=== PATIENT | female | born 1935 | race Caucasian/White ===

== ENCOUNTER → 2017-03-02 | Outpatient (CLI) | payer MEDICARE, OTHER ==
--- NOTE | 2017-03-06 10:00 | MM ---
Reason for exam: screening (asymptomatic). Last mammogram was performed 1 year and 11 months ago. History: Patient is postmenopausal, is of Ashkenazi Mandae[place] descent, and history of other cancer. Family history of breast cancer in sister at age 50, breast cancer in daughter at age 50, and breast cancer in maternal aunt at age 50. Excisional biopsy of both breasts, 1982. Physical Findings: A clinical breast exam by your physician is recommended on an annual basis and results should be correlated with mammographic findings. MG 3D Screening Mammo W/Cad Bilateral CC and MLO view(s) were taken. Prior study comparison: March 23, 2015, bilateral MG screening mammo w CAD. March 28, 2013, bilateral digital screening mammo w/CAD. There are scattered fibroglandular densities. No significant changes when compared with prior studies. ASSESSMENT: Negative, BI-RAD 1 RECOMMENDATION: Routine screening mammogram of both breasts in 1 year.
== END ==
LOC: RADMAMWWP 08:53
PROVIDERS: ATTEND Family Medicine
DX: Z12.31 Encounter for screening mammogram for malignant neoplasm of breast (principal)
CPT/HCPCS: 77063; G0202

== ENCOUNTER 2017-03-21 11:04 | Inpatient (IN) | payer MEDICARE, OTHER ==
[2017-03-21] MEDS ORDERED: IPRATROPIUM-ALBUTEROL 3 ML NEB INHALATION PRN (17:09)
[2017-03-21] MEDS: HYDROmorphone 1 MG/ML 1 ML SYRINGE IVP PRN (17:38)
--- NOTE | 2017-03-21 20:02 | P.PN ---
Progress Note - Text Patient seen and evaluated with new dressing change orders placed including three times a daily with showering twice daily. Patient has a yeast infection. Will differ to infectious disease for diflucan to avoid multiple interactions.
[2017-03-21] MEDS: HYDROcodone/APAP 7.5-325MG 1 EACH TAB PO PRN (20:07)
--- NOTE | 2017-03-21 20:31 | P.GSHP ---
History of Present Illness H&P Date: 03/21/17 Chief Complaint: Complicated left buttock including left labial cellulitis The patient is a 81-year-old female known to me who was initially admitted at an outside facility 1 week ago with leukocytosis including urinary tract infection, left buttock and perineal abscess. She was placed on prophylactic antibiotics including vancomycin and Unasyn. She then underwent excision and drainage of a left buttock cellulitis with cultures coming back as methicillin- resistant staph aureus infection with sensitivity to vancomycin. Despite conservative measures including IV vancomycin, her buttock wound and left vulva had worsening cellulitis. Given the limited wound care management at her transferring institution, she was transferred to [facility] for high- level care regarding her wound care and complicated wound. Today she went back to the operating room at the outside facility to have further drainage and debridement of her left buttock including left labia with placement of [place] drains connecting the left buttock to left labia along the perineum. Since admission, she reports feeling much better. Her soreness along her perineum has improved. Her dressing changes has been performed at bedside. I have been following her since her admission at the previous facility to her transfer to [facility]. - Review of Systems Comment: CONSTITUTIONAL: No recent fevers. Denies recent weight loss or weight gain. HEENT: Denies any trouble with vision, hearing or nosebleeds. No difficulty swallowing. LYMPHATIC: The patient denies any lumps and bumps around the neck. ENDOCRINE: Has thyroid disorder. Denies any blood sugar glucose intolerance. RESPIRATORY: Denies pneumonia. Has bilateral pleural effusions and a recent computed tomography scan. CARDIOVASCULAR: Denies any chest pain, palpitations, or recent heart attacks. GASTROINTESTINAL: Denies heart burn, constipation or bright red blood per rectum. GENITOURINARY: She presented with complicated urinary tract infection one week ago. Also history of yeast infections. MUSCULOSKELETAL: Has back pain, stiffness, joint arthritis. NEUROLOGIC: Denies any numbness or tingling along the distal extremities. No seizure disorders or headaches. PSYCHIATRIC: Denies depression or suidical ideation. HEMATOLOGIC: Denies any abnormal bleeding or bruising. Past Medical History Past Medical History: Hypertension, Osteoarthritis (OA), Thyroid Disorder History of Any Multi-Drug Resistant Organisms: MRSA Date of last positivie culture/infection: 03/21/2017 MDRO Source:: groin Additional Past Surgical History / Comment(s): I&D 03/15/17 and 03/21/17 of left buttock and left labia Past Psychological History: No Psychological Hx Reported Smoking Status: Never smoker Medications and Allergies Home Medications Medication Instructions Recorded Confirmed Type Hydrochlorothiazide 25 mg PO DAILY 03/21/17 03/21/17 History L.acidoph,Paracasei, B.lactis 1 cap PO DAILY 03/21/17 03/21/17 History [Probiotic] Levothyroxine Sodium [Synthroid] 50 mcg PO DAILY 03/21/17 03/21/17 History Meloxicam [Mobic] 7.5 mg PO DAILY 03/21/17 03/21/17 History Allergies Allergy/AdvReac Type Severity Reaction Status Date / Time iodine Allergy Unknown Unknown Verified 03/21/17 18:11 morphine Allergy Unknown Unknown Verified 03/21/17 18:11 codeine Allergy Unknown Verified 03/21/17 18:11 Sulfa (Sulfonamide Allergy Unknown Verified 03/21/17 18:11 Antibiotics) Surgical - Exam Vital Signs Temp Pulse Resp BP Pulse Ox 97.8 F 107 H 16 131/88 92 L 03/21/17 16:28 03/21/17 16:28 03/21/17 16:28 03/21/17 16:28 03/21/17 16:28 GENERAL: Well developed and in no acute distress. Pleasant. HEENT: No sclera icterus. Extraocular movements grossly intact. Moist buccal mucosa. Head is atraumatic, normocephalic. Hears conversational speech. No nasal drainage. NECK: Supple without lymphadenopathy. No JV distention. CHEST: Non-labored respirations and equal bilateral excursions. CARDIOVASCULAR: Regular rate and rhythm. Palpable 2+ radial pulses. ABDOMEN: Soft, nontender. Nondistended. MUSCULOSKELETAL: No clubbing, cyanosis or edema. NEUROLOGIC: No focal or lateralizing signs. PSYCH: Appropriate affect. Alert and oriented to person, place and time. SKIN: Decreased cellulitis and erythema of the left labia compared to this morning at outside facility. Cellulitis and induration of the left buttock improved since this morning. : Eason catheter present. Results - Imaging CT scan - abdomen: image reviewed CT scan - pelvis: image reviewed (CT of the abdomen and pelvis was obtained at outside institution on 03/20/2017 and personally reviewed. Findings consistent with bilateral pleural effusions. Increased induration of the left buttock and perineum was identified.) Assessment and Plan (1) Cellulitis of buttock, left Status: Acute (2) Left genital labial abscess Status: Acute (3) MRSA (methicillin resistant staph aureus) culture positive Status: Acute (4) Hypertension Status: Acute (5) Debility Status: Acute (6) Hypothyroidism Status: Acute (7) Bilateral pleural effusion Status: Acute (8) UTI (urinary tract infection) Status: Acute (9) Yeast infection involving the vagina and surrounding area Status: Acute Plan: 1. She has history of urinary tract infection from the transferring facility with an indwelling catheter. Recommend discontinuing her Eason catheter to minimize risk for recurrent ureteral tract infection. 2. CBC repeat for complicated buttock cellulitis with multidrug resistant organism. 3. Recommend home health care evaluation. 4. Recommend rehab evaluation given complicated perineum and buttock wound. 5. Dressing changes have been adjusted for Aquacell Ag rope with 4 inch packing along wound followed by 4 x 4's and ABDs pads three times daily. Jolene drain to continue with discharge and to be removed in the office. 6. Additional recommendations from infectious disease for treatment of yeast infection. 7. Recommend showering once to twice daily. 8. At this time, no additional surgical intervention needed.
[2017-03-21] MEDS: CLINDAMYCIN 600 MG in DEXTROSE 5% IN WATER 50 ML IVPB SCH ×2 (23:04)
[2017-03-21] MEDS: HEPARIN SODIUM,PORCINE 5,000 UNIT/ML 1 ML VIAL SQ SCH (23:04)
[2017-03-22] MEDS: LEVOTHYROXINE 50 MCG TAB PO SCH (05:16)
[2017-03-22] MEDS: HYDROcodone/APAP 7.5-325MG 1 EACH TAB PO PRN ×5 (05:16→22:30)
[2017-03-22] MEDS: HEPARIN SODIUM,PORCINE 5,000 UNIT/ML 1 ML VIAL SQ SCH ×2 (07:40→16:04)
[2017-03-22] MEDS: PANTOPRAZOLE 40 MG TABLET PO SCH (07:40)
[2017-03-22] MEDS: CLINDAMYCIN 600 MG in DEXTROSE 5% IN WATER 50 ML IVPB SCH ×2 (07:40)
[2017-03-22] MEDS: HYDROmorphone 1 MG/ML 1 ML SYRINGE IVP PRN ×3 (08:18→20:52)
[2017-03-22 09:00] LABS: Basophils % (A) 0 %; CH 31.3; CHCM 33.4; Eosinophils % (A) 0 %; HDW 2.48; HGB 12.9 gm/dL (11.4-16.0); Luc # (Auto) 0.14; Luc % (Auto) 2; Lymphocytes # (A) 1.4 k/uL (1.0-4.8); Lymphocytes % (A) 15 %; MCHC 34.1 g/dL (31.0-37.0); Mean Platelet Volume 7.9; Monocytes # (A) 0.3 k/uL (0-1.0); Monocytes % (A) 3 %; Neutrophils # (A) 7.3 k/uL (1.3-7.7); Neutrophils % (A) 80 %; RBC 4.04 m/uL (3.80-5.40); RDW 13.5 % (11.5-15.5); WBC 9.2 k/uL (3.8-10.6); WBC (Perox) 9.07
--- NOTE | 2017-03-22 09:27 | XR ---
EXAMINATION TYPE: XR chest 2V DATE OF EXAM: 03/22/2017 COMPARISON: 1014 HISTORY: Shortness of breath TECHNIQUE: Frontal and lateral views of the chest are obtained. FINDINGS: Scattered senescent parenchymal changes noted. Hyperinflation compatible with COPD. No evidence for infiltrate. No evidence for atelectasis. Heart size is stable. Small bilateral pleural effusions. Mediastinal structures are stable and grossly unremarkable. No evidence for hilar prominence. Degenerative changes dorsal spine. IMPRESSION: 1. No evidence for acute pulmonary disease. Small pleural effusions.
[2017-03-22 10:33] LABS: Anion Gap 6 mmol/L; Blood Urea Nitrogen 9 mg/dL (7-17); Calcium 8.3 mg/dL (8.4-10.2); Carbon Dioxide 29 mmol/L (22-30); Chloride 100 mmol/L (98-107); Glucose 101 mg/dL (74-99); Non-African American GFR(MDRD) >60 (>60 ml/min/1.73 sqM); Potassium 4.2 mmol/L (3.5-5.1); Sodium 135 mmol/L (137-145)
--- NOTE | 2017-03-22 10:53 | P.PN ---
<Verónica Zamudio - Last Filed: 03/22/17 10:44> Subjective 81-year-old female seen and examined this morning. Patient states there is less pain involving the left labia and left buttocks. Patient states if she attempts to sit up causes pain involving the left buttocks the left labia. Patient was a transfer to [facility] from another facility [facility] on March 21 for a higher level of care due to a complicated left labia cellulitis. Patient approximate week ago was admitted to an outside facility at that time had leukocytosis with a urinary tract infection with a left buttock and perineal abscess. Patient was placed on prophylactic antibiotics IV vancomycin and Unasyn. Patient underwent an excision and drainage of the left buttocks abscess cultures came back MRSA with sensitivity to vancomycin. Despite conservative measurements including IV daptomycin patient went back to the operating room at the other facility for further drainage and debridement of the left buttocks including the left labia with placement of 2 Jolene drains connecting the left buttock to the left labia along the peritoneum. Patient has been followed throughout the patient's course of hospitalizations by Dr. George. This morning the dressing has been removed the left buttocks and the left labia continues to be tender to the touch 2 [place] drains are in place the area is firm with redness. Currently has an indwelling Eason catheter in place. No odor noted from the dressings moderate amount of serous drainage Objective - Vital Signs Vital signs: Vital Signs Temp 96.2 F L 03/22/17 07:00 Pulse 73 03/22/17 07:00 Resp 18 03/22/17 07:00 BP 118/63 03/22/17 07:00 Pulse Ox 93 L 03/22/17 07:00 Intake & Output 03/21/17 03/22/17 03/22/17 18:59 06:59 18:59 Output Total 1100 Balance -1100 Weight 90 kg Output: Urine 1100 Other: Voiding Method Indwelling Catheter Indwelling Catheter - Exam GENERAL APPEARANCE: 81-year-old female patient is alert, oriented, in no acute distress. States there's less soreness from the peritoneal area VITAL SIGNS: Reviewed HEENT: Head is normocephalic and atraumatic. Pupils are equal and reactive. The nares are patent. Oropharynx is clear without lesions. NECK: Supple without lymphadenopathy. Traches midline. HEART: S1, S2. Regular rate and rhythm. Denying chest pain no murmur LUNGS: No crackles or wheezes are heard. Adequate air movement on room air ABDOMEN: Soft, nontender, nondistended with good bowel sounds. No peritoneal signs. No palpable organomegaly or masses. No stool patient reports 5 days indwelling Eason catheter currently in place EXTREMITIES: Normal skin color and turgor. No cyanosis, rash, ulceration, clubbing or edema. Radial pedal pulses are 2/4 bilaterally. NEUROLOGICAL: No focal deficits. Strength and sensation are grossly intact. there is decreased cellulitis and erythrema involving the left labia radiating to the left buttocks. Currently [address] Significant firm area noted to the left labia in the suprapubic area - Labs CBC & Chem 7: 03/22/17 07:45 03/22/17 09:45 Assessment and Plan Plan: Impression Assessment and Plan (1) Cellulitis of buttock, left Status: Acute (2) Left genital labial abscess Status: Acute (3) MRSA (methicillin resistant staph aureus) culture positive Status: Acute (4) Hypertension Status: Acute (5) Debility Status: Acute (6) Hypothyroidism Status: Acute (7) Bilateral pleural effusion Status: Acute (8) UTI (urinary tract infection) Status: Acute (9) Yeast infection involving the vagina and surrounding area Status: Acute Shower once to twice daily Await infectious diseases recommendations for treatment of the yeast infection Wound care as ordered Aquacel rope with 4 inch packing 3 times a day Jolene drain to continue with discharge and will be removed and Dr. George' s office History of a UTI from transferring facility with an indwelling Eason catheter Family is asking for Dr. Sanford infectious disease to participate in the plan of care we'll consult The above dictated assessment and findings were discussed with dr george Impression and the plan of care have been dictated as directed. Verónica Zamudio nurse practitioner acting as a scribe for dr george <Kylee George - Last Filed: 03/24/17 16:18> Objective - Vital Signs Vital signs: Vital Signs Temp 96.6 F L 03/24/17 15:00 Pulse 92 03/24/17 15:00 Resp 16 03/24/17 15:00 BP 108/53 03/24/17 15:00 Pulse Ox 92 L 03/24/17 15:00 Intake & Output 03/23/17 03/24/17 03/24/17 18:59 06:59 18:59 Intake Total 240 Balance 240 Intake: Oral 240 Other: Voiding Method Toilet # Voids 3 4 2 # Bowel Movements 0 - Labs CBC & Chem 7: 03/24/17 08:51 03/24/17 08:51 Labs: Abnormal Lab Results - Last 24 Hours (Table) 03/24/17 Range/Units 08:51 Glucose 105 H (74-99) mg/dL Assessment and Plan (1) Cellulitis of buttock, left Status: Acute (2) Left genital labial abscess Status: Acute (3) MRSA (methicillin resistant staph aureus) culture positive Status: Acute (4) Hypertension Status: Acute (5) Debility Status: Acute (6) Hypothyroidism Status: Acute (7) Bilateral pleural effusion Status: Acute (8) UTI (urinary tract infection) Status: Acute (9) Yeast infection involving the vagina and surrounding area Status: Acute Plan: Agree with above. Please see separate documentation.
[2017-03-22] MEDS: FLUCONAZOLE 150 MG TAB PO SCH (11:36)
[2017-03-22] MEDS: POLYETHYLENE GLYCOL 3350 17 GM POWD.PACK PO SCH (11:36)
[2017-03-22] MEDS: NYSTATIN 100,000 UNIT/ML SUSP 500,000 UNIT/5 ML CUP PO SCH ×3 (11:37→20:52)
[2017-03-22] MEDS: DOCUSATE 100 MG CAP PO SCH ×2 (11:37→20:51)
--- NOTE | 2017-03-22 13:43 | P.CONS ---
History of Present Illness - Reason for Consult Consult date: 03/22/17 Wound care and antibiotics - History of Present Illness This is an 81-year-old female who gives history that she has had problems since October in the perineal area and was initially seen by Dr. Friend and Cora BACH at Dr. Friend's office. She states she was placed on ointment and an antibiotic and then was sent to Dr. Edward and also Dr. Salazar. She states she has had 3 urinary tract infections since October and thinks that abscess to the perineal area has been ongoing since October. She also has had problems with vaginal yeast infections. Patient states she went to [facility] due to fevers and pain was going down her legs and she couldn't move with generalized malaise and lack of appetite. She was found to have leukocytosis at , thrombocytopenia with a platelet count of 123 and was admitted to the hospital. She was seen by Dr. Vargas from infectious disease. She was on Unasyn and vancomycin and also during her stay at [facility] she had some doses of clindamycin and Zyvox which may have been started on March 20. Patient went to the OR for I&D on 2 occasions, March 15 and [address] Starks. She had 2 CAT scans done and the repeat done on March 21 revealed inflammatory change in the perineum on the left side with subcutaneous air and density consistent with small abscess. New presacral fluid. Perineal inflammation to worry changes are significantly increased from last CAT scan. She had a urinalysis that showed nitrate negative. Leukocytes 3+, blood 1+. Apparently wound culture was positive for MRSA. She was transferred to [facility] for further treatment and is currently on clindamycin and daptomycin. She is on Diflucan for oral thrush which she states is much improved. She also states that her appetite has improved. Her white count is down to 9.2. Patient is planning for subacute rehab at the time of discharge. Patient is also noted to have a Eason catheter that was placed at [facility] and was discontinued this morning. Patient denies any urinary retention. Review of Systems All systems: negative Constitutional: Reports chills, Reports fatigue, Reports fever, Reports lethargy , Reports malaise, Reports poor appetite, Reports weakness Eyes: denies blurred vision, denies pain Ears, nose, mouth and throat: Reports mouth pain, Denies headache, Denies sore throat Cardiovascular: Denies chest pain, Denies shortness of breath Respiratory: Denies cough, Denies cough with sputum, Denies dyspnea, Denies excessive sputum, Denies hemoptysis Gastrointestinal: Denies abdominal pain, Denies diarrhea, Denies nausea, Denies vomiting Genitourinary: Reports dysuria, Reports vaginal discharge, Reports vaginal odor , Denies hematuria Musculoskeletal: Denies myalgias Integumentary: Reports wounds, Denies pruritus, Denies rash Neurological: Denies numbness, Denies weakness Psychiatric: Denies anxiety, Denies depression Endocrine: Denies fatigue, Denies weight change Past Medical History Past Medical History: COPD, Hypertension, Osteoarthritis (OA), Thyroid Disorder Additional Past Medical History / Comment(s): Cystic breast, 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 History of Any Multi-Drug Resistant Organisms: MRSA Year Discovered:: 03/21/2017 MDRO Source:: groin Past Surgical History: Appendectomy, Tonsillectomy Additional Past Surgical History / Comment(s): Varicose vein stripping, bilateral cataract removal and intraocular lens implants, skin biopsies and skin cancer removal, breast lumpectomy, I&D 03/15/17 and 03/21/17 of left buttock and left labia Past Psychological History: No Psychological Hx Reported Smoking Status: Never smoker Additional Past Alcohol Use History / Comment(s): Patient is a lifelong nonsmoker but she did have years of exposure to secondhand smoke. 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 She denies any medical marijuana, marijuana, street drug use. She drinks alcohol very rare basis. Medications and Allergies Home Medications Medication Instructions Recorded Confirmed Type Hydrochlorothiazide 25 mg PO DAILY 03/21/17 03/21/17 History L.acidoph,Paracasei, B.lactis 1 cap PO DAILY 03/21/17 03/21/17 History [Probiotic] Levothyroxine Sodium [Synthroid] 50 mcg PO DAILY 03/21/17 03/21/17 History Meloxicam [Mobic] 7.5 mg PO DAILY 03/21/17 03/21/17 History Allergies Allergy/AdvReac Type Severity Reaction Status Date / Time iodine Allergy Unknown Unknown Verified 03/21/17 18:11 morphine Allergy Unknown Unknown Verified 03/21/17 18:11 codeine Allergy Unknown Verified 03/21/17 18:11 Sulfa (Sulfonamide Allergy Unknown Verified 03/21/17 18:11 Antibiotics) Physical Exam Vitals: Vital Signs Temp Pulse Resp BP Pulse Ox 03/22/17 07:00 96.2 F L 73 18 118/63 93 L 03/21/17 23:00 96.9 F L 90 17 98/66 92 L 03/21/17 17:58 107 H 16 03/21/17 16:28 97.8 F 107 H 16 131/88 92 L Intake and Output 03/21/17 03/22/17 03/22/17 22:59 06:59 14:59 Output Total 350 750 Balance -350 -750 Output: Urine 350 750 Other: Voiding Method Indwelling Catheter Indwelling Catheter Weight 90 kg Gen: This is an 81-year-old female. She is sitting up in a chair and eating lunch and appears to be in no acute distress. HEENT: Head is atraumatic, normocephalic. Pupils equal, round. Sclerae is anicteric. Conjunctiva pink. Mucous members of the mouth are moist. No thrush noted. NECK: Supple. No JVD. No lymphadenopathy. No thyromegaly. LUNGS: Diminished in the bases but otherwise clear to auscultation. No wheezes or rhonchi. No intercostal retractions. HEART: Regular rate and rhythm. No murmur. ABDOMEN: Soft. Bowel sounds are present. No masses. No tenderness. Perineal exam deferred to Dr. Sanford. EXTREMITIES: No pedal edema. No calf tenderness. Dorsalis pedis weak bilaterally. NEUROLOGICAL: Patient is awake, alert and oriented x3. Cranial nerves 2 through 12 are grossly intact. Results Results: Laboratory Results WBC 9.2 k/uL (3.8-10.6) 03/22/17 07:45 RBC 4.04 m/uL (3.80-5.40) 03/22/17 07:45 Hgb 12.9 gm/dL (11.4-16.0) 03/22/17 07:45 Hct 38.0 % (34.0-46.0) 03/22/17 07:45 MCV 94.0 fL (80.0-100.0) 03/22/17 07:45 MCH 32.0 pg (25.0-35.0) 03/22/17 07:45 MCHC 34.1 g/dL (31.0-37.0) 03/22/17 07:45 RDW 13.5 % (11.5-15.5) 03/22/17 07:45 Plt Count 290 k/uL (150-450) 03/22/17 07:45 Neutrophils % 80 % 03/22/17 07:45 Lymphocytes % 15 % 03/22/17 07:45 Monocytes % 3 % 03/22/17 07:45 Eosinophils % 0 % 03/22/17 07:45 Basophils % 0 % 03/22/17 07:45 Neutrophils # 7.3 k/uL (1.3-7.7) 03/22/17 07:45 Lymphocytes # 1.4 k/uL (1.0-4.8) 03/22/17 07:45 Monocytes # 0.3 k/uL (0-1.0) 03/22/17 07:45 Eosinophils # 0.0 k/uL (0-0.7) 03/22/17 07:45 Basophils # 0.0 k/uL (0-0.2) 03/22/17 07:45 Sodium 135 mmol/L (137-145) L 03/22/17 09:45 Potassium 4.2 mmol/L (3.5-5.1) 03/22/17 09:45 Chloride 100 mmol/L (98-107) 03/22/17 09:45 Carbon Dioxide 29 mmol/L (22-30) 03/22/17 09:45 Anion Gap 6 mmol/L 03/22/17 09:45 BUN 9 mg/dL (7-17) 03/22/17 09:45 Creatinine 0.72 mg/dL (0.52-1.04) 03/22/17 09:45 Est GFR (MDRD) Af Amer >60 (>60 ml/min/1.73 sqM) 03/22/17 09:45 Est GFR (MDRD) Non-Af >60 (>60 ml/min/1.73 sqM) 03/22/17 09:45 Glucose 101 mg/dL (74-99) H 03/22/17 09:45 Calcium 8.3 mg/dL (8.4-10.2) L 03/22/17 09:45 CBC & Chem 7: 03/24/17 08:51 03/24/17 08:51 Labs: Abnormal Lab Results - Last 24 Hours (Table) 03/22/17 Range/Units 09:45 Sodium 135 L (137-145) mmol/L Glucose 101 H (74-99) mg/dL Calcium 8.3 L (8.4-10.2) mg/dL Assessment and Plan Plan: This is an 81-year-old female who presented to [facility] on March 13 with signs of sepsis and left labial abscess and buttocks cellulitis. Patient is currently on IV antibiotics the form of clindamycin and daptomycin. Antibiotics will be changed to daptomycin and ertapenem. Local wound care will be addressed. Continue supportive care. Further recommendations as patient progresses. The above dictated assessment and findings were discussed with Dr. Sanford. The impression and plan of care have been directed as dictated. Lenora Fernandez nurse practitioner acting as scribe for Dr. Sanford.
[2017-03-22] MEDS ORDERED: diphenhydrAMINE 50 MG/ML 1 ML VIAL IVP STA (14:22)
--- NOTE | 2017-03-22 18:17 | P.CON ---
Consult Note - . Consult date: 03/22/17 Assessment/Plan:: This is an 81-year-old female who gives history that she has had problems since October in the perineal area and was initially seen by Dr. Friend and Cora BACH at Dr. Friend's office. She states she was placed on ointment and an antibiotic and then was sent to Dr. Edward and also Dr. Salazar. She states she has had 3 urinary tract infections since October and thinks that abscess to the perineal area has been ongoing since October. She also has had problems with vaginal yeast infections. Patient states she went to [facility] due to fevers and pain was going down her legs and she couldn't move with generalized malaise and lack of appetite. She was found to have leukocytosis at 17, thrombocytopenia with a platelet count of 123 and was admitted to the hospital. She was seen by Dr. Vargas from infectious disease. She was on Unasyn and vancomycin and also during her stay at [facility] she had some doses of clindamycin and Zyvox which may have been started on March 20. Patient went to the OR for I&D on 2 occasions, March 15 and March [address] Starks. She had 2 CAT scans done and the repeat done on March 21 revealed inflammatory change in the perineum on the left side with subcutaneous air and density consistent with small abscess. New presacral fluid. Perineal inflammation to worry changes are significantly increased from last CAT scan. She had a urinalysis that showed nitrate negative. Leukocytes 3+, blood 1+. Apparently wound culture was positive for MRSA. She was transferred to [facility] for further treatment and is currently on clindamycin and daptomycin. She is on Diflucan for oral thrush which she states is much improved. She also states that her appetite has improved. Her white count is down to 9.2. Patient is planning for subacute rehab at the time of discharge. Patient is also noted to have a Eason catheter that was placed at [facility] and was discontinued this morning. Patient denies any urinary retention. Please see the consult note is dictated by nurse practitioner Mrs. Lenora Fernandez. Patient does have a history of the sudden onset of the significant infection. The Vanco RAIN is 2. Consequently vancomycin likely has failed will be utilized for daptomycin therapy for now. The data from the other hospital also reveals evidence of gram-negative bacilli seen at the original Gram stain and culture and consequently will add in ertapenem at this time for treatment of aerobic and anaerobic gram-negative organisms. Local wound care is being done with the Aquacel silver and absorptive pads which is adequate. Air mattress overlay as requested Patient is evidence of a painful set of blisters in the very proximal aspect of the buttocks. Appears this could be shingles. Valtrex will be started. When sure she is getting adequate protein intake, and multivitamin. Will need IV access the PICC line which has been requested. I agree with evaluation, assessment and plan as dictated by nurse practitioner Mrs. Lenora Fernandez.
[2017-03-22] MEDS: ERTAPENEM 1 GM in SODIUM CHLORIDE 0.9% 50 ML IVPB SCH (20:51)
[2017-03-22] MEDS: valACYclovir 500 MG TAB PO SCH (20:52)
[2017-03-22 21:15] LABS: Hemoglobin A1C 5.6 % (4.2-6.1)
--- NOTE | 2017-03-22 21:55 | P.PN ---
Progress Note - Text Patient seen and evaluated.Fmaily at bedside. Patient reports improvement of buttock and perineum discomfort. WBC now normal after 9 days. Patient reports new onset flushing following Diflucan. Daughter reports new heart irregular rhythm present just prior to admission. Will obtain EKG and cardiology assessment. Discharge pending evaluation by infectious disease including cardiology assessment. Agree with rehab for recovery.
[2017-03-23] MEDS: HEPARIN SODIUM,PORCINE 5,000 UNIT/ML 1 ML VIAL SQ SCH ×3 (00:32→17:05)
[2017-03-23] MEDS: HYDROmorphone 1 MG/ML 1 ML SYRINGE IVP PRN ×6 (00:58→22:46)
[2017-03-23] MEDS: HYDROcodone/APAP 7.5-325MG 1 EACH TAB PO PRN ×5 (02:42→20:16)
[2017-03-23] MEDS: LEVOTHYROXINE 50 MCG TAB PO SCH (05:33)
--- NOTE | 2017-03-23 06:50 | CONS ---
DATE OF CONSULTATION: 03/22/2017 REASON FOR CONSULTATION: Medical management requested by Dr. Starks. CONSULTATION: This is an 81-year-old patient who was admitted to [facility] from 03/13/17 and transferred yesterday on 03/21/17. Patient presented with extensive buttock abscess and this was started as a pimple back in October then it got worse and one week prior to presentation became rather severe. Patient initially taken to the operating room on 03/15/[address] Starks then taken back to the OR on 03/21/17 as the wound had seemed to progress. Patient's cultures did grow MRSA. Patient was followed by Dr. Saxena ) from internal medicine and Dr. Vargas from infectious disease at the other center. On the day of transfer, I resumed the medical service care. Patient also seen to have an allergic reaction to VANCOMYCIN. The patient was switched over daptomycin prior to transfer and actually patient had a petechial rash from the same, which actually was getting better. REVIEW OF SYSTEMS: CONSTITUTIONAL: Tired. HEENT: None. RESPIRATORY: Some shortness of breath. CARDIOVASCULAR: None. GASTROINTESTINAL: None. GENITOURINARY: Eason catheter. DERMATOLOGICAL: As above. LYMPHATICS: None. PSYCHIATRY: None. NEUROLOGICAL: None. MUSCULOSKELETAL: Pains in different joints, especially the hands and knees. PSYCHIATRY: None. PAST MEDICAL HISTORY: Osteoarthritis, COPD, hypertension, hypothyroid, GERD with hiatal hernia. PAST SURGICAL HISTORY: Appendectomy, tonsillectomy, varicose vein stripping, bilateral cataract removal, skin biopsies, breast lumpectomy. SOCIAL HISTORY: Lives by herself. 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 Alcohol rarely. No smoking. FAMILY HISTORY: Reviewed, noncontributory to the presentation. CURRENT MEDICATIONS: Daptomycin, artificial tears, DuoNeb, Diflucan, Jolley, Synthroid 50, Protonix, MiraLAX, Valtrex. On examination, temperature 96.5, pulse 85, respirations 19, blood pressure 112/59, pulse ox 95% on room air. GENERAL APPEARANCE: Well built, BMI of 35. Sitting up, tired appearing. EYES: Pupils equal. Conjunctivae normal. HEENT: Oral cavity some aphthous ulcers. NECK: JVD not raised. Mass not palpable. RESPIRATORY: Effort normal. Lungs are clear. CARDIOVASCULAR: First and second sounds normal. No edema. ABDOMEN: Soft, nontender. Liver and spleen not palpable. LYMPHATIC: No lymph nodes palpable in neck or axillae. PSYCHIATRY: Alert and oriented x3. Mood and affect normal. There is an early rash in the lower back. INVESTIGATIONS: White count 9.2, hemoglobin 12.9. Potassium 4.2. ASSESSMENT: 1. Left buttock abscess, status post being taken to the OR x2. Cultures growing methicillin-resistant Staphylococcus aureus. 2. Primary osteoarthritis in multiple joints, including hands and knees. 3. Chronic obstructive pulmonary disease in a nonsmoker. 4. Essential hypertension. 5. Hypothyroidism. 6. Gastroesophageal reflux disease in a patient with hiatal hernia. 7. Allergic reaction to VANCOMYCIN. 8. Possibly herpes zoster. 9. Aphthous ulceration of the mouth. 10. Atrial fibrillation, rate controlled, new diagnosis. PLAN: At this point, patient's home medications will be continued. Will order a 2-D echocardiogram. Check patient's thyroid status and will start the patient on Eliquis after I discuss this with the family and the patient. Antibiotics are coordinated by Dr. Sanford. Care was discussed. Patient's family wishes to change the family doctor. Will discuss that closer to discharge.
[2017-03-23] MEDS: valACYclovir 500 MG TAB PO SCH ×2 (08:27→20:17)
[2017-03-23] MEDS: FLUCONAZOLE 150 MG TAB PO SCH (08:27)
[2017-03-23] MEDS: DOCUSATE 100 MG CAP PO SCH ×2 (08:27→20:17)
[2017-03-23] MEDS: POLYETHYLENE GLYCOL 3350 17 GM POWD.PACK PO SCH (08:27)
[2017-03-23] MEDS: NYSTATIN 100,000 UNIT/ML SUSP 500,000 UNIT/5 ML CUP PO SCH ×4 (08:27→20:17)
[2017-03-23] MEDS: PANTOPRAZOLE 40 MG TABLET PO SCH (08:27)
--- NOTE | 2017-03-23 11:23 | P.PN ---
Subjective 81-year-old female being seen and examined this morning currently patient states continues to have pain in the perineal area. Patient is being followed by infectious disease and surgical service Patient was transferred from [facility] where patient was being treated at the facility for fever pain was found to have a perineal abscess. Patient had been followed at the facility by Dr. Starks had gone to the OR on [address] Starks March 15 and March 21 at which time patient had an incision and drainage of the perineal abscess. Subsequent the patient's family and the patient requested to be transferred to [facility] from the facility due to a higher level of care due to the complicated left labia cellulitis abscess. Did note infectious diseases recommendations they did start the patient on Valtrex for what appears to be shingles painful blisters in the proximal aspect of the buttocks.. The wound cultures that were obtained at the other facility were apparently positive for MRSA.. Eason catheter has been removed patient states urinating with no difficulty no stool Objective - Vital Signs Vital signs: Vital Signs Temp 96.5 F L 03/22/17 23:00 Pulse 84 03/23/17 07:00 Resp 19 03/23/17 07:00 BP 128/71 03/23/17 07:00 Pulse Ox 95 03/23/17 07:00 Intake & Output 03/22/17 03/23/17 03/23/17 18:59 06:59 18:59 Intake Total 500 Balance 500 Intake: Oral 500 Other: Voiding Method Indwelling Catheter Toilet Toilet Bedside Commode # Voids 1 3 1 # Bowel Movements 0 - Exam GENERAL APPEARANCE: 81-year-old female patient is alert, oriented to person place event, . States there's less soreness from the peritoneal area VITAL SIGNS: Reviewed HEENT: Head is normocephalic and atraumatic. Pupils are equal and reactive. The nares are patent. Oropharynx is clear without lesions. NECK: Supple without lymphadenopathy. Traches midline. HEART: S1, S2. Regular rate and rhythm. Denying chest pain no murmur LUNGS: No crackles or wheezes are heard. Adequate air movement on room air no cough noted ABDOMEN: Soft, nontender, nondistended with good bowel sounds. No peritoneal signs. No palpable organomegaly or masses. States urinating no difficulty no incontinence. No stool EXTREMITIES: Normal skin color and turgor. No cyanosis, rash, ulceration, clubbing or edema. Radial pedal pulses are 2/4 bilaterally. NEUROLOGICAL: No focal deficits. Strength and sensation are grossly intact. there is decreased cellulitis and erythrema involving the left labia radiating to the left buttocks. Currently [address] Significant firm area noted to the left labia in the suprapubic area surgical dressing removed a moderate amount of serous drainage noted no odor noted from the area - Labs CBC & Chem 7: 03/22/17 07:45 03/22/17 09:45 Labs: Abnormal Lab Results - Last 24 Hours (Table) 03/22/17 03/22/17 Range/Units 07:40 09:45 ESR 25 H (0-20) mm/hr Prealbumin 11 L (18-36) mg/dL Assessment and Plan Plan: Impression Assessment and Plan (1) Cellulitis of buttock, left Status: Acute (2) Left genital labial abscess Status: Acute (3) MRSA (methicillin resistant staph aureus) culture positive Status: Acute (4) Hypertension Status: Acute (5) Debility Status: Acute (6) Hypothyroidism Status: Acute (7) Bilateral pleural effusion Status: Acute (8) UTI (urinary tract infection) Status: Acute (9) Yeast infection involving the vagina and surrounding area Status: Acute Suspect shingles proximal aspect of the buttocks present on admission Valtrex started And MAX recommendations by infectious disease Shower once to twice daily Wound care as ordered Aquacel rope with 4 inch packing 3 times a day Jolene drain to continue with discharge and will be removed and Dr. Starks' s office History of a UTI from transferring facility with an indwelling Eason catheter Follow-up on pending echocardiogram done on March 23 manager loan pursuing the discharge plan patient and family interested in subacute rehab when medically stable The above dictated assessment and findings were discussed with dr starks Impression and the plan of care have been dictated as directed. Verónica Zamudio nurse practitioner acting as a scribe for dr starks
[2017-03-23] MEDS: MULTIVITAMINS, THERA 1 EACH TAB PO SCH (12:17)
--- NOTE | 2017-03-23 12:36 | ECHOF ---
Referral Reason:af MEASUREMENTS -------- HEIGHT: 160.0 cm WEIGHT: 89.8 kg BP: 118/58 RVIDd: 2.2 cm (< 3.3) IVSd: 1.0 cm (0.6 - 1.1) LVIDd: 4.1 cm (3.9 - 5.3) LVPWd: 1.1 cm (0.6 - 1.1) IVSs: 1.1 cm LVIDs: 3.1 cm LVPWs: 1.2 cm LA Diam: 3.4 cm (2.7 - 3.8) LAESV Index (A-L): 20.49 ml/m Ao Diam: 3.2 cm (2.0 - 3.7) AV Cusp: 1.7 cm (1.5 - 2.6) LA Diam: 3.0 cm (2.7 - 3.8) MV EXCURSION: 22.278 mm (> 18.000) MV EF SLOPE: 129 mm/s (70 - 150) EPSS: 0.5 cm MV E Gus: 0.83 m/s MV DecT: 106 ms MV A Gus: 0.39 m/s MV E/A Ratio: 2.11 RAP: 5.00 mmHg RVSP: 37.39 mmHg FINDINGS -------- Atrial fibrillation. This was a technically adequate study. There is mild concentric left ventricular hypertrophy. Overall left ventricular systolic function is low-normal with, an EF between 50 - 55 %. The right ventricle is normal in size. The right atrial size is normal. There is mild aortic valve sclerosis. There is no evidence of aortic regurgitation. Mild mitral annular calcification present. Moderate mitral regurgitation is present. Moderate tricuspid regurgitation present. There is mild pulmonary hypertension. The right ventricular systolic pressure, as measured by Doppler, is 37.39mmHg. There is no pulmonic regurgitation present. There is no pericardial effusion. CONCLUSIONS -------- 1. There is mild concentric left ventricular hypertrophy. 2. There is no pericardial effusion. 3. Overall left ventricular systolic function is low-normal with, an EF between 50 - 55 %. 4. There is mild aortic valve sclerosis. 5. Mild mitral annular calcification present. 6. Moderate mitral regurgitation is present. 7. Moderate tricuspid regurgitation present. 8. There is mild pulmonary hypertension. 9. The right ventricular systolic pressure, as measured by Doppler, is 37.39mmHg. 10. There is no pulmonic regurgitation present. HELICOPTER MECHANIC: Daniella Casillas RDCS
[2017-03-23] MEDS: ERTAPENEM 1 GM in SODIUM CHLORIDE 0.9% 50 ML IVPB SCH (20:07)
--- NOTE | 2017-03-23 21:19 | P.PN ---
Subjective Principal diagnosis: Labia abscess with MRSA This is an 81-year-old female who gives history that she has had problems since October in the perineal area and was initially seen by Dr. Friend and Cora BACH at Dr. Friend's office. She states she was placed on ointment and an antibiotic and then was sent to Dr. Edward and also Dr. Salazar. She states she has had 3 urinary tract infections since October and thinks that abscess to the perineal area has been ongoing since October. She also has had problems with vaginal yeast infections. Patient states she went to [facility] due to fevers and pain was going down her legs and she couldn't move with generalized malaise and lack of appetite. She was found to have leukocytosis at 17, thrombocytopenia with a platelet count of 123 and was admitted to the hospital. She was seen by Dr. Vargas from infectious disease. She was on Unasyn and vancomycin and also [facility] she had some doses of clindamycin and Zyvox which may have been started on March 20. Patient went to the OR for I&D on 2 occasions, March 15 and March [address] Starks. She had 2 CAT scans done and the repeat done on March 21 revealed inflammatory change in the perineum on the left side with subcutaneous air and density consistent with small abscess. New presacral fluid. Perineal inflammation to worry changes are significantly increased from last CAT scan. She had a urinalysis that showed nitrate negative. Leukocytes 3+, blood 1+. Apparently wound culture was positive for MRSA. She was transferred to [facility] for further treatment and is currently on clindamycin and daptomycin. She is on Diflucan for oral thrush which she states is much improved. She also states that her appetite has improved. Patient feels better today. Still discontinued because amount of pain and discomfort she is having but is being well treated. Air mattress overlay to the bed was very comforting. She is no other acute complaints. Looks forward to improving over time. Objective - Vital Signs Vital signs: Vital Signs Temp 97.2 F L 03/23/17 15:00 Pulse 99 03/23/17 15:00 Resp 18 03/23/17 15:00 BP 108/58 03/23/17 15:00 Pulse Ox 93 L 03/23/17 15:00 Intake & Output 03/23/17 03/23/17 03/24/17 06:59 18:59 06:59 Intake Total 500 Balance 500 Intake: Oral 500 Other: Voiding Method Toilet Toilet Bedside Commode # Voids 3 3 # Bowel Movements 0 - Exam Gen: This is an 81-year-old female. She is sitting up in a chair and eating lunch and appears to be in no acute distress. HEENT: Head is atraumatic, normocephalic. Pupils equal, round. Sclerae is anicteric. Conjunctiva pink. Mucous members of the mouth are moist. No thrush noted. NECK: Supple. No JVD. No lymphadenopathy. No thyromegaly. LUNGS: Diminished in the bases but otherwise clear to auscultation. No wheezes or rhonchi. No intercostal retractions. HEART: Regular rate and rhythm. No murmur. ABDOMEN: Soft. Bowel sounds are present. No masses. No tenderness. With the nurses presents the genital exam had occurred. Evidence of the large incision and drainage to the left labial abscess. Dense induration is noted. Some warmth and erythema still noted. Still quite tender to touch. It does track down to the left buttocks area. There is no expressible purulence through the thick indurated tissue. EXTREMITIES: No pedal edema. No calf tenderness. Dorsalis pedis weak bilaterally. NEUROLOGICAL: Patient is awake, alert and oriented x3 - Labs CBC & Chem 7: 03/22/17 07:45 03/22/17 09:45 Labs: Abnormal Lab Results - Last 24 Hours (Table) 03/22/17 Range/Units 07:40 ESR 25 H (0-20) mm/hr Laboratory Results WBC 9.2 k/uL (3.8-10.6) 03/22/17 07:45 RBC 4.04 m/uL (3.80-5.40) 03/22/17 07:45 Hgb 12.9 gm/dL (11.4-16.0) 03/22/17 07:45 Hct 38.0 % (34.0-46.0) 03/22/17 07:45 MCV 94.0 fL (80.0-100.0) 03/22/17 07:45 MCH 32.0 pg (25.0-35.0) 03/22/17 07:45 MCHC 34.1 g/dL (31.0-37.0) 03/22/17 07:45 RDW 13.5 % (11.5-15.5) 03/22/17 07:45 Plt Count 290 k/uL (150-450) 03/22/17 07:45 Neutrophils % 80 % 03/22/17 07:45 Lymphocytes % 15 % 03/22/17 07:45 Monocytes % 3 % 03/22/17 07:45 Eosinophils % 0 % 03/22/17 07:45 Basophils % 0 % 03/22/17 07:45 Neutrophils # 7.3 k/uL (1.3-7.7) 03/22/17 07:45 Lymphocytes # 1.4 k/uL (1.0-4.8) 03/22/17 07:45 Monocytes # 0.3 k/uL (0-1.0) 03/22/17 07:45 Eosinophils # 0.0 k/uL (0-0.7) 03/22/17 07:45 Basophils # 0.0 k/uL (0-0.2) 03/22/17 07:45 ESR 25 mm/hr (0-20) H 03/22/17 07:40 Sodium 135 mmol/L (137-145) L 03/22/17 09:45 Potassium 4.2 mmol/L (3.5-5.1) 03/22/17 09:45 Chloride 100 mmol/L (98-107) 03/22/17 09:45 Carbon Dioxide 29 mmol/L (22-30) 03/22/17 09:45 Anion Gap 6 mmol/L 03/22/17 09:45 BUN 9 mg/dL (7-17) 03/22/17 09:45 Creatinine 0.72 mg/dL (0.52-1.04) 03/22/17 09:45 Est GFR (MDRD) Af Amer >60 (>60 ml/min/1.73 sqM) 03/22/17 09:45 Est GFR (MDRD) Non-Af >60 (>60 ml/min/1.73 sqM) 03/22/17 09:45 Glucose 101 mg/dL (74-99) H 03/22/17 09:[address] Glu mg/dL 114 mg/dL 03/22/17 09:45 Hemoglobin A1c 5.6 % (4.2-6.1) 03/22/17 09:45 Calcium 8.3 mg/dL (8.4-10.2) L 03/22/17 09:45 Prealbumin 11 mg/dL (18-36) L 03/22/17 09:45 TSH 1.520 mIU/L (0.465-4.680) 03/22/17 09:45 Other facility reveals evidence of MRSA at this site. Vanco RAIN of 2. Assessment and Plan (1) Left genital labial abscess Narrative/Plan: Patient does have a history of the sudden onset of the significant infection. The Vanco RAIN is 2. Consequently vancomycin likely has failed will be utilized for daptomycin therapy for now. The data from the other hospital also reveals evidence of gram-negative bacilli seen at the original Gram stain and culture and consequently will add in ertapenem at this time for treatment of aerobic and anaerobic gram-negative organisms. Local wound care is being done with the Aquacel silver and absorptive pads which is adequate. Air mattress overlay as been placed and improved her comfort. Patient is evidence of a painful set of blisters in the very proximal aspect of the buttocks. Appears this could be shingles. Valtrex will be started. Awaiting improvement When sure she is getting adequate protein intake, and multivitamin. Will need IV access the PICC line has been requested. Status: Acute (2) MRSA (methicillin resistant staph aureus) culture positive Status: Acute
--- NOTE | 2017-03-23 21:33 | P.PN ---
Progress Note - Text DATE OF SERVICE: 03/23/2017 PRESENTING COMPLAINT: Medical management, buttock abscess INTERVAL HISTORY: This is a patient who was transferred from the [facility] with treatment for buttock abscess. Patient's cultures grew MRSA and is on antibiotics per ID. Today, patient is sitting up with family at the bedside, appears pale but awake alert and conversant. Tolerating her diet, sitting the chair periodically and ambulatory with some assistance. REVIEW OF SYSTEMS: Done for constitutional ,cardiovascular, GI, pulmonary with relevant findings as above. CURRENT MEDICATIONS [place], daptomycin, ertapenem, Diflucan, valacyclovir, Protonix, nystatin,. PHYSICAL EXAM: VITAL SIGNS: Temperature 96.5 pulse 85 respiratory rate 19 blood pressure 112/ 59 oxygen saturation 95% on room air. GENERAL APPEARANCE: Average build. Lying in bed, not in distress. EYES: Pupils equal. Conjunctiva normal. NECK: JVD not raised. Mass not palpable. RESPIRATORY: Respiratory effort normal. Lungs clear to auscultation. CARDIOVASCULAR: First and second sounds normal. No edema. ABDOMEN: Soft. Liver and spleen not palpable. No tenderness. No mass palpable. PSYCHIATRY: Alert and oriented x3. Mood and affect normal. NEUROLOGICAL: Cranial nerves grossly intact. No facial asymmetry. Power and sensation grossly intact GENITOURINARY: Perineum noted to have some drainage Jolene drain in place as well as packing. INVESTIGATIONS: Echocardiogram: Atrial fibrillation, EF between 50 and 55% No new labs to report. ASSESSMENT: 1. Left buttock abscess, status post being taken to the OR 2. Cultures growing methicillin-resistant Staphylococcus aureus. 2. Acute herpes zoster 3. Primary osteoarthritis of multiple joints, including hands and knees. 4. Essential hypertension. 5. Hypothyroidism. 6. Gastroesophageal reflux disease in a patient with a hiatal hernia. 7. ALLERGIC reaction to VANCOMYCIN PLAN: Patient to be started on anticoagulation secondary to atrial fibrillation. Antibiotics to continue, Valtrex for herpes zoster. We'll continue to monitor closely. SEASONER statement: Patient was seen and examined by nurse practitioner Carmne Morin in all elements of the case discussed with attending is Dr. Portillo
[2017-03-23] MEDS: APIXABAN 5 MG TAB PO SCH (22:48)
[2017-03-24] MEDS: HYDROcodone/APAP 7.5-325MG 1 EACH TAB PO PRN ×5 (00:21→18:59)
[2017-03-24] MEDS: HYDROmorphone 1 MG/ML 1 ML SYRINGE IVP PRN ×4 (03:51→21:13)
[2017-03-24] MEDS: LEVOTHYROXINE 50 MCG TAB PO SCH (06:24)
[2017-03-24] MEDS: PANTOPRAZOLE 40 MG TABLET PO SCH (08:00)
[2017-03-24] MEDS: APIXABAN 5 MG TAB PO SCH ×2 (09:00→21:51)
[2017-03-24 09:15] LABS: Basophils % (A) 1 %; CHCM 33.1; Eosinophils # (A) 0.1 k/uL (0-0.7); Eosinophils % (A) 1 %; HCT 37.4 % (34.0-46.0); HDW 2.41; HGB 12.4 gm/dL (11.4-16.0); Luc % (Auto) 3; Lymphocytes # (A) 1.6 k/uL (1.0-4.8); Lymphocytes % (A) 21 %; MCH 31.2 pg (25.0-35.0); MCHC 33.1 g/dL (31.0-37.0); MCV 94.3 fL (80.0-100.0); Mean Platelet Volume 6.9; Monocytes # (A) 0.4 k/uL (0-1.0); Monocytes % (A) 5 %; Neutrophils # (A) 5.5 k/uL (1.3-7.7); Neutrophils % (A) 69 %; RBC 3.97 m/uL (3.80-5.40); RDW 13.8 % (11.5-15.5); WBC 7.9 k/uL (3.8-10.6); WBC (Perox) 8.39
[2017-03-24 09:46] LABS: Anion Gap 10 mmol/L; Blood Urea Nitrogen 8 mg/dL (7-17); Calcium 8.4 mg/dL (8.4-10.2); Carbon Dioxide 26 mmol/L (22-30); Chloride 101 mmol/L (98-107); Glucose 105 mg/dL (74-99); Non-African American GFR(MDRD) >60 (>60 ml/min/1.73 sqM); Potassium 4.2 mmol/L (3.5-5.1); Sodium 137 mmol/L (137-145)
[2017-03-24] MEDS: FLUCONAZOLE 150 MG TAB PO SCH (10:25)
[2017-03-24] MEDS: POLYETHYLENE GLYCOL 3350 17 GM POWD.PACK PO SCH (10:26)
[2017-03-24] MEDS: NYSTATIN 100,000 UNIT/ML SUSP 500,000 UNIT/5 ML CUP PO SCH ×4 (10:26→21:51)
[2017-03-24] MEDS: valACYclovir HCL 1,000 MG TABLET PO SCH ×2 (10:29→21:51)
[2017-03-24] MEDS: DOCUSATE 100 MG CAP PO SCH ×2 (10:29→21:51)
--- NOTE | 2017-03-24 12:17 | PN ---
DATE OF SERVICE: 03/23/2017 ATTENDING NOTE: This patient was seen and examined by me today. I reviewed the note of my nurse practitioner, Ms. Morin. Discussed additional findings below. Patient has got a buttock abscess, status post surgery x2 also being treated for herpes zoster. Also found to have atrial fibrillation. A 2-D echo was ordered. The patient tolerating some diet. Has actually walked to the bathroom. Sat up on chair. Did tolerate some food. Two daughters at the bedside. ON EXAM: LUNGS: Fair air entry. CARDIOVASCULAR: Heart sounds irregular. ABDOMEN: Soft, nontender. INVESTIGATIONS: No blood work from today. EKG did show atrial fibrillation. The 2-D echocardiogram shows EF of 50% to 55%, moderate mitral regurgitation, moderate tricuspid regurgitation, preserved LV function. TSH is normal. ASSESSMENT: 1. Left buttock abscess, status post surgery x2. Cultures growing methicillin-resistant Staphylococcus aureus. 2. Acute herpes zoster. 3. Persistent atrial fibrillation, new diagnosis, present for the last few days, but this was probably found at surgery. PLAN: Care was discussed at length with the patient's family members. Patient will be started on Eliquis. Care was discussed with the patient and 2 daughters in details. Will start the patient on Eliquis.
--- NOTE | 2017-03-24 13:11 | P.CRDCN ---
History of Present Illness Consult date: 03/24/17 History of present illness: This is a pleasant 81-year-old female patient with no prior cardiac history who never seen a machine printer hose in the past who was admitted to the hospital with what it seems to be an extensive abscess involving the buttock area as well as the back. The patient underwent 2 surgeries and she is going to have a PICC line this coming Monday before she is going to be discharged home. We get involved in the care of the patient because she went into an A. fib yesterday which seems to be any radial diagnosis atrial fibrillation. The patient has been maintaining a good blood pressure and slightly elevated heart rate. She was started on anticoagulation using Eliquis. She denies having any chest pain at this point but she stated that she was at home experiencing rare episodes of chest discomfort. She underwent an echocardiogram which showed normal LV function without any significant valvular abnormalities. I am going to add a small dose of metoprolol to the current medical treatment. Continue anticoagulation. We will follow-up with the patient on a when necessary case. 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 History of Any Multi-Drug Resistant Organisms: MRSA Date of last positivie culture/infection: 03/21/2017 MDRO Source:: groin Past Surgical History: Appendectomy, Tonsillectomy Additional Past Surgical History / Comment(s): Varicose vein stripping, bilateral cataract removal and intraocular lens implants, skin biopsies and skin cancer removal, breast lumpectomy, I&D 03/15/17 and 03/21/17 of left buttock and left labia Past Psychological History: No Psychological Hx Reported Smoking Status: Never smoker Additional Past Alcohol Use History / Comment(s): Patient is a lifelong nonsmoker but she did have years of exposure to secondhand smoke. 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 She denies any medical marijuana, marijuana, street drug use. She drinks alcohol very rare basis. Medications and Allergies Home Medications Medication Instructions Recorded Confirmed Type Hydrochlorothiazide 25 mg PO DAILY 03/21/17 03/21/17 History L.acidoph,Paracasei, B.lactis 1 cap PO DAILY 03/21/17 03/21/17 History [Probiotic] Levothyroxine Sodium [Synthroid] 50 mcg PO DAILY 03/21/17 03/21/17 History Meloxicam [Mobic] 7.5 mg PO DAILY 03/21/17 03/21/17 History Allergies Allergy/AdvReac Type Severity Reaction Status Date / Time iodine Allergy Unknown Unknown Verified 03/21/17 18:11 morphine Allergy Unknown Unknown Verified 03/21/17 18:11 codeine Allergy Unknown Verified 03/21/17 18:11 Sulfa (Sulfonamide Allergy Unknown Verified 03/21/17 18:11 Antibiotics) Physical Exam Vitals: Vital Signs Temp Pulse Resp BP Pulse Ox 03/24/17 07:00 97.2 F L 108 H 18 121/76 96 03/23/17 23:00 96.7 F L 83 18 103/51 92 L 03/23/17 15:00 97.2 F L 99 18 108/58 93 L Intake and Output 03/23/17 03/24/17 03/24/17 22:59 06:59 14:59 Intake Total 240 Balance 240 Intake: Oral 240 Other: Voiding Method Toilet # Voids 3 4 - Constitutional General appearance: no acute distress - Respiratory Respiratory: bilateral: CTA - Cardiovascular Rhythm: irregularly irregular Heart sounds: normal: S1, S2 Results 03/24/17 08:51 03/24/17 08:51 CBC 03/24/17 Range/Units 08:51 WBC 7.9 (3.8-10.6) k/uL RBC 3.97 (3.80-5.40) m/uL Hgb 12.4 (11.4-16.0) gm/dL Hct 37.4 (34.0-46.0) % Plt Count 359 (150-450) k/uL Comprehensive Metabolic Panel 03/24/17 Range/Units 08:51 Sodium 137 (137-145) mmol/L Potassium 4.2 (3.5-5.1) mmol/L Chloride 101 (98-107) mmol/L Carbon Dioxide 26 (22-30) mmol/L BUN 8 (7-17) mg/dL Creatinine 0.74 (0.52-1.04) mg/dL Glucose 105 H (74-99) mg/dL Calcium 8.4 (8.4-10.2) mg/dL Current Medications Generic Name Dose Route Start Last Admin Trade Name Freq PRN Reason Stop Dose Admin Hydrocodone Bitart/Acetaminophen 1 each 03/21/17 17:07 03/24/17 10:24 [place] 7.5-325 PO 1 each Q4H PRN Administration Moderate Pain Albuterol/Ipratropium 3 ml 03/21/17 17:09 Duoneb 0.5 Mg-3 Mg/3 Ml Soln INHALATION RT-TID PRN Shortness Of Breath Or Wheezing Apixaban 5 mg 03/23/17 22:00 03/24/17 09:00 Eliquis PO 5 mg BID BLANCA Administration Artificial Tears 2 drops 03/22/17 17:57 Artificial Tear Drops BOTH EYES QID PRN Dry Eye(s) Docusate Sodium 100 mg 03/22/17 11:00 03/24/17 10:29 Colace PO 100 mg BID BLANCA Administration Fluconazole 150 mg 03/22/17 10:30 03/24/17 10:25 Diflucan PO 150 mg DAILY BLANCA Administration Hydromorphone HCl 0.5 mg 03/21/17 17:07 03/24/17 09:33 Dilaudid IVP 0.5 mg Q4HR PRN Administration Severe Pain Daptomycin 400 mg/ Sodium 50 mls @ 100 mls/hr 03/22/17 09:00 03/24/17 10:25 Chloride IV 100 mls/hr Q24HR BLANCA Administration Ertapenem 1 gm/ Sodium 50 mls @ 100 mls/hr 03/22/17 19:00 03/23/17 20:07 Chloride IVPB 100 mls/hr Q24H BLANCA Administration Levothyroxine Sodium 50 mcg 03/22/17 06:30 03/24/17 06:24 Synthroid PO 50 mcg DAILY@0630 BLANCA Administration Metoprolol Tartrate 12.5 mg 03/24/17 21:00 Lopressor PO BID BLANCA Multivitamins 1 each 03/23/17 12:00 03/23/17 12:17 Theragran PO 1 each DAILY@1200 BLANCA Administration Nystatin 500,000 unit 03/22/17 12:00 03/24/17 10:26 Mycostatin Oral Susp PO 500,000 unit QID BLANCA Administration Pantoprazole Sodium 40 mg 03/22/17 07:30 03/24/17 08:00 Protonix PO 40 mg [id number]-[id number] BLANCA Administration Polyethylene Glycol 17 gm 03/22/17 11:00 03/24/17 10:26 Miralax PO 17 gm DAILY BLANCA Administration Valacyclovir HCl 1,000 mg 03/24/17 09:00 03/24/17 10:29 Valtrex PO 1,000 mg BID BLANCA Administration Intake and Output 03/23/17 03/24/17 03/24/17 22:59 06:59 14:59 Intake Total 240 Balance 240 Intake: Oral 240 Other: Voiding Method Toilet # Voids 3 4 03/24/17 08:51 03/24/17 08:51 Assessment and Plan Plan: Assessment #1 atrial fibrillation which seems to be newly diagnosis #2 abscesses involving the buttock and low back Plan #1 add metoprolol to the current medical treatment #2 continue anticoagulation #3 the echocardiogram was reviewed We will continue following up with the patient on when necessary case and thank you for allowing us participate in her care
--- NOTE | 2017-03-24 13:20 | P.PN ---
Subjective Principal diagnosis: Labia abscess with MRSA This is an 81-year-old female who gives history that she has had problems since October in the perineal area and was initially seen by Dr. Friend and Cora BACH at Dr. Friend's office. She states she was placed on ointment and an antibiotic and then was sent to Dr. Edward and also Dr. Salazar. She states she has had 3 urinary tract infections since October and thinks that abscess to the perineal area has been ongoing since October. She also has had problems with vaginal yeast infections. Patient states she went to [facility] due to fevers and pain was going down her legs and she couldn't move with generalized malaise and lack of appetite. She was found to have leukocytosis at 17, thrombocytopenia with a platelet count of 123 and was admitted to the hospital. She was seen by Dr. Vargas from infectious disease. She was on Unasyn and vancomycin and also during her stay at [facility] she had some doses of clindamycin and Zyvox which may have been started on March 20. Patient went to the OR for I&D on 2 occasions, March 15 and March [address] Starks. She had 2 CAT scans done and the repeat done on March 21 revealed inflammatory change in the perineum on the left side with subcutaneous air and density consistent with small abscess. New presacral fluid. Perineal inflammation to worry changes are significantly increased from last CAT scan. She had a urinalysis that showed nitrate negative. Leukocytes 3+, blood 1+. Apparently wound culture was positive for MRSA. She was transferred to [facility] for further treatment and is currently on clindamycin and daptomycin. She is on Diflucan for oral thrush which she states is much improved. She also states that her appetite has improved. Patient feels better today. Still discontinued because amount of pain and discomfort she is having but is being well treated. Air mattress overlay to the bed was very comforting. She is no other acute complaints. Looks forward to improving over time. We'll add in his seat cushion also so when she is up in the chair she has less discomfort. Objective - Vital Signs Vital signs: Vital Signs Temp 97.2 F L 03/24/17 07:00 Pulse 108 H 03/24/17 07:00 Resp 18 03/24/17 07:00 BP 121/76 03/24/17 07:00 Pulse Ox 96 03/24/17 07:00 Intake & Output 03/23/17 03/24/17 03/24/17 18:59 06:59 18:59 Intake Total 240 Balance 240 Intake: Oral 240 Other: Voiding Method Toilet # Voids 3 4 # Bowel Movements 0 - Exam Gen: This is an 81-year-old female. She is sitting up in a chair and eating lunch and appears to be in no acute distress. HEENT: Head is atraumatic, normocephalic. Pupils equal, round. Sclerae is anicteric. Conjunctiva pink. Mucous members of the mouth are moist. No thrush noted. NECK: Supple. No JVD. No lymphadenopathy. No thyromegaly. LUNGS: Diminished in the bases but otherwise clear to auscultation. No wheezes or rhonchi. No intercostal retractions. HEART: Regular rate and rhythm. No murmur. ABDOMEN: Soft. Bowel sounds are present. No masses. No tenderness. With the nurses presents the genital exam had occurred. Evidence of the large incision and drainage to the left labial abscess. Dense induration is noted. Some warmth and erythema still noted. Still quite tender to touch. It does track down to the left buttocks area. There is no expressible purulence through the thick indurated tissue. EXTREMITIES: No pedal edema. No calf tenderness. Dorsalis pedis weak bilaterally. NEUROLOGICAL: Patient is awake, alert and oriented x3 Skin the area of blisters on the midpoint of the back just above the buttocks fold is noted slightly improved. Still slightly tender. Has not increased. - Labs CBC & Chem 7: 03/24/17 08:51 03/24/17 08:51 Labs: Abnormal Lab Results - Last 24 Hours (Table) 03/24/17 Range/Units 08:51 Glucose 105 H (74-99) mg/dL Laboratory Results WBC 7.9 k/uL (3.8-10.6) 03/24/17 08:51 RBC 3.97 m/uL (3.80-5.40) 03/24/17 08:51 Hgb 12.4 gm/dL (11.4-16.0) 03/24/17 08:51 Hct 37.4 % (34.0-46.0) 03/24/17 08:51 MCV 94.3 fL (80.0-100.0) 03/24/17 08:51 MCH 31.2 pg (25.0-35.0) 03/24/17 08:51 MCHC 33.1 g/dL (31.0-37.0) 03/24/17 08:51 RDW 13.8 % (11.5-15.5) 03/24/17 08:51 Plt Count 359 k/uL (150-450) 03/24/17 08:51 Neutrophils % 69 % 03/24/17 08:51 Lymphocytes % 21 % 03/24/17 08:51 Monocytes % 5 % 03/24/17 08:51 Eosinophils % 1 % 03/24/17 08:51 Basophils % 1 % 03/24/17 08:51 Neutrophils # 5.5 k/uL (1.3-7.7) 03/24/17 08:51 Lymphocytes # 1.6 k/uL (1.0-4.8) 03/24/17 08:51 Monocytes # 0.4 k/uL (0-1.0) 03/24/17 08:51 Eosinophils # 0.1 k/uL (0-0.7) 03/24/17 08:51 Basophils # 0.0 k/uL (0-0.2) 03/24/17 08:51 ESR 25 mm/hr (0-20) H 03/22/17 07:40 Sodium 137 mmol/L (137-145) 03/24/17 08:51 Potassium 4.2 mmol/L (3.5-5.1) 03/24/17 08:51 Chloride 101 mmol/L (98-107) 03/24/17 08:51 Carbon Dioxide 26 mmol/L (22-30) 03/24/17 08:51 Anion Gap 10 mmol/L 03/24/17 08:51 BUN 8 mg/dL (7-17) 03/24/17 08:51 Creatinine 0.74 mg/dL (0.52-1.04) 03/24/17 08:51 Est GFR (MDRD) Af Amer >60 (>60 ml/min/1.73 sqM) 03/24/17 08:51 Est GFR (MDRD) Non-Af >60 (>60 ml/min/1.73 sqM) 03/24/17 08:51 Glucose 105 mg/dL (74-99) H 03/24/17 08:[address] Glu mg/dL 114 mg/dL 03/22/17 09:45 Hemoglobin A1c 5.6 % (4.2-6.1) 03/22/17 09:45 Calcium 8.4 mg/dL (8.4-10.2) 03/24/17 08:51 Prealbumin 11 mg/dL (18-36) L 03/22/17 09:45 TSH 1.520 mIU/L (0.465-4.680) 03/22/17 09:45 Assessment and Plan (1) Left genital labial abscess Narrative/Plan: Patient does have a history of the sudden onset of the significant infection. The Vanco RAIN is 2. Consequently vancomycin likely has failed will be utilized for daptomycin therapy for now. The data from the other hospital also reveals evidence of gram-negative bacilli seen at the original Gram stain and culture and consequently will add in ertapenem at this time for treatment of aerobic and anaerobic gram-negative organisms. Local wound care is being done with the Aquacel silver and absorptive pads which is adequate. Air mattress overlay as been placed and improved her comfort. Patient is evidence of a painful set of blisters in the very proximal aspect of the buttocks. Appears this could be shingles. Valtrex was started. Showing minimal improvement continue covering with the DuoDERM. When sure she is getting adequate protein intake, and multivitamin. Will need IV access the PICC line has been requested. Continue to try to maximize her comfort an air cushion for her chair is requested. Status: Acute (2) MRSA (methicillin resistant staph aureus) culture positive Status: Acute
[2017-03-24] MEDS: MULTIVITAMINS, THERA 1 EACH TAB PO SCH (13:27)
--- NOTE | 2017-03-24 14:34 | P.PN ---
Subjective 81-year-old female being seen currently sitting up in a chair. Patient does state there continues to be persistent pain involving the peritoneal area. There is less swelling in the perineal area with less drainage noted. Has [address]. Patient is scheduled to have a PICC line placed for outpatient antibiotic therapy this is to be scheduled on Monday currently on hold did note that the patient had an episode of atrial fibrillation on the . Cardiology is participating in the plan of care patient was started on elquist Patient did have an echocardiogram done March 23. It showed left systolic function low normal with an EF between 50 and 55%. Patient continues to deny any chest pain or shortness of breath when questioning Objective - Vital Signs Vital signs: Vital Signs Temp 97.2 F L 03/24/17 07:00 Pulse 108 H 03/24/17 07:00 Resp 18 03/24/17 07:00 BP 121/76 03/24/17 07:00 Pulse Ox 96 03/24/17 07:00 Intake & Output 03/23/17 03/24/17 03/24/17 18:59 06:59 18:59 Intake Total 240 Balance 240 Intake: Oral 240 Other: Voiding Method Toilet # Voids 3 4 # Bowel Movements 0 - Exam GENERAL APPEARANCE: 81-year-old female patient is alert, oriented to person place event, . States slight improvement from the pain in the peritoneal area VITAL SIGNS: Reviewed HEENT: Head is normocephalic and atraumatic. Pupils are equal and reactive. The nares are patent. Oropharynx is clear without lesions. NECK: Supple without lymphadenopathy. Traches midline. HEART: S1, S2. Regular rate and rhythm. Denying chest pain no murmur LUNGS: No crackles or wheezes are heard. Adequate air movement on room air no cough noted ABDOMEN: Soft, nontender, nondistended with good bowel sounds. No peritoneal signs. No palpable organomegaly or masses. States urinating no difficulty no incontinence. No stool EXTREMITIES: Normal skin color and turgor. No cyanosis, rash, ulceration, clubbing or edema. Radial pedal pulses are 2/4 bilaterally. NEUROLOGICAL: No focal deficits. Strength and sensation are grossly intact. there is decreased cellulitis and erythrema involving the left labia radiating to the left buttocks. Currently [address] Significant firm area noted to the left labia in the suprapubic area surgical dressing removed a moderate amount of serous drainage noted no odor noted from the area - Labs CBC & Chem 7: 03/24/17 08:51 03/24/17 08:51 Labs: Abnormal Lab Results - Last 24 Hours (Table) 03/24/17 Range/Units 08:51 Glucose 105 H (74-99) mg/dL Assessment and Plan Plan: Impression Assessment and Plan (1) Cellulitis of buttock, left Status: Acute (2) Left genital labial abscess Status: Acute (3) MRSA (methicillin resistant staph aureus) culture positive Status: Acute (4) Hypertension Status: Acute (5) Debility Status: Acute (6) Hypothyroidism Status: Acute (7) Bilateral pleural effusion Status: Acute (8) UTI (urinary tract infection) Status: Acute (9) Yeast infection involving the vagina and surrounding area Status: Acute Suspect shingles proximal aspect of the buttocks present on admission Valtrex started And MAX recommendations by infectious disease Shower once to twice daily Wound care as ordered Aquacel rope with 4 inch packing 3 times a day [place] drain to continue with discharge and will be removed and Dr. George' s office History of a UTI from transferring facility with an indwelling Eason catheter New-onset atrial fibrillation rate controlled elquis to be stopped after Monday's dose Echocardiogram obtained on March 23 shows left ventricular systolic function low normal EF between 50 and 55%. 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 marcum covering for dr george Impression and the plan of care have been dictated as directed. Verónica Zamudio nurse practitioner acting as a scribe for dr marcum covering for dr george Time with Patient: Greater than 30
--- NOTE | 2017-03-24 18:39 | P.PN ---
Progress Note - Text DATE OF SERVICE: 03/23/2017 PRESENTING COMPLAINT: Medical management, buttock abscess INTERVAL HISTORY: This is a patient who was transferred from the [facility] with treatment for buttock abscess. Patient's cultures grew MRSA and is on antibiotics per ID. Today, patient is sitting up with family at the bedside, appears pale but awake alert and conversant. Tolerating her diet, sitting the chair periodically and ambulatory with some assistance. REVIEW OF SYSTEMS: Done for constitutional ,cardiovascular, GI, pulmonary with relevant findings as above. CURRENT MEDICATIONS [place], daptomycin, ertapenem, Diflucan, valacyclovir, Protonix, nystatin,. PHYSICAL EXAM: VITAL SIGNS: Temperature 96.5 pulse 85 respiratory rate 19 blood pressure 112/ 59 oxygen saturation 95% on room air. GENERAL APPEARANCE: Average build. Lying in bed, not in distress. EYES: Pupils equal. Conjunctiva normal. NECK: JVD not raised. Mass not palpable. RESPIRATORY: Respiratory effort normal. Lungs clear to auscultation. CARDIOVASCULAR: First and second sounds normal. No edema. ABDOMEN: Soft. Liver and spleen not palpable. No tenderness. No mass palpable. PSYCHIATRY: Alert and oriented x3. Mood and affect normal. NEUROLOGICAL: Cranial nerves grossly intact. No facial asymmetry. Power and sensation grossly intact GENITOURINARY: Perineum noted to have some drainage [address] as well as packing. INVESTIGATIONS: Echocardiogram: Atrial fibrillation, EF between 50 and 55% No new labs to report. ASSESSMENT: 1. Left buttock abscess, status post being taken to the OR 2. Cultures growing methicillin-resistant Staphylococcus aureus. 2. Acute herpes zoster slowly improving. 3. Persistent atrial fibrillation, new diagnosis, present for the last few days , likely recognized during surgery. 4. Primary osteoarthritis of multiple joints, including hands and knees. 5. Essential hypertension. 6. Hypothyroidism. 7. Gastroesophageal reflux disease in a patient with a hiatal hernia. 8. ALLERGIC reaction to VANCOMYCIN PLAN: Patient to be started on anticoagulation secondary to atrial fibrillation. Patient will receive a dose of Apixaban on Monday it will be stopped for anticipated PICC line placement on Monday. Antibiotics to continue, Valtrex for herpes zoster. We'll continue to monitor closely. FERTILIZER APPLICATOR statement: Patient was seen and examined by nurse practitioner Carmen Morin in all elements of the case discussed with attending is Dr. Portillo
[2017-03-24] MEDS: IBUPROFEN 800 MG TAB PO PRN (18:57)
[2017-03-24] MEDS: ERTAPENEM 1 GM in SODIUM CHLORIDE 0.9% 50 ML IVPB SCH (18:57)
[2017-03-24] MEDS: METOPROLOL TARTRATE 12.5 MG TAB PO SCH (21:51)
--- NOTE | 2017-03-24 22:43 | PN ---
DATE OF SERVICE: 03/23/2017 PRESENTING COMPLAINT: Buttock abscess. INTERVAL HISTORY: This is a patient status post x2 surgery on buttock abscess, growing MRSA, getting antibiotics. Also being treated for herpes zoster. Patient was started on Eliquis, but patient will definitely have a PICC line placed. The patient has been up to the bathroom. Did tolerate a diet. Family at the bedside. Review of systems done for constitutional, cardiovascular, GI, pulmonary relevant findings as above. Current medications are reviewed that include Eliquis and IV daptomycin, Diflucan. On examination, temperature 97.2, pulse 108, respirations 18, blood pressure 120/76, pulse ox 96% on room air. GENERAL APPEARANCE: Lying in bed, not in distress. EYES: Pupils equal. Conjunctivae normal. NECK: JVD not raised. Mass not palpable. RESPIRATORY: Effort normal. Lungs are clear. CARDIOVASCULAR: Heart sounds irregular. No edema. ABDOMEN: Soft, nontender. Liver and spleen not palpable. PSYCHIATRY: Alert and oriented x3. Mood and affect normal. INVESTIGATIONS: 2D echo results noted. ASSESSMENT: 1. Left buttock abscess status post OR times 2 growing Methicillin-resistant Staph aureus. 2. Acute herpes zoster. 3. Primary osteoarthritis of multiple joints, including hands and knees. 4. Essential hypertension. 5. Hypothyroidism. 6. Gastroesophageal reflux disease in a patient with known hiatal hernia. 7. ALLERGIC REACTION TO VANCOMYCIN. 8. Persistent atrial fibrillation with rate controlled. 9. Moderate mitral and tricuspid regurgitation, nonrheumatic. PLAN: Care was discussed at length with the patient and family members. Discussed why she needs to be on Eliquis again. Awaiting a PICC line that will happen on Monday. We will establish cardiology with cardiology consultation. They wish to follow with Dr. Joseph Marino. Total time spent today was about 35 to 40 minutes with over 25 minutes of discussion. Questions were answered.
[2017-03-25] MEDS: LEVOTHYROXINE 50 MCG TAB PO SCH (06:13)
[2017-03-25] MEDS: HYDROcodone/APAP 7.5-325MG 1 EACH TAB PO PRN ×5 (06:15→23:20)
[2017-03-25 08:10] LABS: Basophils % (A) 0 %; CH 31.3; CHCM 32.5; Eosinophils # (A) 0.1 k/uL (0-0.7); Eosinophils % (A) 2 %; HDW 2.27; HGB 11.5 gm/dL (11.4-16.0); Luc # (Auto) 0.11; Luc % (Auto) 2; Lymphocytes # (A) 1.3 k/uL (1.0-4.8); Lymphocytes % (A) 23 %; Mean Platelet Volume 7.3; Monocytes # (A) 0.4 k/uL (0-1.0); Monocytes % (A) 7 %; Neutrophils # (A) 3.7 k/uL (1.3-7.7); Neutrophils % (A) 66 %; RBC 3.72 m/uL (3.80-5.40); WBC 5.6 k/uL (3.8-10.6); WBC (Perox) 5.78
[2017-03-25 08:21] LABS: Anion Gap 9 mmol/L; Blood Urea Nitrogen 6 mg/dL (7-17); Calcium 8.5 mg/dL (8.4-10.2); Carbon Dioxide 26 mmol/L (22-30); Chloride 103 mmol/L (98-107); Glucose 92 mg/dL (74-99); Non-African American GFR(MDRD) >60 (>60 ml/min/1.73 sqM); Potassium 4.4 mmol/L (3.5-5.1); Sodium 138 mmol/L (137-145)
[2017-03-25] MEDS: METOPROLOL TARTRATE 12.5 MG TAB PO SCH ×2 (09:28→21:36)
[2017-03-25] MEDS: valACYclovir HCL 1,000 MG TABLET PO SCH ×2 (09:28→21:36)
[2017-03-25] MEDS: NYSTATIN 100,000 UNIT/ML SUSP 500,000 UNIT/5 ML CUP PO SCH ×5 (09:29→21:40)
[2017-03-25] MEDS: ARTIFICIAL TEARS-HYPROMELLOSE DROPS 15 ML BTL BOTH EYES PRN (09:29)
[2017-03-25] MEDS: FLUCONAZOLE 150 MG TAB PO SCH (09:29)
[2017-03-25] MEDS: POLYETHYLENE GLYCOL 3350 17 GM POWD.PACK PO SCH (09:29)
[2017-03-25] MEDS: DOCUSATE 100 MG CAP PO SCH ×3 (09:30→21:40)
[2017-03-25] MEDS: APIXABAN 5 MG TAB PO SCH (09:30)
[2017-03-25] MEDS: PANTOPRAZOLE 40 MG TABLET PO SCH (09:30)
[2017-03-25] MEDS: MULTIVITAMINS, THERA 1 EACH TAB PO SCH (09:30)
--- NOTE | 2017-03-25 11:00 | P.PN ---
Progress Note - Text 81-year-old female status post incision and drainage of an abscess. Pain is better controlled today. There is no nausea or vomiting. His been no fevers. Onexamination she is afebrile vital signs are stable. There's no jaundice or icterus. She is breathing without using accessory muscles of respiration. Heart rate is regular. She's not pale. Her skin is warm to touch. She has 2+ edema in bilateral lower extremities. There is no cyanosis. There's no jaundice. His no icterus. Abdomen is soft. The incision itself was inspected and a Jolene drains are in place there is no purulent drainage no obvious necrotic material there is significant amount of induration along the length of the inncision Sessile and plan I believe her peripheral edema is primarily from not moving. She is on liquids do not suspect DVT. I will have her get an ultrasound lower extremities because of the pain that she is describing. I did have a look at the wound edges look clean dry and healthy at this time. I recommend continuing silver dressing. We'll continue with antibiotics. She is to get a PICC line in the morning and will be discharged after that.
[2017-03-25] MEDS: IBUPROFEN 800 MG TAB PO PRN ×2 (12:30→23:20)
--- NOTE | 2017-03-25 12:37 | US ---
EXAMINATION TYPE: US venous doppler duplex LE BI DATE OF EXAM: 03/25/2017 12:12 PM COMPARISON: NONE CLINICAL HISTORY: rule out DVT. Bilateral edema SIDE PERFORMED: Bilateral TECHNIQUE: The lower extremity deep venous system is examined utilizing real time linear array sonog beryl with graded compression, doppler sonography and color-flow sonography. VESSELS IMAGED: External Iliac Vein (EIV) Common Femoral Vein Deep Femoral Vein Greater Saphenous Vein * Femoral Vein Popliteal Vein Proximal Calf Veins (* superficial vessels) Right Leg: Negative for DVT Left Leg: Negative for DVT Grayscale, color doppler, spectral doppler imaging performed of the deep veins of the lower extremiti es. There is normal flow, compressibility, vascular waveforms bilaterally. IMPRESSION: No ultrasound evidence for acute DVT in either lower extremity.
[2017-03-25] MEDS: ERTAPENEM 1 GM in SODIUM CHLORIDE 0.9% 50 ML IVPB SCH (18:03)
--- NOTE | 2017-03-25 19:41 | P.PN ---
Progress Note - Text DATE OF SERVICE: 03/25/2017 PRESENTING COMPLAINT: Medical management, buttock abscess INTERVAL HISTORY: This is a patient who was transferred from the care of [facility] with treatment for buttock abscess. Growing MRSA and is on daptomycin. Today, patient is sitting up with family at the bedside, appears better pink in her cheeks.. Tolerating her diet, sitting the chair periodically and ambulatory with some assistance. REVIEW OF SYSTEMS: Done for constitutional ,cardiovascular, GI, ,pulmonary with relevant findings as above. CURRENT MEDICATIONS [place], daptomycin, ertapenem, Diflucan, valacyclovir, Protonix, nystatin, Apixaban PHYSICAL EXAM: VITAL SIGNS: Temperature 97.6, pulse 86, respiratory rate 20, blood pressure 122 /80, oxygen saturation 94% on room air. GENERAL APPEARANCE: Sitting in bed, comfortable. EYES: Pupils equal. Conjunctiva normal. NECK: JVD not raised. Mass not palpable. RESPIRATORY: Respiratory effort normal. Lungs clear to auscultation. CARDIOVASCULAR: First and second sounds normal. No edema. ABDOMEN: Soft. Liver and spleen not palpable. No tenderness. No mass palpable. PSYCHIATRY: Alert and oriented x3. Mood and affect normal. GENITOURINARY: Perineum with 2 [place] drains packing to the incisional area. INVESTIGATIONS: Hemoglobin 11.5, BUN 6 creatinine 0.68 Venous Doppler: Negative for DVT in the lower extremities area ASSESSMENT: 1. Left buttock abscess, status post being taken to the OR 2. Cultures growing methicillin-resistant Staphylococcus aureus. 2. Acute herpes zoster slowly improving. 3. Persistent atrial fibrillation, new diagnosis, present for the last few days , on eliquis currently held for PICC line Monday. 4. Primary osteoarthritis of multiple joints, including hands and knees. 5. Essential hypertension. 6. Hypothyroidism. 7. Gastroesophageal reflux disease in a patient with a hiatal hernia. 8. ALLERGIC reaction to VANCOMYCIN 9. Moderate mitral and tricuspid regurgitation, nonrheumatic. PLAN: Eliquis currently held for PICC placement on Monday. Antibiotics to continue, Valtrex for herpes zoster. Daughters at the bedside plan of care discussed with patient and family. We'll continue to monitor closely. NIGHT CLERK statement: Patient was seen and examined by nurse practitioner Carmen Morin in all elements of the case discussed with attending is Dr. Portillo
[2017-03-25] MEDS: diphenhydrAMINE 2% CREAM 28.4 GM TUBE TOPICAL SCH (21:36)
[2017-03-26] MEDS: LEVOTHYROXINE 50 MCG TAB PO SCH (05:57)
[2017-03-26] MEDS: HYDROcodone/APAP 7.5-325MG 1 EACH TAB PO PRN ×4 (06:00→20:19)
[2017-03-26 08:07] LABS: Basophils % (A) 1 %; CH 31.4; CHCM 32.3; Eosinophils # (A) 0.1 k/uL (0-0.7); Eosinophils % (A) 2 %; HCT 33.8 % (34.0-46.0); HDW 2.23; HGB 10.7 gm/dL (11.4-16.0); Luc # (Auto) 0.13; Luc % (Auto) 3; Lymphocytes # (A) 1.2 k/uL (1.0-4.8); Lymphocytes % (A) 27 %; MCHC 31.7 g/dL (31.0-37.0); MCV 97.7 fL (80.0-100.0); Mean Platelet Volume 7.1; Monocytes # (A) 0.3 k/uL (0-1.0); Monocytes % (A) 7 %; Neutrophils # (A) 2.6 k/uL (1.3-7.7); Neutrophils % (A) 61 %; RBC 3.46 m/uL (3.80-5.40); RDW 14.1 % (11.5-15.5); WBC 4.4 k/uL (3.8-10.6); WBC (Perox) 4.66
[2017-03-26 08:19] LABS: Anion Gap 5 mmol/L; Blood Urea Nitrogen 7 mg/dL (7-17); Calcium 8.5 mg/dL (8.4-10.2); Carbon Dioxide 28 mmol/L (22-30); Chloride 106 mmol/L (98-107); Glucose 90 mg/dL (74-99); Non-African American GFR(MDRD) >60 (>60 ml/min/1.73 sqM); Potassium 4.4 mmol/L (3.5-5.1); Sodium 139 mmol/L (137-145)
[2017-03-26] MEDS: ARTIFICIAL TEARS-HYPROMELLOSE DROPS 15 ML BTL BOTH EYES PRN (08:30)
[2017-03-26] MEDS: FLUCONAZOLE 150 MG TAB PO SCH (08:30)
[2017-03-26] MEDS: POLYETHYLENE GLYCOL 3350 17 GM POWD.PACK PO SCH (08:30)
[2017-03-26] MEDS: DOCUSATE 100 MG CAP PO SCH ×3 (08:30→20:20)
[2017-03-26] MEDS: valACYclovir HCL 1,000 MG TABLET PO SCH ×2 (08:30→20:17)
[2017-03-26] MEDS: NYSTATIN 100,000 UNIT/ML SUSP 500,000 UNIT/5 ML CUP PO SCH ×4 (08:30→21:32)
[2017-03-26] MEDS: diphenhydrAMINE 2% CREAM 28.4 GM TUBE TOPICAL SCH ×2 (08:30→20:17)
[2017-03-26] MEDS: METOPROLOL TARTRATE 12.5 MG TAB PO SCH ×2 (08:31→20:17)
[2017-03-26] MEDS: PANTOPRAZOLE 40 MG TABLET PO SCH (08:32)
[2017-03-26] MEDS: MULTIVITAMINS, THERA 1 EACH TAB PO SCH (08:32)
--- NOTE | 2017-03-26 11:07 | PN ---
DATE OF SERVICE: 03/25/2017 ATTENDING NOTE: This patient seen and examined by me earlier today. I reviewed the note of my nurse practitioner, Ms. Morin. Discussed additional findings below. Patient buttock abscess, status post I&D growing MRSA, on daptomycin also getting Valtrex for herpes zoster. Continues to look better and better. Two daughters at the bedside. Has been out of bed. On examination, afebrile. LUNGS: [place] air entry. CARDIOVASCULAR: First and second sounds normal. ASSESSMENT: 1. Left buttocks abscess growing Methicillin-resistant Staph aureus, status post surgery. 2. Persistent atrial fibrillation. PLAN: I spoke to Dr. Joseph Marino with whom the patient wishes to follow. He will follow as an outpatient. Currently Lizzie is being held for a PICC line, due for Monday. Hopefully, then she can go to the ECF. Care was discussed with patient and daughter at the bedside. Questions were answered.
--- NOTE | 2017-03-26 13:22 | P.PN ---
Progress Note - Text 81-year-old female status post incision and drainage of an abscess. . There is no nausea or vomiting. His been no fevers. Onexamination she is afebrile vital signs are stable. There's no jaundice or icterus. She is breathing without using accessory muscles of respiration. Heart rate is regular. She's not pale. Her skin is warm to touch. She has 2+ edema in bilateral lower extremities. There is no cyanosis. There's no jaundice. His no icterus. Abdomen is soft. The incision itself was inspected and a Jolene drains are in place there is no purulent drainage no obvious necrotic material there is significant amount of induration along the length of the incision. No drainage or fluctuation. Assessment and plan : Venous duplex ultrasound was done and revealed that there was no DVT. The wound itself is healing well. [place] which is to be held for getting a PICC line for tomorrow morning. She may be discharged within the next [address] Starks will be reassuming care tomorrow morning
--- NOTE | 2017-03-26 17:41 | P.PN ---
Progress Note - Text DATE OF SERVICE: 03/26/2017 PRESENTING COMPLAINT: , buttock abscess INTERVAL HISTORY: This is a patient who was transferred from [facility] with treatment for buttock abscess. Growing MRSA and is on daptomycin. Today, patient is sitting up in a chair, looks comfortable, appears better. Tolerating her diet, ambulatory with some assistance and a walker. Had BM today. REVIEW OF SYSTEMS: Done for constitutional ,cardiovascular, GI, ,pulmonary with relevant findings as above. CURRENT MEDICATIONS [place], daptomycin, ertapenem, Diflucan, valacyclovir, Protonix, nystatin. PHYSICAL EXAM: VITAL SIGNS: Temperature 96.4, pulse 81, respiratory rate 16, blood pressure 108 /51, oxygen saturation 94% on room air. GENERAL APPEARANCE: Sitting in a chair, comfortable. EYES: Pupils equal. Conjunctiva normal. NECK: JVD not raised. Mass not palpable. RESPIRATORY: Respiratory effort normal. Lungs clear to auscultation. CARDIOVASCULAR: First and second sounds normal. No edema. ABDOMEN: Soft. Liver and spleen not palpable. No tenderness. No mass palpable. PSYCHIATRY: Alert and oriented x3. Mood and affect normal. GENITOURINARY: Perineum with 2 [place] drains packing to the incisional area. INVESTIGATIONS: Hemoglobin 10.7 ASSESSMENT: 1. Left buttock abscess, status post being taken to the OR 2. Cultures growing methicillin-resistant Staphylococcus aureus. 2. Acute herpes zoster slowly improving. 3. Persistent atrial fibrillation, new diagnosis, on eliquis currently held for PICC line Monday. 4. Primary osteoarthritis of multiple joints, including hands and knees. 5. Essential hypertension. 6. Hypothyroidism. 7. Gastroesophageal reflux disease in a patient with a hiatal hernia. 8. ALLERGIC reaction to VANCOMYCIN 9. Moderate mitral and tricuspid regurgitation, nonrheumatic. PLAN: Eliquis currently held for PICC placement on Monday. Antibiotics to continue, Valtrex for herpes zoster. Daughters at the bedside plan of care discussed with patient and family. We'll continue to monitor closely. SMALL ANIMAL CARETAKER statement: Patient was seen and examined by nurse practitioner Carmen Morin in all elements of the case discussed with attending is Dr. Portillo
[2017-03-26] MEDS: ERTAPENEM 1 GM in SODIUM CHLORIDE 0.9% 50 ML IVPB SCH (18:19)
[2017-03-27 00:29] VITALS: RESP 16; TEMP 97.6
[2017-03-27] MEDS: HYDROcodone/APAP 7.5-325MG 1 EACH TAB PO PRN ×4 (01:04→16:01)
[2017-03-27] MEDS: LEVOTHYROXINE 50 MCG TAB PO SCH (06:30)
[2017-03-27 08:02] VITALS: BP 96/60; PULSE 98
[2017-03-27] MEDS ORDERED: LIDOCAINE 2% INJ 20 MG/ML (20 ML MDV) ONE (09:11)
[2017-03-27] MEDS ORDERED: LIDOCAINE 2% INJ 20 MG/ML SQ ONE (09:25)
[2017-03-27] MEDS: PANTOPRAZOLE 40 MG TABLET PO SCH (10:05)
[2017-03-27] MEDS: FLUCONAZOLE 150 MG TAB PO SCH (10:06)
[2017-03-27] MEDS: DOCUSATE 100 MG CAP PO SCH (10:06)
[2017-03-27] MEDS: METOPROLOL TARTRATE 12.5 MG TAB PO SCH (10:06)
[2017-03-27] MEDS: diphenhydrAMINE 2% CREAM 28.4 GM TUBE TOPICAL SCH (10:06)
[2017-03-27] MEDS: NYSTATIN 100,000 UNIT/ML SUSP 500,000 UNIT/5 ML CUP PO SCH ×2 (10:08→13:30)
[2017-03-27] MEDS: POLYETHYLENE GLYCOL 3350 17 GM POWD.PACK PO SCH (10:09)
[2017-03-27] MEDS: valACYclovir HCL 1,000 MG TABLET PO SCH (10:09)
[2017-03-27] MEDS ORDERED: APIXABAN 5 MG TAB PO SCH (10:30)
--- NOTE | 2017-03-27 10:53 | PN ---
DATE OF SERVICE: 03/26/2017 ATTENDING NOTE: This patient was seen and examined by me today. I reviewed the note of my nurse practitioner Ms. Morin. Patient was admitted with ( ) growing MRSA. Awaiting a PICC line tomorrow. Comfortable. Tolerating a diet. On exam, LUNGS: Clear entry. CARDIOVASCULAR: First and second sounds normal. PSYCH: Awake, sitting up. INVESTIGATIONS: White count 4.4. ASSESSMENT: 1. Left buttock abscess, status post incision and drainage growing Methicillin-resistant Staph aureus. 2. Persistent atrial fibrillation. PLAN: Continue current medication and treatment. The patient will have a PICC line tomorrow and then start her on Eliquis.
--- NOTE | 2017-03-27 11:44 | IR ---
EXAMINATION TYPE: IR cvc insert >=5 years DATE OF EXAM: 03/27/2017 COMPARISON: NONE CLINICAL HISTORY: Infection Needs long-term intravenous access for antibiotics. PROCEDURE: After informed consent, the skin overlying the upper extremity vein was localized with ultrasound and noted to be compressible and patent. An ultrasound image was obtained and submitted on the patient' s chart. The overlying skin was prepped and draped and Lidocaine was used for local anesthesia. A s kin armin was made with a scalpel. Access was gained to the vein under ultrasound guidance with a 21 gauge needle and a 0.018 inch wire was advanced. Access site was dilated with Peel-Away sheath and c atheter tailored to the appropriate length and advanced such that the distal tip is at the cavoatrial junction. Spot image was obtained verifying placement. Catheter was fixed to the skin with suture and a sterile dressing was placed following hemostasis. Catheter was aspirated and flushed with sali ne. Patient was discharged in stable condition without complication. Maximal barrier technique is ut ilized. Ultrasound image is documented on the chart. Ultrasound used with sterile technique. Fluoro time and fluoroscopic images submitted to document procedure: 59 intraoperative C-arm images, 0.1 minutes fluoroscopy time IMPRESSION: STATUS POST ULTRASOUND AND FLUOROSCOPIC GUIDED PICC LINE PLACEMENT, READY FOR USE. THIS PROCEDURE WAS PERFORMED BY THE UNDERSIGNED.
[2017-03-27] MEDS ORDERED: LINEZOLID 600 MG in DEXTROSE/WATER 1 300ML.BAG IVPB SCH (12:15)
[2017-03-27] MEDS: MULTIVITAMINS, THERA 1 EACH TAB PO SCH (13:30)
--- NOTE | 2017-03-27 14:28 | P.PN ---
Progress Note - Text Jolene drain discontinued at bedside. Wound reevaluated with decreased erythema along the left labia. Left buttock still with edema. Minimal fibrinous exudate along wound. Patient tolerated removal of Jolene drain well. Recommend follow-up with Dr. Sanford for antibiotic management and wound care recommendations.
--- NOTE | 2017-03-27 14:36 | P.DS ---
Providers Date of admission: 03/21/17 16:21 Expected date of discharge: 03/27/17 Attending physician: Kylee George Consults: 03/21/17 17:05 Consult Physician Routine Consulting Provider: Kylee George Consult Reason/Comments: your pt from [facility] Do you want consulting provider notified?: Yes 03/22/17 10:47 Consult Physician Urgent Consulting Provider: Kevin Sanford Consult Reason/Comments: Wound care IV antibiotics Do you want consulting provider notified?: Yes 03/23/17 14:36 Consult Physician Urgent Consulting Provider: Selvin Portillo Consult Reason/Comments: medical mgm Do you want consulting provider notified?: Yes 03/24/17 11:05 Consult Physician Routine Consulting Provider: Kenan Eagle Consult Reason/Comments: AF Do you want consulting provider notified?: Yes Primary care physician: Stated None Hospital Course: An 81-year-old female who was transferred from [facility] to [facility] on March 21 for further treatment requiring a higher level of wound care in a patient who has a complex perineal abscess status post incision and drainage of the abscess patient reportedly went to [facility] initially when she was experiencing fever and chills was going down her legs with generalized weakness with lack of appetite. During her hospitalization at the other facility patient was started on IV antibiotic Unasyn and vancomycin. Patient went to the OR at [facility] for incision and drainage on 2 occasions March 15 and [address] George. With [place] drains 2 placed in the left labia Additionally patient did have 2 CAT scans done and the report on March 21 showed inflammatory changes in the peritoneum on the left with subcutaneous air and density consistent with a small abscess. Patient was followed this admission with medicine service and infectious disease patient was evaluated for subacute rehab given the complicated peritoneal and pelvic wound. Patient elected to be transferred when medically stable. The dressing changes at the time of discharge were Aquacell ag rope with 4 inch packing followed by 4 x 4 and ABD 3 times a day. The Jolene drain was removed prior to discharge Patient did have a PICC line placed on the day of discharge. Patient was to have IV antibiotics for 14 days per infectious diseases recommendations patient was discharged on Invanz 1 g IV piggyback every 24 hours for 2 weeks then Zyvox 600 mg IV piggyback every 12 hours for 1 week Impression discharge diagnosis Present on admission Cellulitis of buttock, left Status: Acute present on admission left genital labial abscess Status: Acute MRSA (methicillin resistant staph aureus) culture positive Status: Acute Hypertension Status: Acute Debility Status: Acute Hypothyroidism Status: Acute Bilateral pleural effusion Status: Acute UTI (urinary tract infection) Status: Acute Yeast infection involving the vagina and surrounding area Status: Acute present on admission left buttock abscess status post incision and drainage with Jolene drains placed in the left labia Paroxysmal atrial fibrillation suspect new diagnosis current rate controlled isolated episode of rapid ventricular response started on elquis essential hypertension Present on admission suspect acute herpes zoster buttocks area The above dictated assessment and findings were discussed with dr george . Impression and the plan of care have been dictated as directed. Verónica Zamudio nurse practitioner acting as a scribe for Dr. George Plan - Discharge Summary New Discharge Prescriptions: New Artificial Tears-Hypromellose [Artificial Tear Drops] 2 drops BOTH EYES QID PRN bottle PRN Reason: Dry Eye(S) diphenhydrAMINE & Zinc Cream [Benadryl Cream] 1 applic TOPICAL BID dose Multivitamins, Thera [Multivitamin (formulary)] 1 each PO DAILY@1200 tab Polyethylene Glycol 3350 [Miralax] 17 gm PO DAILY pack Apixaban [Eliquis] 5 mg PO BID #1 tab Ipratropium-Albuterol Nebulize [Duoneb 0.5 mg-3 mg/3 ml Soln] 3 ml INHALATION RT-TID PRN neb PRN Reason: Shortness Of Breath Or Wheezing Metoprolol Tartrate [Lopressor] 12.5 mg PO BID tab Ertapenem [INVanz] 1 gm IVPB Q24H #14 vial Linezolid [Zyvox] 600 mg IVPB Q12HR #28 bag Fluconazole [Diflucan] 150 mg PO DAILY #7 tab Nystatin 100,000 Unit/ml Susp [Mycostatin Oral Susp] 500,000 unit PO QID # 600 dose valACYclovir HCL [Valtrex] 1,000 mg PO BID #14 tab HYDROcodone/APAP 7.5-325MG [Kenvil 7.5-325] 1 each PO Q4H PRN #30 tab PRN Reason: Moderate Pain Linezolid [Zyvox IV] 600 mg IVPB Q12HR bag Apixaban [Eliquis] 5 mg PO BID #60 tab Continue Meloxicam [Mobic] 7.5 mg PO DAILY Levothyroxine Sodium [Synthroid] 50 mcg PO DAILY L.acidoph,Paracasei, B.lactis [Probiotic] 1 cap PO DAILY Discontinued Hydrochlorothiazide 25 mg PO DAILY Discharge Medication List L.acidoph,Paracasei, B.lactis [Probiotic] 1 cap PO DAILY 03/21/17 [History] Levothyroxine Sodium [Synthroid] 50 mcg PO DAILY 03/21/17 [History] Meloxicam [Mobic] 7.5 mg PO DAILY 03/21/17 [History] Apixaban [Eliquis] 5 mg PO BID #1 tab 03/27/17 [Rx] Apixaban [Eliquis] 5 mg PO BID #60 tab 03/27/17 [Rx] Artificial Tears-Hypromellose [Artificial Tear Drops] 2 drops BOTH EYES QID PRN bottle 03/27/17 [Rx] Ertapenem [INVanz] 1 gm IVPB Q24H #14 vial 03/27/17 [Rx] Fluconazole [Diflucan] 150 mg PO DAILY #7 tab 03/27/17 [Rx] HYDROcodone/APAP 7.5-325MG [[place] 7.5-325] 1 each PO Q4H PRN #30 tab 03/27/17 [ Rx] Ipratropium-Albuterol Nebulize [Duoneb 0.5 mg-3 mg/3 ml Soln] 3 ml INHALATION RT -TID PRN neb 03/27/17 [Rx] Linezolid [Zyvox IV] 600 mg IVPB Q12HR bag 03/27/17 [Rx] Linezolid [Zyvox] 600 mg IVPB Q12HR #28 bag 03/27/17 [Rx] Metoprolol Tartrate [Lopressor] 12.5 mg PO BID tab 03/27/17 [Rx] Multivitamins, Thera [Multivitamin (formulary)] 1 each PO DAILY@1200 tab [Rx] Nystatin 100,000 Unit/ml Susp [Mycostatin Oral Susp] 500,000 unit PO QID #600 dose 03/27/17 [Rx] Polyethylene Glycol 3350 [Miralax] 17 gm PO DAILY pack 03/27/17 [Rx] diphenhydrAMINE & Zinc Cream [Benadryl Cream] 1 applic TOPICAL BID dose [Rx] valACYclovir HCL [Valtrex] 1,000 mg PO BID #14 tab 03/27/17 [Rx] Follow up Appointment(s)/Referral(s): Nate Marino MD [STAFF PHYSICIAN] - 2 Weeks Kevin Sanford MD [STAFF PHYSICIAN] - 1 Week (in Wound Center) Kylee George MD [STAFF PHYSICIAN] - 1 Week Ambulatory/Diagnostic Orders: Complete Blood Count w/diff [LAB.AMB] Location: Determined By Patient Comprehensive Metabolic Panel [LAB.AMB] Location: Determined By Patient Patient Instructions/Handouts: MRSA (Methicillin Resistant Staphylococcus Aureus) (DC), Acute Wound Care (DC) Discharge Disposition: TRANSFER TO SNF/ECF
--- NOTE | 2017-03-27 17:21 | PN ---
DATE OF SERVICE: 03/27/2017 PRESENTING COMPLAINT: Buttock abscess. INTERVAL HISTORY: This is a patient who was transferred from [facility]; had a buttock abscess, drained x2, growing MRSA. Doing better. Both daughters at the bedside. Tolerating a diet. Had a bowel movement. Looking to go to rehab today. PICC line being placed. Review of systems done for constitutional, cardiovascular, GI, pulmonary, musculoskeletal; relevant findings as above. Current medications are reviewed that include Eliquis and IV Ertapenem. On examination, temperature 97.6, pulse 98, respiration 16, blood pressure 96/60, pulse ox 98% on room air. GENERAL APPEARANCE: Sitting up on bed. Comfortable. EYES: Pupils equal. Conjunctivae normal. NECK: JVD not raised. Mass not palpable. RESPIRATORY: Effort normal. Lungs are clear. CARDIOVASCULAR: First and second sounds normal. No edema. ABDOMEN: Soft, nontender. Liver and spleen not palpable. PSYCHIATRY: Alert and oriented x3. Mood and affect normal. INVESTIGATIONS: No blood work from today. ASSESSMENT: 1. Left buttock abscess, status post incision and drainage x2; cultures growing methicillin-resistant Staphylococcus aureus. 2. Acute herpes zoster infection. 3. Persistent atrial fibrillation; new diagnosis. On Eliquis, now to resumed since patient received a PICC line. 4. PICC line placed today. 5. Primary osteoarthritis of multiple joints, including hands and knees. 6. Essential hypertension. 7. Hypothyroidism. 8. Gastroesophageal reflux disease in a patient with hiatal hernia. 9. ALLERGIC REACTION TO VANCOMYCIN. 10. Moderate mitral and tricuspid regurgitation, non-rheumatic. PLAN: Care was discussed with family at the bedside. Patient will resume Eliquis. Patient is going to the ECF today. Patient will follow up with Dr. Joseph Marino as an outpatient. Care was discussed. Questions were answered. Thank you, Dr. Starks.
--- NOTE | 2017-03-27 20:02 | P.PN ---
Subjective Principal diagnosis: Labia abscess with MRSA This is an 81-year-old female who gives history that she has had problems since October in the perineal area and was initially seen by Dr. Friend and Cora BACH at Dr. Friend's office. She states she was placed on ointment and an antibiotic and then was sent to Dr. Edward and also Dr. Salazar. She states she has had 3 urinary tract infections since October and thinks that abscess to the perineal area has been ongoing since October. She also has had problems with vaginal yeast infections. Patient states she went to [facility] due to fevers and pain was going down her legs and she couldn't move with generalized malaise and lack of appetite. She was found to have leukocytosis at 17, thrombocytopenia with a platelet count of 123 and was admitted to the hospital. She was seen by Dr. Vargas from infectious disease. She was on Unasyn and vancomycin and also during her stay at [facility] she had some doses of clindamycin and Zyvox which may have been started on March 20. Patient went to the OR for I&D on 2 occasions, March 15 and March [address] Starks. She had 2 CAT scans done and the repeat done on March 21 revealed inflammatory change in the perineum on the left side with subcutaneous air and density consistent with small abscess. New presacral fluid. Perineal inflammation to worry changes are significantly increased from last CAT scan. She had a urinalysis that showed nitrate negative. Leukocytes 3+, blood 1+. Apparently wound culture was positive for MRSA. She was transferred to [facility] for further treatment and is currently on clindamycin and daptomycin. She is on Diflucan for oral thrush which she states is much improved. She also states that her appetite has improved. Patient feels better today. Still discontinued because amount of pain and discomfort she is having but is being well treated. Air mattress overlay to the bed was very comforting. She is no other acute complaints. Looks forward to improving over time. seat cushion also so when she is up in the chair she has less discomfort. Now showing improvement. Gould drains are removed. Tolerating antibiotic therapy well. We'll go to rehab today. Objective - Vital Signs Vital signs: Vital Signs Temp 97.6 F 03/27/17 07:00 Pulse 98 03/27/17 07:00 Resp 16 03/27/17 07:00 BP 96/60 03/27/17 07:00 Pulse Ox 98 03/27/17 07:00 Intake & Output 03/27/17 03/27/17 03/28/17 06:59 18:59 06:59 Intake Total 400 300 Balance 400 300 Intake: Intake, IV Titration 100 Amount DAPTOmycin 400 mg In 100 Sodium Chloride 0.9% 50 ml @ 100 mls/hr IV Q24HR BLANCA Rx#:[id number] Oral 400 200 Other: # Voids 1 - Exam Gen: This is an 81-year-old female. She is sitting up in a chair and eating lunch and appears to be in no acute distress. HEENT: Head is atraumatic, normocephalic. Pupils equal, round. Sclerae is anicteric. Conjunctiva pink. Mucous members of the mouth are moist. No thrush noted. NECK: Supple. No JVD. No lymphadenopathy. No thyromegaly. LUNGS: Diminished in the bases but otherwise clear to auscultation. No wheezes or rhonchi. No intercostal retractions. HEART: Regular rate and rhythm. No murmur. ABDOMEN: Soft. Bowel sounds are present. No masses. No tenderness. Patient has been evaluated by the surgeon and the Jolene drains are removed with improvement of the abscess and the surgical ulcer EXTREMITIES: No pedal edema. No calf tenderness. Dorsalis pedis weak bilaterally. NEUROLOGICAL: Patient is awake, alert and oriented x3 Skin the area of blisters on the midpoint of the back just above the buttocks fold reportedly improved. - Labs CBC & Chem 7: 03/26/17 07:48 03/26/17 07:48 Labs: Laboratory Results WBC 4.4 k/uL (3.8-10.6) 03/26/17 07:48 RBC 3.46 m/uL (3.80-5.40) L 03/26/17 07:48 Hgb 10.7 gm/dL (11.4-16.0) L 03/26/17 07:48 Hct 33.8 % (34.0-46.0) L 03/26/17 07:48 MCV 97.7 fL (80.0-100.0) 03/26/17 07:48 MCH 31.0 pg (25.0-35.0) 03/26/17 07:48 MCHC 31.7 g/dL (31.0-37.0) 03/26/17 07:48 RDW 14.1 % (11.5-15.5) 03/26/17 07:48 Plt Count 310 k/uL (150-450) 03/26/17 07:48 Neutrophils % 61 % 03/26/17 07:48 Lymphocytes % 27 % 03/26/17 07:48 Monocytes % 7 % 03/26/17 07:48 Eosinophils % 2 % 03/26/17 07:48 Basophils % 1 % 03/26/17 07:48 Neutrophils # 2.6 k/uL (1.3-7.7) 03/26/17 07:48 Lymphocytes # 1.2 k/uL (1.0-4.8) 03/26/17 07:48 Monocytes # 0.3 k/uL (0-1.0) 03/26/17 07:48 Eosinophils # 0.1 k/uL (0-0.7) 03/26/17 07:48 Basophils # 0.0 k/uL (0-0.2) 03/26/17 07:48 ESR 25 mm/hr (0-20) H 03/22/17 07:40 Sodium 139 mmol/L (137-145) 03/26/17 07:48 Potassium 4.4 mmol/L (3.5-5.1) 03/26/17 07:48 Chloride 106 mmol/L (98-107) 03/26/17 07:48 Carbon Dioxide 28 mmol/L (22-30) 03/26/17 07:48 Anion Gap 5 mmol/L 03/26/17 07:48 BUN 7 mg/dL (7-17) 03/26/17 07:48 Creatinine 0.72 mg/dL (0.52-1.04) 03/26/17 07:48 Est GFR (MDRD) Af Amer >60 (>60 ml/min/1.73 sqM) 03/26/17 07:48 Est GFR (MDRD) Non-Af >60 (>60 ml/min/1.73 sqM) 03/26/17 07:48 Glucose 90 mg/dL (74-99) 03/26/17 07:[address] Glu mg/dL 114 mg/dL 03/22/17 09:45 Hemoglobin A1c 5.6 % (4.2-6.1) 03/22/17 09:45 Calcium 8.5 mg/dL (8.4-10.2) 03/26/17 07:48 Prealbumin 11 mg/dL (18-36) L 03/22/17 09:45 TSH 1.520 mIU/L (0.465-4.680) 03/22/17 09:45 Assessment and Plan (1) Left genital labial abscess Narrative/Plan: Patient does have a history of the sudden onset of the significant infection. The Vanco RAIN is 2. Consequently vancomycin likely has failed will be utilized for daptomycin therapy for now. The data from the other hospital also reveals evidence of gram-negative bacilli seen at the original Gram stain and culture and consequently will add in ertapenem at this time for treatment of aerobic and anaerobic gram-negative organisms. Local wound care is being done with the Aquacel silver and absorptive pads which is adequate. Air mattress overlay as been placed and improved her comfort. Patient is evidence of a painful set of blisters in the very proximal aspect of the buttocks. Likely shingles. Valtrex was started. Showing minimal improvement continue covering with the DuoDERM. When sure she is getting adequate protein intake, and multivitamin. IV access the PICC line has been performed to complete the next 2 weeks of her intravenous antibiotic therapy. Will follow with us in the wound healing center weekly. Continue to try to maximize her comfort We'll have more comfort of the drains are removed. Local wound care with the silver alginate dressing repacked into the area. Status: Acute (2) MRSA (methicillin resistant staph aureus) culture positive Status: Acute
== END 2017-03-27 16:12 | DRG 603 ==
LOC: 4MS4W 16:21
PROVIDERS: ADMIT Surgery Plastic and Reconstructive Surgery; ATTEND Surgery Plastic and Reconstructive Surgery
PROC: 02HV33Z Insertion of Infusion Device into Superior Vena Cava, Percutaneous Approach (ICD-10-PCS; principal; 2017-03-27 09:00)
DX: L03.317 Cellulitis of buttock (principal); J90 Pleural effusion, not elsewhere classified; B37.0 Candidal stomatitis; I48.1 Persistent atrial fibrillation; I48.0 Paroxysmal atrial fibrillation; B02.9 Zoster without complications; I36.1 Nonrheumatic tricuspid (valve) insufficiency; N39.0 Urinary tract infection, site not specified; B37.3 Candidiasis of vulva and vagina; N76.4 Abscess of vulva; L02.215 Cutaneous abscess of perineum; E03.9 Hypothyroidism, unspecified; L02.31 Cutaneous abscess of buttock; J44.9 Chronic obstructive pulmonary disease, unspecified; T36.8X5A Adverse effect of other systemic antibiotics, initial encounter; I10 Essential (primary) hypertension; B95.62 Methicillin resistant Staphylococcus aureus infection as the cause of diseases classified elsewhere; K21.9 Gastro-esophageal reflux disease without esophagitis; I34.0 Nonrheumatic mitral (valve) insufficiency; M19.042 Primary osteoarthritis, left hand; M19.041 Primary osteoarthritis, right hand; K12.0 Recurrent oral aphthae; L27.0 Generalized skin eruption due to drugs and medicaments taken internally; N60.19 Diffuse cystic mastopathy of unspecified breast; M17.0 Bilateral primary osteoarthritis of knee; K44.9 Diaphragmatic hernia without obstruction or gangrene; R53.1 Weakness; R60.0 Localized edema; Z79.1 Long term (current) use of non-steroidal anti-inflammatories (NSAID); Z86.79 Personal history of other diseases of the circulatory system; Z88.5 Allergy status to narcotic agent; Z88.2 Allergy status to sulfonamides; Z86.14 Personal history of Methicillin resistant Staphylococcus aureus infection; Z86.19 Personal history of other infectious and parasitic diseases; Z91.041 Radiographic dye allergy status; Z16.24 Resistance to multiple antibiotics; Z87.440 Personal history of urinary (tract) infections; Z79.899 Other long term (current) drug therapy; Z77.22 Contact with and (suspected) exposure to environmental tobacco smoke (acute) (chronic); Z85.828 Personal history of other malignant neoplasm of skin; Z96.1 Presence of intraocular lens; Z98.890 Other specified postprocedural states; Z90.49 Acquired absence of other specified parts of digestive tract; Z98.42 Cataract extraction status, left eye; Z98.41 Cataract extraction status, right eye; Z96.0 Presence of urogenital implants; Z79.2 Long term (current) use of antibiotics
CPT/HCPCS: 36569; 71020; 76937; 77001; 80048; 83036; 84134; 84443; 85025; 85652; 93306; 93970

== ENCOUNTER → 2017-04-20 | Outpatient (CLI) | payer MEDICARE, OTHER ==
[2017-04-20 11:34] LABS: Anion Gap 12 mmol/L; Blood Urea Nitrogen 13 mg/dL (7-17); Calcium 9.5 mg/dL (8.4-10.2); Carbon Dioxide 23 mmol/L (22-30); Chloride 103 mmol/L (98-107); Glucose 98 mg/dL (74-99); Non-African American GFR(MDRD) >60 (>60 ml/min/1.73 sqM); Sodium 138 mmol/L (137-145)
[2017-04-20 11:39] LABS: Potassium 4.7 mmol/L (3.5-5.1)
== END | disposition home or self-care (01) ==
LOC: LABWHC1 10:59
PROVIDERS: ATTEND Internal Medicine Interventional Cardiology
DX: I48.91 Unspecified atrial fibrillation (principal); I49.3 Ventricular premature depolarization
CPT/HCPCS: 36415; 80048; 83735

== ENCOUNTER → 2017-05-11 | Outpatient (CLI) | payer MEDICARE, OTHER ==
--- NOTE | 2017-05-11 18:14 | US ---
EXAMINATION TYPE: US thyroid st tissue head/neck DATE OF EXAM: 05/11/2017 COMPARISON: NONE CLINICAL HISTORY: Difficulty swallowing R13.10. GLAND SIZE: Right Lobe: 2.6 x 1.3 x 1.1 cm Overall Parenchyma: homogenous Left Lobe: 2.2 x 1.4 x 0.7 cm Overall Parenchyma: homogeneous Isthmus Thickness: 0.4 cm NODULES RIGHT: # of nodules measured on right: 0 LEFT: # of nodules measured on left: 0 ISTHMUS: # of nodules measured in the isthmus: 0 Bilateral neck scanned, no evidence of lymphadenopathy. Thyroid measures small, situated low in neck. IMPRESSION: SMALL BUT OTHERWISE NORMAL THYROID ULTRASOUND.
== END ==
LOC: RADUSWWP 16:09
PROVIDERS: ATTEND Surgery Plastic and Reconstructive Surgery
DX: R13.10 Dysphagia, unspecified (principal)
CPT/HCPCS: 36415; 76536; 84439; 84443

== ENCOUNTER 2017-05-17 10:45 | Day surgery (SDC) | payer MEDICARE, OTHER ==
[2017-05-16 13:08] VITALS: BMI 25.2
[~2017-05-17 10:45] MED LIST: LACTATED RINGERS 1,000 ML IV SCH; LIDOCAINE 1% 20 ML VIAL (10MG/ML) FOR IV START INTRADERMA PRN
--- NOTE | 2017-05-17 11:01 | P.GSHP ---
History of Present Illness H&P Date: 05/17/17 CHIEF COMPLAINT: GERD HISTORY OF PRESENT ILLNESS: The patient is a 81-year-old female who presents reports gastroesophageal reflux disease. Upper endoscopy was offered for further evaluation and management. PAST MEDICAL HISTORY: Please see list. PAST SURGICAL HISTORY: Please see list. MEDICATIONS: Please see list. ALLERGIES: Please see list. SOCIAL HISTORY: No illicit drug use FAMILY HISTORY: No reports of Crohn disease or ulcerative colitis. REVIEW OF ORGAN SYSTEMS: CONSTITUTIONAL: No reports of fevers or chills. GI: Denies any blood in stools or constipation. PHYSICAL EXAM: VITAL SIGNS: Stable GENERAL: Well-developed and pleasant in no acute distress. HEENT: No scleral icterus. Extraocular movements grossly intact. Moist buccal mucosa. NECK: Supple without lymphadenopathy. CHEST: Unlabored respirations. Equal bilateral excursions. CARDIOVASCULAR: Irregular rate and rhythm. Distal 2+ pulses. ABDOMEN: Soft, nondistended. MUSCULOSKELETAL: No clubbing, cyanosis, or edema. ASSESSMENT: 1. Gastroesophageal reflux disease PLAN: 1. 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,UTIs History of Any Multi-Drug Resistant Organisms: MRSA Date of last positivie culture/infection: 03/21/2017 MDRO Source:: left buttock/left labia Past Surgical History: Appendectomy, Tonsillectomy Additional Past Surgical History / Comment(s): Varicose vein stripping, bilateral cataract removal and intraocular lens implants, skin biopsies and skin cancer removal, breast lumpectomy, I&D 03/15/17 and 03/21/17 of left buttock and left labia Past Anesthesia/Blood Transfusion Reactions: Family History of Problems w/ Anesthesia, Postoperative Nausea & Vomiting (PONV) Additional Past Anesthesia/Blood Transfusion Reaction / Comment(s): family hx of n/v with anesthesia.No hx blood transfusion Smoking Status: Never smoker - Past Family History Mother Family Medical History: AICD/Pacemaker, CVA/TIA, Thyroid Disorder Father Family Medical History: Cancer, COPD, GI Bleed Sister(s) Family Medical History: Cancer Additional Family Medical History / Comment(s): breast Daughter(s) Family Medical History: Cancer Additional Family Medical History / Comment(s): thyroid. granddtr-thyroid ca Medications and Allergies Home Medications Medication Instructions Recorded Confirmed Type Levothyroxine Sodium [Synthroid] 50 mcg PO QAM 03/21/17 05/16/17 History Amiodarone [Cordarone] 200 mg PO QAM 04/25/17 05/16/17 History Multivitamins, Thera [Multivitamin 1 tab PO DAILY 05/16/17 05/16/17 History (formulary)] Allergies Allergy/AdvReac Type Severity Reaction Status Date / Time iodine Allergy Unknown Unknown Verified 05/16/17 14:55 morphine Allergy Unknown Unknown Verified 05/16/17 14:55 codeine Allergy Unknown Verified 05/16/17 14:55 latex Allergy Unknown Verified 05/16/17 14:55 Sulfa (Sulfonamide Allergy Unknown Verified 05/16/17 14:55 Antibiotics) aloe AdvReac Unknown Verified 05/16/17 14:55
[2017-05-17 11:25] VITALS: RESP 16; TEMP 98
[2017-05-17] MEDS ORDERED: LIDOCAINE 1% INJ 10MG/ML (20 ML MDV) ONE (11:57)
[2017-05-17] MEDS ORDERED: PROPOFOL 10 MG/ML 20 ML VIAL IV ONE (11:57)
--- NOTE | 2017-05-17 12:16 | P.PCN ---
Date of Procedure: 05/17/17 Preoperative Diagnosis: Postoperative Diagnosis: Procedure(s) Performed: Implants: Indications for Procedure: Operative Findings: Description of Procedure: PREOPERATIVE DIAGNOSIS: Gastroesophageal reflux disease. POSTOPERATIVE DIAGNOSIS: Gastroesophageal reflux disease. Diaphragmatic hiatal hernia without obstruction. OPERATION: Esophagogastroduodenoscopy. SURGEON: Kylee Starks MD ANESTHESIA: MAC. INDICATIONS: The patient is a 81-year-old female who presents with a history of reflux disease. Benefits and risks of the procedure were described. Informed consent was obtained. DESCRIPTION: The patient was brought into the endoscopy suite and laid in the left lateral decubitus position. An Olympus gastroscope was passed along the posterior oropharynx down to the distal esophagus where the squamocolumnar junction was encountered at 35 cm from the incisors. The stomach was entered and no bile reflux was found. Additional findings are listed below. Biopsies with cold forceps were obtained of the antrum. The first through third portion of the duodenum was examined and unremarkable. Retroflexion of the scope confirmed Hill grade 4 lower esophageal valve. The squamocolumnar junction early LA grade A erosive esophagitis. The stomach was desufflated. The patient tolerated the procedure well. FINDINGS: Squamocolumnar junction 36 cm from the incisors. Diaphragmatic hiatus at 40 cm. Hiatal hernia 4 cm. Hill grade 4 lower esophageal valve. Early LA grade A erosive esophagitis. No active duodenitis. No gastritis. RECOMMENDATIONS: Continue medical therapy. Further recommendations pending results of pathology report. Upper endoscopy as needed. Will benefit from antireflux surgical procedure Plan - Discharge Summary New Discharge Prescriptions: No Action Levothyroxine Sodium [Synthroid] 50 mcg PO QAM Apixaban [Eliquis] 5 mg PO BID #1 tab Metoprolol Tartrate [Lopressor] 12.5 mg PO BID tab Amiodarone [Cordarone] 200 mg PO QAM Multivitamins, Thera [Multivitamin (formulary)] 1 tab PO DAILY Discharge Medication List Levothyroxine Sodium [Synthroid] 50 mcg PO QAM 03/21/17 [History] Apixaban [Eliquis] 5 mg PO BID #1 tab 03/27/17 [Rx] Metoprolol Tartrate [Lopressor] 12.5 mg PO BID tab 03/27/17 [Rx] Amiodarone [Cordarone] 200 mg PO QAM 04/25/17 [History] Multivitamins, Thera [Multivitamin (formulary)] 1 tab PO DAILY 05/16/17 [History ]
[2017-05-17 12:57] VITALS: BP 118/67; PULSE 564
== END 2017-05-17 13:00 | disposition home or self-care (01) ==
LOC: ORWHC2ENDO 10:45
PROVIDERS: ATTEND Surgery Plastic and Reconstructive Surgery
DX: K21.0 Gastro-esophageal reflux disease with esophagitis (principal); K44.9 Diaphragmatic hernia without obstruction or gangrene; I48.91 Unspecified atrial fibrillation; J44.9 Chronic obstructive pulmonary disease, unspecified; I10 Essential (primary) hypertension; M19.90 Unspecified osteoarthritis, unspecified site; E07.9 Disorder of thyroid, unspecified; Z86.14 Personal history of Methicillin resistant Staphylococcus aureus infection; Z85.828 Personal history of other malignant neoplasm of skin; Z79.899 Other long term (current) drug therapy; Z91.040 Latex allergy status; Z88.5 Allergy status to narcotic agent; Z88.2 Allergy status to sulfonamides; Z91.09 Other allergy status, other than to drugs and biological substances
CPT/HCPCS: 43235; J2001; J2704

== ENCOUNTER 2017-05-26 12:33 | Emergency (ER) | payer MEDICARE, OTHER ==
[2017-05-26 12:46] VITALS: BP 174/82; RESP 63; TEMP 97
[2017-05-26] MEDS ORDERED: DIPH,PERTUS(ACELL)TETVAC-LF 0.5 ML VIAL IM ONE (12:53)
--- NOTE | 2017-05-26 12:59 | ED ---
General Adult HPI - General Chief complaint: Wound/Laceration Stated complaint: Fell/Head injury Time Seen by Provider: 05/26/17 12:36 Source: patient, family, EMS Mode of arrival: EMS Limitations: no limitations - History of Present Illness Initial comments: Patient is an 82-year-old female on L Kathy who presents to the ED for evaluation of laceration to her right eyebrow after a trip and fall. Patient states that she was walking when she believes she tripped over a cord falling forward and strike her face on the ground. Patient immediately felt pain above her right eyebrow and noted immediate bleeding. She applied direct pressure and was transferred to the hospital for further evaluation. She states the fall occurred approximately 20-25 minutes prior to arrival in the ED, she states she did not lose consciousness, she denies any neck pain, headache, nausea or vomiting. Family at bedside states the patient is in her normal state , they deny any confusion or repetitive questioning. Patient also states that she is experiencing pain in her right shoulder and left knee and is unsure if she hit it in the fall. Patient does state that immediately after the fall she is able to stand and ambulate but was advised to sit down and relax until she be transferred to hospital. Patient is unsure when her tetanus was last updated, she doesn't believe it was in the past 5 years. Patient states that prior to the fall she was doing very well in her usual state of health. She denies any preceding fevers, chills, nausea, vomiting, lightheadedness, palpitations. She believes the pulse completely mechanical in nature and not related to any weakness or syncope. -: minutes(s) Location: head - Related Data Home Medications Medication Instructions Recorded Confirmed Levothyroxine Sodium [Synthroid] 50 mcg PO QAM 03/21/17 05/26/17 Amiodarone [Cordarone] 200 mg PO QAM 04/25/17 05/26/17 Multivitamins, Thera [Multivitamin 1 tab PO DAILY 05/16/17 05/26/17 (formulary)] Previous Rx's Medication Instructions Recorded Apixaban [Eliquis] 5 mg PO BID #1 tab 03/27/17 Metoprolol Tartrate [Lopressor] 12.5 mg PO BID tab 03/27/17 Allergies Allergy/AdvReac Type Severity Reaction Status Date / Time iodine Allergy Unknown Unknown Verified 05/26/17 13:23 morphine Allergy Unknown Unknown Verified 05/26/17 13:23 codeine Allergy Unknown Verified 05/26/17 13:23 latex Allergy Unknown Verified 05/26/17 13:23 Sulfa (Sulfonamide Allergy Unknown Verified 05/26/17 13:23 Antibiotics) aloe AdvReac Unknown Verified 05/26/17 13:23 Review of Systems ROS Statement: Those systems with pertinent positive or pertinent negative responses have been documented in the HPI. ROS Other: All systems not noted in ROS Statement are negative. Constitutional: Denies: fever, chills Eyes: Denies: vision change ENT: Denies: hearing loss Respiratory: Denies: cough, dyspnea Cardiovascular: Denies: chest pain, palpitations Endocrine: Denies: fatigue Gastrointestinal: Denies: abdominal pain, nausea, vomiting Musculoskeletal: Denies: back pain Skin: Reports: change in color, other (laceration over right eyebrow) Neurological: Denies: headache, weakness, numbness, paresthesias, confusion, abnormal gait, vertigo Psychiatric: Denies: anxiety, depression Hematological/Lymphatic: Reports: easy bleeding, easy bruising 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,UTIs History of Any Multi-Drug Resistant Organisms: MRSA Date of last positivie culture/infection: 03/21/2017 MDRO Source:: left buttock/left labia Past Surgical History: Appendectomy, Tonsillectomy Additional Past Surgical History / Comment(s): Varicose vein stripping, bilateral cataract removal and intraocular lens implants, skin biopsies and skin cancer removal, breast lumpectomy, I&D 03/15/17 and 03/21/17 of left buttock and left labia Past Anesthesia/Blood Transfusion Reactions: Family History of Problems w/ Anesthesia, Postoperative Nausea & Vomiting (PONV) Additional Past Anesthesia/Blood Transfusion Reaction / Comment(s): family hx of n/v with anesthesia.No hx blood transfusion Past Psychological History: No Psychological Hx Reported Smoking Status: Never smoker Past Alcohol Use History: Rare Past Drug Use History: None Reported - Past Family History Mother Family Medical History: AICD/Pacemaker, CVA/TIA, Thyroid Disorder Father Family Medical History: Cancer, COPD, GI Bleed Sister(s) Family Medical History: Cancer Additional Family Medical History / Comment(s): breast Daughter(s) Family Medical History: Cancer Additional Family Medical History / Comment(s): thyroid. granddtr-thyroid ca General Exam Limitations: no limitations General appearance: alert, in no apparent distress Head exam: Present: other (laceration over right eyebrow) Eye exam: Present: normal appearance, PERRL, EOMI. Absent: scleral icterus, conjunctival injection, periorbital swelling ENT exam: Present: normal exam, mucous membranes moist, TM's normal bilaterally , normal external ear exam Neck exam: Present: normal inspection, full ROM. Absent: tenderness, meningismus, lymphadenopathy Respiratory exam: Present: normal lung sounds bilaterally Cardiovascular Exam: Present: regular rate GI/Abdominal exam: Present: soft, normal bowel sounds. Absent: distended, tenderness Course Vital Signs 05/26/17 12:37 Temperature 97.0 F L Respiratory 63 H Rate Blood Pressure 174/82 O2 Sat by Pulse 96 Oximetry Procedures - Laceration Laceration #1 Consent Obtained: verbal consent Time Out Performed: Yes Indication: laceration Site: face Size (cm): 4 Description: linear Depth: simple, single layer Anesthetic Used: lidocaine 2% Anesthesia Technique: local infiltration Pre-repair: wound explored, irrigated extensively, deep structures intact Type of Sutures: other Size of Sutures: 5-0 Number of Sutures: 8 Technique: simple, interrupted Patient Tolerated Procedure: well, no complications Medical Decision Making - Medical Decision Making Patient was seen and evaluated, history was obtained from the patient Physical exam reveals a laceration over the right forehead with significant ecchymosis, bleeding is controlled Labs and imaging were ordered Chest, pelvis, right shoulder and left knee x-rays reveal no acute injuries CT head with no acute intracranial pathology did note to have a hematoma in the right forehead consistent with where the laceration is CT cervical spine with no acute injury, patient with no midline cervical spine tenderness, full range of motion without pain, no signs of intoxication, no focal neurologic deficits, patient several spine is cleared Laceration was irrigated, cleansed with Betadine and repaired with 8 simple interrupted sutures Wound care was discussed with the patient and daughter bedside Patient and daughter state that she has a daughter living in the home with her right now who will be with her for the next 24-48 hours for constant supervision. Signs and symptoms that would indicate the patient is to return to the hospital including, headache, change in vision, change in mental status, confusion or any other signs of head injury were discussed with the patient and her daughter. They're advised, 911 should she develop any concerning signs or symptoms. Patient daughter bedside expressed understanding and agreement with plan for discharge home. I did discuss with them the patient's on anticoagulant medications like Eliquis do have a mildly increased risk of delayed bleeding and to watch for any signs or symptoms of this. - Lab Data Result diagrams: 05/26/17 13:16 05/26/17 13:16 Lab Results 05/26/17 05/26/17 05/26/17 Range/Units 13:16 13:16 13:16 WBC 5.2 (3.8-10.6) k/uL RBC 4.14 (3.80-5.40) m/uL Hgb 13.2 (11.4-16.0) gm/dL Hct 40.4 (34.0-46.0) % MCV 97.5 (80.0-100.0) fL MCH 31.9 (25.0-35.0) pg MCHC 32.7 (31.0-37.0) g/dL RDW 15.2 (11.5-15.5) % Plt Count 207 (150-450) k/uL Neutrophils % 62 % Lymphocytes % 28 % Monocytes % 6 % Eosinophils % 2 % Basophils % 0 % Neutrophils # 3.2 (1.3-7.7) k/uL Lymphocytes # 1.5 (1.0-4.8) k/uL Monocytes # 0.3 (0-1.0) k/uL Eosinophils # 0.1 (0-0.7) k/uL Basophils # 0.0 (0-0.2) k/uL PT (9.0-12.0) sec INR (<1.2) APTT (22.0-30.0) sec Sodium 139 (137-145) mmol/L Potassium 4.1 (3.5-5.1) mmol/L Chloride 104 (98-107) mmol/L Carbon Dioxide 26 (22-30) mmol/L Anion Gap 9 mmol/L BUN 13 (7-17) mg/dL Creatinine 0.81 (0.52-1.04) mg/dL Est GFR (MDRD) Af Amer >60 (>60 ml/min/1.73 sqM) Est GFR (MDRD) Non-Af >60 (>60 ml/min/1.73 sqM) Glucose 83 (74-99) mg/dL Calcium 9.4 (8.4-10.2) mg/dL Urine Color Urine Appearance (Clear) Urine pH (5.0-8.0) Ur Specific Blackey (1.001-1.035) Urine Protein (Negative) Urine Glucose (UA) (Negative) Urine Ketones (Negative) Urine Blood (Negative) Urine Nitrite (Negative) Urine Bilirubin (Negative) Urine Urobilinogen (<2.0) mg/dL Ur Leukocyte Esterase (Negative) Blood Type A Negative Blood Type Recheck CABO Indicated Antibody Screen NEGATIVE Spec Expiration Date 05/26/2017 - 1400 05/26/17 05/26/17 Range/Units 13:16 14:09 WBC (3.8-10.6) k/uL RBC (3.80-5.40) m/uL Hgb (11.4-16.0) gm/dL Hct (34.0-46.0) % MCV (80.0-100.0) fL MCH (25.0-35.0) pg MCHC (31.0-37.0) g/dL RDW (11.5-15.5) % Plt Count (150-450) k/uL Neutrophils % % Lymphocytes % % Monocytes % % Eosinophils % % Basophils % % Neutrophils # (1.3-7.7) k/uL Lymphocytes # (1.0-4.8) k/uL Monocytes # (0-1.0) k/uL Eosinophils # (0-0.7) k/uL Basophils # (0-0.2) k/uL PT 10.7 (9.0-12.0) sec INR 1.1 (<1.2) APTT 26.1 (22.0-30.0) sec Sodium (137-145) mmol/L Potassium (3.5-5.1) mmol/L Chloride (98-107) mmol/L Carbon Dioxide (22-30) mmol/L Anion Gap mmol/L BUN (7-17) mg/dL Creatinine (0.52-1.04) mg/dL Est GFR (MDRD) Af Amer (>60 ml/min/1.73 sqM) Est GFR (MDRD) Non-Af (>60 ml/min/1.73 sqM) Glucose (74-99) mg/dL Calcium (8.4-10.2) mg/dL Urine Color Colorless Urine Appearance Clear (Clear) Urine pH 7.0 (5.0-8.0) Ur Specific Blackey 1.004 (1.001-1.035) Urine Protein Negative (Negative) Urine Glucose (UA) Negative (Negative) Urine Ketones Negative (Negative) Urine Blood Negative (Negative) Urine Nitrite Negative (Negative) Urine Bilirubin Negative (Negative) Urine Urobilinogen <2.0 (<2.0) mg/dL Ur Leukocyte Esterase Negative (Negative) Blood Type Blood Type Recheck Antibody Screen Spec Expiration Date Disposition Clinical Impression: Laceration Disposition: HOME SELF-CARE Condition: Good Instructions: Care For Your Stitches (ED) Additional Instructions: Someone should remain with the patient for the next 24 hours. Should the patient develop any worsening headache, nausea, vomiting confusion or change in mental status 911 should be called when patient should be taken to the nearest emergency department for reevaluation Referrals: Amadou Friend MD [Primary Care Provider] - 1-2 days Time of Disposition: 15:35
[2017-05-26 13:29] LABS: Basophils % (A) 0 %; CH 32.4; CHCM 33.4; Eosinophils # (A) 0.1 k/uL (0-0.7); Eosinophils % (A) 2 %; HCT 40.4 % (34.0-46.0); HDW 2.49; HGB 13.2 gm/dL (11.4-16.0); Luc # (Auto) 0.13; Luc % (Auto) 3; Lymphocytes # (A) 1.5 k/uL (1.0-4.8); Lymphocytes % (A) 28 %; MCH 31.9 pg (25.0-35.0); MCHC 32.7 g/dL (31.0-37.0); MCV 97.5 fL (80.0-100.0); Mean Platelet Volume 8.4; Monocytes # (A) 0.3 k/uL (0-1.0); Monocytes % (A) 6 %; Neutrophils # (A) 3.2 k/uL (1.3-7.7); Neutrophils % (A) 62 %; RBC 4.14 m/uL (3.80-5.40); RDW 15.2 % (11.5-15.5); WBC 5.2 k/uL (3.8-10.6); WBC (Perox) 5.48
[2017-05-26 13:35] LABS: INR 1.1 (<1.2); Partial Thromboplastin Time 26.1 sec (22.0-30.0); Prothrombin Time 10.7 sec (9.0-12.0)
[2017-05-26 13:42] LABS: Anion Gap 9 mmol/L; Blood Urea Nitrogen 13 mg/dL (7-17); Calcium 9.4 mg/dL (8.4-10.2); Carbon Dioxide 26 mmol/L (22-30); Chloride 104 mmol/L (98-107); Glucose 83 mg/dL (74-99); Non-African American GFR(MDRD) >60 (>60 ml/min/1.73 sqM); Potassium 4.1 mmol/L (3.5-5.1); Sodium 139 mmol/L (137-145)
--- NOTE | 2017-05-26 13:47 | XR ---
EXAMINATION TYPE: XR pelvis AP view DATE OF EXAM: 05/26/2017 CLINICAL HISTORY: Pain from fall TECHNIQUE: A single AP view of the pelvis is obtained. COMPARISON: None. FINDINGS: Osseous structures are demineralized. There is no acute fracture/dislocation evident in the pelvis. The sacroiliac joints appear symmetric and unremarkable. There is mild to moderate axial ryan int space loss in both hips. There are 2 rounded densities projecting over the left hip region presu med external buttons. Consider repeat x-ray to confirm. Left-sided pelvic phlebolith are noted. IMPRESSION: There is no acute fracture or dislocation in the pelvis. There are 2 rounded densities projecting over the left hip region presumed external buttons. Consider repeat x-ray to confirm.
--- NOTE | 2017-05-26 13:48 | XR ---
EXAMINATION TYPE: XR chest 1V DATE OF EXAM: 05/26/2017 COMPARISON: Chest x-ray March 22, 2017 HISTORY: Pain from fall. TECHNIQUE: Single frontal view of the chest is obtained. FINDINGS: Overlying bra is noted. There is no focal air space opacity, pleural effusion, or pneumoth orax seen. The cardiac silhouette size remains enlarged. The osseous structures are demineralized. IMPRESSION: Cardiomegaly without acute pulmonary process.
--- NOTE | 2017-05-26 13:49 | XR ---
EXAMINATION TYPE: XR shoulder limited RT DATE OF EXAM: 05/26/2017 CLINICAL HISTORY: Pain from fall TECHNIQUE: Two views of the right shoulder are obtained. COMPARISON: None. FINDINGS: Osseous structures are demineralized. There is no acute fracture/dislocation evident in th e right shoulder. There is joint space loss at acromioclavicular joint. Glenohumeral joint is more d ifficult to evaluate without the dedicated externally rotated view. The visualized ribs are intact an d unremarkable. IMPRESSION: There is no acute fracture or dislocation in the right shoulder.
[2017-05-26 14:18] LABS: Appearance,Urine Clear (Clear); Bilirubin,Urine Negative (Negative); Glucose,Urine (UA) Negative (Negative); Ketones,Urine Negative (Negative); Leukocyte Esterase,Urine Negative (Negative); Nitrite,Urine Negative (Negative); Protein,Urine Negative (Negative); Specific Gravity,Urine 1.004 (1.001-1.035); UA Billing (MACRO vs. MICRO) CHEM; Urobilinogen,Urine <2.0 mg/dL (<2.0)
--- NOTE | 2017-05-26 14:32 | XR ---
EXAMINATION TYPE: XR knee limited LT DATE OF EXAM: 05/26/2017 CLINICAL HISTORY: Left knee pain after fall injury today TECHNIQUE: 2 views of the left knee are obtained. COMPARISON: None. FINDINGS: There is no acute fracture/dislocation evident in left knee. There is moderate to severe j oint space loss with moderate spurring medial tibiofemoral compartment. Mild joint space loss and spu rring in the patellofemoral compartment is seen. Meniscal calcifications suggesting underlying chondr ocalcinosis is noted. A fabella is present posteriorly. The overlying soft tissue appears unremarkabl e. IMPRESSION: There is no acute fracture or dislocation in the left knee.
--- NOTE | 2017-05-26 14:35 | CT ---
EXAMINATION TYPE: CT brain el schneider DATE OF EXAM: 05/26/2017 COMPARISON: NONE HISTORY: 82-year-old female fall, large contusion over right eye CT DLP: 1319.0 mGycm Automated exposure control for dose reduction was used. Technique: Examination of the head was done in axial plane without intravenous contrast. Coronal and sagittal reconstructions performed. CT of the cervical spine was obtained in axial plane without intravenous injection of contrast mater ial. Coronal and sagittal reformatted images were obtained from the axial views for evaluation of f ractures, spinal alignment and canal. FINDINGS: Head: There is no evidence of acute intracranial hemorrhage, acute ischemic changes, mass, mass-effect, or extra-axial fluid collection. There is no effacement of cerebral sulci or basal subarachnoid cister ns. There is no hydrocephalus. There is no midline shift. Kahn-white matter distinction is preserv ed. Mild to moderate generalized cerebral cortical volume loss. Partially empty sella. There is a right supraorbital soft tissue laceration. Underlying orbits and globes appear intact. Par anasal sinuses and mastoid air cells appear well pneumatized. No calvarial fracture. Cervical spine: No craniocervical junction abnormality, predental space widening, or prevertebral soft tissue swellin g. Multilevel moderate disc/endplate degenerative change. Facet and uncovertebral joint arthropathy is a lso present. Accentuated cervical lordosis in the upper cervical spine with disc osteophyte complex a t C3-C4. There is preserved alignment. Disc osteophyte complex at C6-C7 causes mild to moderate spinal canal stenosis. There are variable mild to moderate neuroforaminal stenoses throughout. Sagittal and coronal reformatted images confirm above findings. COMBINED IMPRESSION: 1. Soft tissue laceration along the right supraorbital region. No acute intracranial abnormality seen . 2. Moderate multilevel spondylotic change. No acute fracture or malalignment of the cervical spine.
[2017-05-26] MEDS ORDERED: ACETAMINOPHEN TAB 325 MG TAB PO STA (15:54)
== END 2017-05-26 16:01 | disposition home or self-care (01) ==
LOC: EC 12:33
DX: S01.111A Laceration without foreign body of right eyelid and periocular area, initial encounter (principal); M19.90 Unspecified osteoarthritis, unspecified site; E07.9 Disorder of thyroid, unspecified; I48.91 Unspecified atrial fibrillation; Z86.14 Personal history of Methicillin resistant Staphylococcus aureus infection; Z23 Encounter for immunization; Z79.899 Other long term (current) drug therapy; Z88.5 Allergy status to narcotic agent; Z88.2 Allergy status to sulfonamides; Z91.040 Latex allergy status; Z91.048 Other nonmedicinal substance allergy status; W01.198A Fall on same level from slipping, tripping and stumbling with subsequent striking against other object, initial encounter; Y93.01 Activity, walking, marching and hiking
CPT/HCPCS: 12013; 36415; 70450; 71010; 72125; 72170; 80048; 81003; 85025; 85610; 85730; 86850; 86900; 86901; 90471; 90715; 99284

== ENCOUNTER → 2017-07-12 | Outpatient (CLI) | payer MEDICARE, OTHER ==
--- NOTE | 2017-07-12 09:10 | BD ---
EXAMINATION TYPE: MG DEXA axial skeleton. DATE OF EXAM: 07/12/2017 COMPARISON: DEXA bone scan March 23, 2015 CLINICAL HISTORY: post menopausal Height: 5'2 1/2 Weight: 156 FRAX RISK QUESTIONS: Alcohol (3 or more units per day): no Family History (Parent hip fracture): no Glucocorticoids (More than 3mos): no (Ex: prednisone, prednisolone, methylprednisolone, dexamethasone, and hydrocortisone). History of Fracture in Adulthood: yes Secondary Osteoporosis: 1. Type 1 Diabetes: no 2. Hyperthyroidism: no 3. Menopause before 45: no 4. Malnutrition: no 5. Chronic liver disease: no Rheumatoid Arthritis: no Current Tobacco Use: no RISK FACTORS HISTORY OF: History of Wrist Fracture: rt When: early adult Postmenopausal woman: MEDICATIONS: Thyroid Medications: Which medication: Synthroid How Long: >5 years Additional Medications: heart meds, Additional History: basal cell , skin cancer EXAM MEASUREMENTS: Bone mineral densitometry was performed using the [employer] System. Bone mineral density as measured about the Lumbar spine is: ----- L1-L4(G/cm2): 0.996 T Score Values are as follows: ----- L2: -2.0 ----- L3: -1.3 ----- L4: -1.2 ----- L1-L4: -1.5 Bone mineral density has: Increased 4.2% since study of: 03/23/2015 Bone mineral density about the R hip (g/cm2): 0.757 Bone mineral density about the L hip (g/cm2): 0.747 T Score values are as follows: -----R Neck: -2.0 -----L Neck: -2.1 -----R Total: -1.2 -----L Total: -1.2 Bone mineral density has: Increased 2.1% since study of: 03/23/2015 IMPRESSION: Osteopenia (T Score between -2.5 and -1 as noted by T score values: Persists in the low back and both hips though bone density is slightly increased or improved from prior. There is slightly increased r isk of fracture and the patient may be considered for treatment. Re-Screen 2-5 years. NOTE: T-SCORE=SD OF THE YOUNG ADULT MEAN.
== END | disposition home or self-care (01) ==
LOC: RADBDWWP 08:36
PROVIDERS: ATTEND Family Medicine
DX: M85.89 Other specified disorders of bone density and structure, multiple sites (principal); Z78.0 Asymptomatic menopausal state
CPT/HCPCS: 77080

== ENCOUNTER → 2018-04-19 | Outpatient (CLI) | payer MEDICARE, OTHER ==
--- NOTE | 2018-04-23 10:00 | MM ---
Reason for exam: screening (asymptomatic). Last mammogram was performed 1 year and 2 months ago. History: Patient is postmenopausal, is of Ashkenazi Anglican descent, and history of other cancer. Family history of breast cancer in sister at age 50, breast cancer in daughter at age 50, and breast cancer in maternal aunt at age 50. Excisional biopsy of both breasts, 1982. Physical Findings: A clinical breast exam by your physician is recommended on an annual basis and results should be correlated with mammographic findings. MG 3D Screening Mammo W/Cad Bilateral CC and MLO view(s) were taken. XCCL view(s) were taken of the left breast. Prior study comparison: March 02, 2017, bilateral MG 3d screening mammo w/cad. March 23, 2015, bilateral MG screening mammo w CAD. There are scattered fibroglandular densities. No significant changes when compared with prior studies. ASSESSMENT: Negative, BI-RAD 1 RECOMMENDATION: Routine screening mammogram of both breasts in 1 year.
== END | disposition home or self-care (01) ==
LOC: RADMAMWWP 14:38
PROVIDERS: ATTEND Obstetrics & Gynecology
DX: Z12.31 Encounter for screening mammogram for malignant neoplasm of breast (principal)
CPT/HCPCS: 77063; 77067

== ENCOUNTER → 2019-01-01 | Outpatient (CLI) | payer MEDICARE ==
--- NOTE | 2019-01-01 11:55 | XR ---
EXAMINATION TYPE: XR chest 2V DATE OF EXAM: 01/01/2019 COMPARISON: 05/26/2017 HISTORY: Cough. TECHNIQUE: Frontal and lateral views of the chest are obtained. FINDINGS: Mild interstitial prominence is seen throughout without focal consolidation. Cardiomediast inal silhouette is again mildly enlarged. Osseous demineralization is present. No pleural effusion or pneumothorax. IMPRESSION: Diffuse interstitial prominence may relate to atypical pneumonitis or can be seen in bro nchitis.
== END | disposition home or self-care (01) ==
LOC: RADXRMAIN 10:37
PROVIDERS: ATTEND Internal Medicine
DX: R91.8 Other nonspecific abnormal finding of lung field (principal)
CPT/HCPCS: 71046

== ENCOUNTER → 2019-01-25 | Day surgery (SDC) | payer MEDICARE ==
[2019-01-22 15:41] VITALS: BMI 26.6
[~2019-01-25] MED LIST changes: +LIDOCAINE 1% 20 ML VIAL (10MG/ML) FOR IV START INTRADERMA ONE; -LIDOCAINE 1% 20 ML VIAL (10MG/ML) FOR IV START INTRADERMA PRN; +ONDANSETRON 4 MG/2 ML VIAL IVP ONE; +PROPOFOL 10 MG/ML 20 ML VIAL IV ONE
--- NOTE | 2019-01-25 06:01 | P.GSHP ---
History of Present Illness H&P Date: 01/25/19 CHIEF COMPLAINT: GERD HISTORY OF PRESENT ILLNESS: The patient is a 83-year-old female who presents reports gastroesophageal reflux disease. Upper endoscopy was offered for further evaluation and management. PAST MEDICAL HISTORY: Please see list. PAST SURGICAL HISTORY: Please see list. MEDICATIONS: Please see list. ALLERGIES: Please see list. SOCIAL HISTORY: No illicit drug use FAMILY HISTORY: No reports of Crohn disease or ulcerative colitis. REVIEW OF ORGAN SYSTEMS: CONSTITUTIONAL: No reports of fevers or chills. GI: Denies any blood in stools or constipation. PHYSICAL EXAM: VITAL SIGNS: Stable GENERAL: Well-developed and pleasant in no acute distress. HEENT: No scleral icterus. Extraocular movements grossly intact. Moist buccal mucosa. NECK: Supple without lymphadenopathy. CHEST: Unlabored respirations. Equal bilateral excursions. CARDIOVASCULAR: Regular rate and rhythm. Distal 2+ pulses. ABDOMEN: Soft, nondistended. MUSCULOSKELETAL: No clubbing, cyanosis, or edema. ASSESSMENT: 1. Gastroesophageal reflux disease PLAN: 1. 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, History of Any Multi-Drug Resistant Organisms: MRSA Date of last positivie culture/infection: 03/21/2017 MDRO Source:: left buttock/left labia Past Surgical History: Appendectomy, Tonsillectomy Additional Past Surgical History / Comment(s): Varicose vein stripping, bilateral cataract removal and intraocular lens implants, skin biopsies and skin cancer removal, breast lumpectomy, I&D 03/15/17 and 03/21/17 of left buttock and left labia Past Anesthesia/Blood Transfusion Reactions: Family History of Problems w/ Anesthesia, Postoperative Nausea & Vomiting (PONV) Additional Past Anesthesia/Blood Transfusion Reaction / Comment(s): family hx of n/v with anesthesia.No hx blood transfusion Smoking Status: Never smoker - Past Family History Mother Family Medical History: AICD/Pacemaker, CVA/TIA, Thyroid Disorder Father Family Medical History: Cancer, COPD, GI Bleed Sister(s) Family Medical History: Cancer Additional Family Medical History / Comment(s): breast Daughter(s) Family Medical History: Cancer Additional Family Medical History / Comment(s): thyroid. granddtr-thyroid ca Medications and Allergies Home Medications Medication Instructions Recorded Confirmed Type Levothyroxine Sodium [Synthroid] 50 mcg PO QAM 03/21/17 01/22/19 History Apixaban [Eliquis] 5 mg PO BID #1 tab 03/27/17 01/22/19 Rx Metoprolol Tartrate [Lopressor] 12.5 mg PO BID tab 03/27/17 01/22/19 Rx Amiodarone [Cordarone] 200 mg PO QAM 04/25/17 01/22/19 History Multivitamins, Thera [Multivitamin 1 tab PO DAILY 05/16/17 01/22/19 History (formulary)] Cholesterol Med 1 tab PO DAILY 01/22/19 History Reflux Med 1 tab PO DAILY 01/22/19 History Allergies Allergy/AdvReac Type Severity Reaction Status Date / Time iodine Allergy Unknown Unknown Verified 01/22/19 15:35 morphine Allergy Unknown Unknown Verified 01/22/19 15:35 codeine Allergy Unknown Verified 01/22/19 15:35 latex Allergy Unknown Verified 01/22/19 15:35 Sulfa (Sulfonamide Allergy Unknown Verified 01/22/19 15:35 Antibiotics) aloe AdvReac Unknown Verified 01/22/19 15:35
[2019-01-25 08:49] VITALS: TEMP 98.3
--- NOTE | 2019-01-25 09:19 | P.PCN ---
Date of Procedure: 01/25/19 Description of Procedure: PREOPERATIVE DIAGNOSIS: Gastroesophageal reflux disease. History of dysphagia POSTOPERATIVE DIAGNOSIS: Gastroesophageal reflux disease. History of dysphagia Diaphragmatic hiatal hernia, paraesophageal type II OPERATION: Esophagogastroduodenoscopy with biopsies along antrum. SURGEON: Kylee Starks MD ANESTHESIA: MAC. INDICATIONS: The patient is a 83-year-old female who presents with a history of reflux disease. Benefits and risks of the procedure were described. Informed consent was obtained. DESCRIPTION: The patient was brought into the endoscopy suite and laid in the left lateral decubitus position. An Olympus gastroscope was passed along the posterior oropharynx down to the distal esophagus where the squamocolumnar junction was encountered at 35 cm from the incisors. The stomach was entered and no bile reflux was found. Additional findings are listed below. Biopsies with cold forceps were obtained of the antrum. The first through third portion of the duodenum was examined and unremarkable. Retroflexion of the scope confirmed Hill grade 4 lower esophageal valve. The squamocolumnar junction demonstrated LA grade A erosive esophagitis. The stomach was desufflated. The patient tolerated the procedure well. FINDINGS: Squamocolumnar junction 35 cm from the incisors. Diaphragmatic hiatus at 40 cm. Hiatal hernia, 5 cm, paraesophageal type II Hill grade 4 lower esophageal valve. LA grade B erosive esophagitis. No active duodenitis. Chronic gastritis RECOMMENDATIONS: Upper endoscopy as needed. Plan - Discharge Summary Discharge Rx Participant: No New Discharge Prescriptions: No Action Levothyroxine Sodium [Synthroid] 50 mcg PO QAM Apixaban [Eliquis] 5 mg PO BID #1 tab Metoprolol Tartrate [Lopressor] 12.5 mg PO BID tab Amiodarone [Cordarone] 200 mg PO QAM Multivitamins, Thera [Multivitamin (formulary)] 1 tab PO DAILY Reflux Med 1 tab PO DAILY Cholesterol Med 1 tab PO DAILY Discharge Medication List Levothyroxine Sodium [Synthroid] 50 mcg PO QAM 03/21/17 [History] Apixaban [Eliquis] 5 mg PO BID #1 tab 03/27/17 [Rx] Metoprolol Tartrate [Lopressor] 12.5 mg PO BID tab 03/27/17 [Rx] Amiodarone [Cordarone] 200 mg PO QAM 04/25/17 [History] Multivitamins, Thera [Multivitamin (formulary)] 1 tab PO DAILY 05/16/17 [History] Cholesterol Med 1 tab PO DAILY 01/22/19 [History] Reflux Med 1 tab PO DAILY 01/22/19 [History] Follow up Appointment(s)/Referral(s): Kylee Starks MD [STAFF PHYSICIAN] - 02/19/19 Patient Instructions/Handouts: Hiatal Hernia (DC) Activity/Diet/Wound Care/Special Instructions: START ELIQUIS ON JANUARY 27 Discharge Disposition: HOME SELF-CARE
[2019-01-25 09:28] VITALS: RESP 17
[2019-01-25 09:42] VITALS: BP 103/59; PULSE 58
== END | disposition home or self-care (01) ==
LOC: ORWHC2ENDO 08:27
PROVIDERS: ATTEND Surgery Plastic and Reconstructive Surgery
DX: K21.0 Gastro-esophageal reflux disease with esophagitis (principal); K29.50 Unspecified chronic gastritis without bleeding; K44.9 Diaphragmatic hernia without obstruction or gangrene; I48.91 Unspecified atrial fibrillation; J44.9 Chronic obstructive pulmonary disease, unspecified; E78.5 Hyperlipidemia, unspecified; I10 Essential (primary) hypertension; M19.90 Unspecified osteoarthritis, unspecified site; E07.9 Disorder of thyroid, unspecified; H54.8 Legal blindness, as defined in USA; Z87.19 Personal history of other diseases of the digestive system; Z85.828 Personal history of other malignant neoplasm of skin; Z86.14 Personal history of Methicillin resistant Staphylococcus aureus infection; Z80.3 Family history of malignant neoplasm of breast; Z80.8 Family history of malignant neoplasm of other organs or systems; Z79.01 Long term (current) use of anticoagulants; Z79.890 Hormone replacement therapy; Z79.899 Other long term (current) drug therapy; Z91.040 Latex allergy status; Z88.5 Allergy status to narcotic agent; Z88.2 Allergy status to sulfonamides; Z91.048 Other nonmedicinal substance allergy status
CPT/HCPCS: 88305; 43239; J2405; J2704

== ENCOUNTER 2019-05-28 10:35 | Emergency (ER) | payer MEDICARE ==
[2019-05-28] MEDS ORDERED: SODIUM CHLORIDE 0.9% 500 ML 500 ML IV STA (11:29)
--- NOTE | 2019-05-28 11:32 | ED ---
General Adult HPI - General Chief complaint: Arrhythmia/Palpitations Stated complaint: Heart Palpitations Time Seen by Provider: 05/28/19 10:45 Source: patient, RN notes reviewed Mode of arrival: ambulatory Limitations: no limitations - History of Present Illness Initial comments: This is an 84-year-old female presents emergency Department has a history of atrial fibrillation. Patient states she's just been treated for urinary tract infection. Patient states she doesn't feel right she states when she gets up and moves around she feels her heart racing. Recent states she also occasionally breaks out into a sweat and has had some left-sided neck pain. Patient denies any chest pain or pressure. Patient denies any shortness of breath or difficulty breathing. Patient denies any recent fever chills or cough per patient denies any abdominal pain patient denies nausea vomiting diarrhea. Patient denies any dysuria hematuria urinary frequency. Patient denies lightheadedness dizziness or near syncopal episode. - Related Data Home Medications Medication Instructions Recorded Confirmed Levothyroxine Sodium [Synthroid] 50 mcg PO QAM 03/21/17 05/28/19 Multivitamins, Thera [Multivitamin 1 tab PO DAILY 05/16/17 05/28/19 (formulary)] Atorvastatin [Lipitor] 20 mg PO HS 05/28/19 05/28/19 Metoprolol Tartrate [Lopressor] 25 mg PO BID 05/28/19 05/28/19 Omeprazole [PriLOSEC] 40 mg PO DAILY 05/28/19 05/28/19 Previous Rx's Medication Instructions Recorded Apixaban [Eliquis] 5 mg PO BID #1 tab 03/27/17 Allergies Allergy/AdvReac Type Severity Reaction Status Date / Time iodine Allergy Unknown Unknown Verified 05/28/19 11:16 morphine Allergy Unknown Unknown Verified 05/28/19 11:16 aloe Allergy Unknown Verified 05/28/19 11:16 codeine Allergy Unknown Verified 05/28/19 11:16 latex Allergy Unknown Verified 05/28/19 11:16 Sulfa (Sulfonamide Allergy Unknown Verified 05/28/19 11:16 Antibiotics) Review of Systems ROS Statement: Those systems with pertinent positive or pertinent negative responses have been documented in the HPI. ROS Other: All systems not noted in ROS Statement are negative. 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,UTIs History of Any Multi-Drug Resistant Organisms: MRSA Date of last positivie culture/infection: 03/21/2017 MDRO Source:: left buttock/left labia Past Surgical History: Appendectomy, Tonsillectomy Additional Past Surgical History / Comment(s): Varicose vein stripping, bilateral cataract removal and intraocular lens implants, skin biopsies and skin cancer removal, breast lumpectomy, I&D 03/15/17 and 03/21/17 of left buttock and left labia Past Anesthesia/Blood Transfusion Reactions: Family History of Problems w/ Anesthesia, Postoperative Nausea & Vomiting (PONV) Additional Past Anesthesia/Blood Transfusion Reaction / Comment(s): family hx of n/v with anesthesia.No hx blood transfusion Past Psychological History: No Psychological Hx Reported Smoking Status: Never smoker Past Alcohol Use History: Rare Past Drug Use History: None Reported - Past Family History Mother Family Medical History: AICD/Pacemaker, CVA/TIA, Thyroid Disorder Father Family Medical History: Cancer, COPD, GI Bleed Sister(s) Family Medical History: Cancer Additional Family Medical History / Comment(s): breast Daughter(s) Family Medical History: Cancer Additional Family Medical History / Comment(s): thyroid. granddtr-thyroid ca General Exam - General Exam Comments Initial Comments: GENERAL: Patient is well-developed and well-nourished. Patient is nontoxic and well- hydrated and is in mild distress. ENT: Neck is soft and supple. No significant lymphadenopathy is noted. Oropharynx is clear. Moist mucous membranes. Neck has full range of motion without eliciting any pain. EYES: The sclera were anicteric and conjunctiva were pink and moist. Extraocular movements were intact and pupils were equal round and reactive to light. Eyelids were unremarkable. PULMONARY: Unlabored respirations. Good breath sounds bilaterally. No audible rales rho nchi or wheezing was noted. CARDIOVASCULAR: Patient has an irregular rate and rhythm ABDOMEN: Soft and nontender with normal bowel sounds. No palpable organomegaly was noted. There is no palpable pulsatile mass. SKIN: Skin is clear with no lesions or rashes and otherwise unremarkable. NEUROLOGIC: Patient is alert and oriented x3. Cranial nerves II through XII are grossly intact. Motor and sensory are also intact. Normal speech, volume and content. Symmetrical smile. MUSCULOSKELETAL: Normal extremities with adequate strength and full range of motion. LYMPHATICS: No significant lymphadenopathy is noted PSYCHIATRIC: Normal psychiatric evaluation. Limitations: no limitations Course Vital Signs 05/28/19 05/28/19 05/28/19 10:43 11:00 11:45 Temperature 97.9 F Pulse Rate 103 H Pulse Rate [ 98 Instructor Painting ] Respiratory 18 Rate Blood Pressure 125/83 Blood Pressure 125/83 [Left Arm Sitting] Blood Pressure 115/92 [Left Arm Standing] Blood Pressure 135/88 [Left Arm Supine] O2 Sat by Pulse 95 Oximetry 05/28/19 14:33 Temperature 97.6 F Pulse Rate 96 Pulse Rate [ Instructor Painting ] Respiratory 13 Rate Blood Pressure 112/86 Blood Pressure [Left Arm Sitting] Blood Pressure [Left Arm Standing] Blood Pressure [Left Arm Supine] O2 Sat by Pulse 98 Oximetry Medical Decision Making - Medical Decision Making EKG shows atrial fibrillation at 91 bpm QRS is 70 QT interval 352 QTC is 432. Patient's EKG shows no ST segment elevation or depression or T wave abnormalities are noted. I spoke with Dr. Tate and informed him of the patient's palpitations and diaphoretic episodes he wanted the patient to be bumped up on her beta allison to twice a day and follow-up this week with primary medical care doctor. I went back and reevaluated the patient she was asymptomatic at this time and she will follow-up with her primary medical care doctor. - Lab Data Result diagrams: 05/28/19 11:48 05/28/19 11:48 Lab Results 05/28/19 05/28/19 05/28/19 Range/Units 11:48 11:48 11:48 WBC 6.0 (3.8-10.6) k/uL RBC 4.76 (3.80-5.40) m/uL Hgb 14.5 (11.4-16.0) gm/dL Hct 44.4 (34.0-46.0) % MCV 93.3 (80.0-100.0) fL MCH 30.5 (25.0-35.0) pg MCHC 32.7 (31.0-37.0) g/dL RDW 13.2 (11.5-15.5) % Plt Count 190 (150-450) k/uL Neutrophils % 66 % Lymphocytes % 18 % Monocytes % 6 % Eosinophils % 6 % Basophils % 1 % Neutrophils # 4.0 (1.3-7.7) k/uL Lymphocytes # 1.1 (1.0-4.8) k/uL Monocytes # 0.3 (0-1.0) k/uL Eosinophils # 0.4 (0-0.7) k/uL Basophils # 0.0 (0-0.2) k/uL PT 10.4 (9.0-12.0) sec INR 1.0 (<1.2) APTT 27.8 (22.0-30.0) sec Sodium 136 L (137-145) mmol/L Potassium 4.4 (3.5-5.1) mmol/L Chloride 103 (98-107) mmol/L Carbon Dioxide 22 (22-30) mmol/L Anion Gap 11 mmol/L BUN 20 H (7-17) mg/dL Creatinine 0.68 (0.52-1.04) mg/dL Est GFR (CKD-EPI)AfAm >90 (>60 ml/min/1.73 sqM) Est GFR (CKD-EPI)NonAf 81 (>60 ml/min/1.73 sqM) Glucose 98 (74-99) mg/dL Calcium 9.0 (8.4-10.2) mg/dL Magnesium 2.0 (1.6-2.3) mg/dL Total Bilirubin 0.8 (0.2-1.3) mg/dL AST 65 H (14-36) U/L ALT 52 (9-52) U/L Alkaline Phosphatase 117 (38-126) U/L Troponin I (0.000-0.034) ng/mL Total Protein 7.3 (6.3-8.2) g/dL Albumin 4.1 (3.5-5.0) g/dL TSH 0.689 (0.465-4.680) mIU/L Urine Color Urine Appearance (Clear) Urine pH (5.0-8.0) Ur Specific [place] (1.001-1.035) Urine Protein (Negative) Urine Glucose (UA) (Negative) Urine Ketones (Negative) Urine Blood (Negative) Urine Nitrite (Negative) Urine Bilirubin (Negative) Urine Urobilinogen (<2.0) mg/dL Ur Leukocyte Esterase (Negative) 05/28/19 05/28/19 Range/Units 11:48 11:48 WBC (3.8-10.6) k/uL RBC (3.80-5.40) m/uL Hgb (11.4-16.0) gm/dL Hct (34.0-46.0) % MCV (80.0-100.0) fL MCH (25.0-35.0) pg MCHC (31.0-37.0) g/dL RDW (11.5-15.5) % Plt Count (150-450) k/uL Neutrophils % % Lymphocytes % % Monocytes % % Eosinophils % % Basophils % % Neutrophils # (1.3-7.7) k/uL Lymphocytes # (1.0-4.8) k/uL Monocytes # (0-1.0) k/uL Eosinophils # (0-0.7) k/uL Basophils # (0-0.2) k/uL PT (9.0-12.0) sec INR (<1.2) APTT (22.0-30.0) sec Sodium (137-145) mmol/L Potassium (3.5-5.1) mmol/L Chloride (98-107) mmol/L Carbon Dioxide (22-30) mmol/L Anion Gap mmol/L BUN (7-17) mg/dL Creatinine (0.52-1.04) mg/dL Est GFR (CKD-EPI)AfAm (>60 ml/min/1.73 sqM) Est GFR (CKD-EPI)NonAf (>60 ml/min/1.73 sqM) Glucose (74-99) mg/dL Calcium (8.4-10.2) mg/dL Magnesium (1.6-2.3) mg/dL Total Bilirubin (0.2-1.3) mg/dL AST (14-36) U/L ALT (9-52) U/L Alkaline Phosphatase (38-126) U/L Troponin I 0.026 (0.000-0.034) ng/mL Total Protein (6.3-8.2) g/dL Albumin (3.5-5.0) g/dL TSH (0.465-4.680) mIU/L Urine Color Yellow Urine Appearance Clear (Clear) Urine pH 5.5 (5.0-8.0) Ur Specific [place] 1.005 (1.001-1.035) Urine Protein Negative (Negative) Urine Glucose (UA) Negative (Negative) Urine Ketones 1+ H (Negative) Urine Blood Negative (Negative) Urine Nitrite Negative (Negative) Urine Bilirubin Negative (Negative) Urine Urobilinogen <2.0 (<2.0) mg/dL Ur Leukocyte Esterase Negative (Negative) Disposition Clinical Impression: Palpitations Disposition: HOME SELF-CARE Condition: Good Instructions (If sedation given, give patient instructions): Heart Palpitations (ED) Additional Instructions: Patient is to increase the Lopressor from once a day to twice a day. Patient is to follow-up with primary medical care doctor. Is patient prescribed a controlled substance at d/c from ED?: No Referrals: Mark Faulkner MD [Primary Care Provider] - 1-2 days Time of Disposition: 14:07
[2019-05-28 12:06] LABS: Appearance,Urine Clear (Clear); Bilirubin,Urine Negative (Negative); Blood,Urine Negative (Negative); Color,Urine Yellow; Glucose,Urine (UA) Negative (Negative); Ketones,Urine 1+ (Negative); Leukocyte Esterase,Urine Negative (Negative); Nitrite,Urine Negative (Negative); PH, Urine 5.5 (5.0-8.0); Protein,Urine Negative (Negative); Specific Gravity,Urine 1.005 (1.001-1.035); Urobilinogen,Urine <2.0 mg/dL (<2.0)
[2019-05-28 12:08] LABS: Basophils % (A) 1 %; Eosinophils # (A) 0.4 k/uL (0-0.7); Eosinophils % (A) 6 %; HCT 44.4 % (34.0-46.0); HGB 14.5 gm/dL (11.4-16.0); Lymphocytes # (A) 1.1 k/uL (1.0-4.8); Lymphocytes % (A) 18 %; MCH 30.5 pg (25.0-35.0); MCHC 32.7 g/dL (31.0-37.0); MCV 93.3 fL (80.0-100.0); Mean Platelet Volume 8.1; Monocytes # (A) 0.3 k/uL (0-1.0); Monocytes % (A) 6 %; Neutrophils % (A) 66 %; Platelet Count 190 k/uL (150-450); RBC 4.76 m/uL (3.80-5.40); RDW 13.2 % (11.5-15.5)
--- NOTE | 2019-05-28 12:15 | XR ---
EXAMINATION TYPE: XR chest 2V DATE OF EXAM: 05/28/2019 COMPARISON: 01/01/2019 HISTORY: Dysrhythmia and weakness TECHNIQUE: Frontal and lateral views of the chest are obtained. FINDINGS: There is no focal air space opacity, pleural effusion, or pneumothorax seen. The cardiac silhouette size is enlarged. Strand-like bibasilar opacities are seen, left greater than right. Pulm onary hyperinflation and slight flattening of the diaphragms relates underlying COPD. The osseous str uctures are intact. There is generalized osseous demineralization and levoscoliosis of the thoracolum bar junction. IMPRESSION: 1. Strand-like bibasilar subsegmental atelectasis, left greater than right. 2. Underlying COPD. 3. Enlarged cardiac mediastinal silhouette as seen on the prior.
[2019-05-28 12:19] LABS: Partial Thromboplastin Time 27.8 sec (22.0-30.0); Prothrombin Time 10.4 sec (9.0-12.0)
[2019-05-28 12:27] LABS: ALT 52 U/L (9-52); AST 65 U/L (14-36); African American GFR (CKD) >90 (>60 ml/min/1.73 sqM); Albumin 4.1 g/dL (3.5-5.0); Alkaline Phosphatase 117 U/L (38-126); Anion Gap 11 mmol/L; Blood Urea Nitrogen 20 mg/dL (7-17); Carbon Dioxide 22 mmol/L (22-30); Chloride 103 mmol/L (98-107); Glucose 98 mg/dL (74-99); Potassium 4.4 mmol/L (3.5-5.1); Sodium 136 mmol/L (137-145); Total Bilirubin 0.8 mg/dL (0.2-1.3); Total Protein 7.3 g/dL (6.3-8.2)
[2019-05-28 14:34] VITALS: BP 112/86; PULSE 96; RESP 13; TEMP 97.6
== END 2019-05-28 14:20 | disposition home or self-care (01) ==
LOC: EC 10:35
DX: R00.2 Palpitations (principal); I48.91 Unspecified atrial fibrillation; R61 Generalized hyperhidrosis; M54.2 Cervicalgia; K21.9 Gastro-esophageal reflux disease without esophagitis; I10 Essential (primary) hypertension; E07.9 Disorder of thyroid, unspecified; Z82.49 Family history of ischemic heart disease and other diseases of the circulatory system; Z88.2 Allergy status to sulfonamides; Z88.5 Allergy status to narcotic agent; Z91.040 Latex allergy status; Z91.048 Other nonmedicinal substance allergy status; Z79.890 Hormone replacement therapy; Z79.899 Other long term (current) drug therapy; Z86.14 Personal history of Methicillin resistant Staphylococcus aureus infection; Z85.828 Personal history of other malignant neoplasm of skin; Z98.890 Other specified postprocedural states
CPT/HCPCS: 36415; 71046; 80053; 81003; 83735; 84443; 84484; 85025; 85610; 85730; 93005; 96360; 99285

== ENCOUNTER 2019-06-10 11:33 | Inpatient (IN) | payer MEDICARE ==
--- NOTE | 2019-06-10 12:47 | ED ---
General Adult HPI - General Chief complaint: Arrhythmia/Palpitations Stated complaint: sent by Dr Marino for heart issues Time Seen by Provider: 06/10/19 11:59 Source: patient, family, RN notes reviewed Mode of arrival: ambulatory Limitations: no limitations - History of Present Illness Initial comments: Patient is a pleasant 84-year-old female presenting to the emergency Department with complaints of palpitations. Patient does have history of atrial fibrillation. Patient has been having worsening symptoms over the past few days. Patient feels her heart is regular. Patient is feeling her heart beat in her ears. Patient has been more fatigued lately. Patient has had several medication changes. Patient did call Dr. Marino's office and he advised her to come to the emergency department. They have been discussing whether or not to place a pacemaker. - Related Data Home Medications Medication Instructions Recorded Confirmed Levothyroxine Sodium [Synthroid] 50 mcg PO QAM 03/21/17 06/10/19 Multivitamins, Thera [Multivitamin 1 tab PO DAILY 05/16/17 06/10/19 (formulary)] Atorvastatin [Lipitor] 20 mg PO HS 05/28/19 06/10/19 Metoprolol Tartrate [Lopressor] 12.5 mg PO BID 05/28/19 06/10/19 Omeprazole [PriLOSEC] 40 mg PO DAILY 05/28/19 06/10/19 Previous Rx's Medication Instructions Recorded Apixaban [Eliquis] 5 mg PO BID #1 tab 03/27/17 Allergies Allergy/AdvReac Type Severity Reaction Status Date / Time iodine Allergy Unknown Unknown Verified 06/10/19 13:36 morphine Allergy Unknown Unknown Verified 06/10/19 13:36 aloe Allergy Unknown Verified 06/10/19 13:36 codeine Allergy Unknown Verified 06/10/19 13:36 latex Allergy Unknown Verified 06/10/19 13:36 Sulfa (Sulfonamide Allergy Unknown Verified 06/10/19 13:36 Antibiotics) Review of Systems ROS Statement: Those systems with pertinent positive or pertinent negative responses have been documented in the HPI. ROS Other: All systems not noted in ROS Statement are negative. Constitutional: Denies: fever Eyes: Denies: eye pain ENT: Denies: ear pain Respiratory: Denies: cough Cardiovascular: Reports: palpitations Endocrine: Reports: fatigue Gastrointestinal: Denies: abdominal pain Genitourinary: Denies: dysuria Musculoskeletal: Denies: back pain Skin: Denies: rash Neurological: Denies: weakness 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,UTIs History of Any Multi-Drug Resistant Organisms: MRSA Date of last positivie culture/infection: 03/21/2017 MDRO Source:: left buttock/left labia Past Surgical History: Appendectomy, Tonsillectomy Additional Past Surgical History / Comment(s): Varicose vein stripping, bilateral cataract removal and intraocular lens implants, skin biopsies and skin cancer removal, breast lumpectomy, I&D 03/15/17 and 03/21/17 of left buttock and left labia Past Anesthesia/Blood Transfusion Reactions: Family History of Problems w/ Anesthesia, Postoperative Nausea & Vomiting (PONV) Additional Past Anesthesia/Blood Transfusion Reaction / Comment(s): family hx of n/v with anesthesia.No hx blood transfusion Past Psychological History: No Psychological Hx Reported Smoking Status: Never smoker Past Alcohol Use History: Rare Past Drug Use History: None Reported - Past Family History Mother Family Medical History: AICD/Pacemaker, CVA/TIA, Thyroid Disorder Father Family Medical History: Cancer, COPD, GI Bleed Sister(s) Family Medical History: Cancer Additional Family Medical History / Comment(s): breast Daughter(s) Family Medical History: Cancer Additional Family Medical History / Comment(s): thyroid. granddtr-thyroid ca General Exam Limitations: no limitations General appearance: alert, in no apparent distress Head exam: Present: atraumatic Eye exam: Present: normal appearance, PERRL Neck exam: Present: normal inspection Respiratory exam: Present: normal lung sounds bilaterally Cardiovascular Exam: Present: bradycardia Expanded Peripheral pulses: 2+: Radial (R), Radial (L), Dorsalis Pedis (R), Dorsalis Pedis (L) GI/Abdominal exam: Present: soft. Absent: distended, tenderness, guarding, rebound, rigid Extremities exam: Present: normal inspection. Absent: tenderness, pedal edema, calf tenderness Neurological exam: Present: alert. Absent: motor sensory deficit Psychiatric exam: Present: normal affect, normal mood Skin exam: Present: normal color Course Vital Signs 06/10/19 06/10/19 06/10/19 11:45 12:04 12:10 Temperature 98.2 F Pulse Rate 60 56 L 56 L Respiratory 18 18 13 Rate Blood Pressure 139/76 144/75 O2 Sat by Pulse 95 Oximetry 06/10/19 06/10/19 06/10/19 12:20 12:30 12:40 Temperature Pulse Rate 56 L 57 L 57 L Respiratory 15 15 12 Rate Blood Pressure 144/75 144/75 141/86 O2 Sat by Pulse Oximetry 06/10/19 06/10/19 06/10/19 12:50 13:00 13:05 Temperature Pulse Rate 55 L 55 L 55 L Respiratory 7 L 9 L 9 L Rate Blood Pressure 144/72 144/72 144/72 O2 Sat by Pulse Oximetry 06/10/19 06/10/19 06/10/19 13:30 14:00 14:14 Temperature Pulse Rate 53 L 54 L 54 L Respiratory 13 13 13 Rate Blood Pressure 146/64 146/70 146/70 O2 Sat by Pulse Oximetry EKG Findings - EKG Comments: EKG Findings:: Sinus bradycardia 56. For screening AV block MD of 216. QRS 80. QT 464. QTC 447. Normal axis. Normal QRS. No acute ST change. Medical Decision Making - Medical Decision Making Patient reevaluated. Patient and family updated on results and plan. Case was discussed with Dr. August, who will admit covering for Dr. Faulkner. - Lab Data Result diagrams: 06/10/19 12:00 06/10/19 12:00 Lab Results 06/10/19 06/10/19 06/10/19 Range/Units 12:00 12:00 12:00 WBC 7.2 (3.8-10.6) k/uL RBC 4.15 (3.80-5.40) m/uL Hgb 12.6 (11.4-16.0) gm/dL Hct 38.7 (34.0-46.0) % MCV 93.2 (80.0-100.0) fL MCH 30.4 (25.0-35.0) pg MCHC 32.7 (31.0-37.0) g/dL RDW 13.8 (11.5-15.5) % Plt Count 197 (150-450) k/uL Neutrophils % 70 % Lymphocytes % 20 % Monocytes % 6 % Eosinophils % 1 % Basophils % 0 % Neutrophils # 5.1 (1.3-7.7) k/uL Lymphocytes # 1.4 (1.0-4.8) k/uL Monocytes # 0.4 (0-1.0) k/uL Eosinophils # 0.1 (0-0.7) k/uL Basophils # 0.0 (0-0.2) k/uL PT 10.9 (9.0-12.0) sec INR 1.0 (<1.2) APTT 26.7 (22.0-30.0) sec Sodium 139 (137-145) mmol/L Potassium 4.6 (3.5-5.1) mmol/L Chloride 103 (98-107) mmol/L Carbon Dioxide 25 (22-30) mmol/L Anion Gap 11 mmol/L BUN 20 H (7-17) mg/dL Creatinine 0.75 (0.52-1.04) mg/dL Est GFR (CKD-EPI)AfAm 85 (>60 ml/min/1.73 sqM) Est GFR (CKD-EPI)NonAf 74 (>60 ml/min/1.73 sqM) Glucose 88 (74-99) mg/dL Calcium 9.3 (8.4-10.2) mg/dL Magnesium 2.0 (1.6-2.3) mg/dL Total Bilirubin 0.8 (0.2-1.3) mg/dL AST 53 H (14-36) U/L ALT 68 H (9-52) U/L Alkaline Phosphatase 112 (38-126) U/L Creatine Kinase 65 (30-135) U/L Troponin I (0.000-0.034) ng/mL Total Protein 7.3 (6.3-8.2) g/dL Albumin 4.2 (3.5-5.0) g/dL TSH 2.230 (0.465-4.680) mIU/L Free T4 2.00 (0.78-2.19) ng/dL Free T3 pg/mL 2.4 L (2.8-5.3) pg/ml 06/10/19 Range/Units 12:00 WBC (3.8-10.6) k/uL RBC (3.80-5.40) m/uL Hgb (11.4-16.0) gm/dL Hct (34.0-46.0) % MCV (80.0-100.0) fL MCH (25.0-35.0) pg MCHC (31.0-37.0) g/dL RDW (11.5-15.5) % Plt Count (150-450) k/uL Neutrophils % % Lymphocytes % % Monocytes % % Eosinophils % % Basophils % % Neutrophils # (1.3-7.7) k/uL Lymphocytes # (1.0-4.8) k/uL Monocytes # (0-1.0) k/uL Eosinophils # (0-0.7) k/uL Basophils # (0-0.2) k/uL PT (9.0-12.0) sec INR (<1.2) APTT (22.0-30.0) sec Sodium (137-145) mmol/L Potassium (3.5-5.1) mmol/L Chloride (98-107) mmol/L Carbon Dioxide (22-30) mmol/L Anion Gap mmol/L BUN (7-17) mg/dL Creatinine (0.52-1.04) mg/dL Est GFR (CKD-EPI)AfAm (>60 ml/min/1.73 sqM) Est GFR (CKD-EPI)NonAf (>60 ml/min/1.73 sqM) Glucose (74-99) mg/dL Calcium (8.4-10.2) mg/dL Magnesium (1.6-2.3) mg/dL Total Bilirubin (0.2-1.3) mg/dL AST (14-36) U/L ALT (9-52) U/L Alkaline Phosphatase (38-126) U/L Creatine Kinase (30-135) U/L Troponin I <0.012 (0.000-0.034) ng/mL Total Protein (6.3-8.2) g/dL Albumin (3.5-5.0) g/dL TSH (0.465-4.680) mIU/L Free T4 (0.78-2.19) ng/dL Free T3 pg/mL (2.8-5.3) pg/ml - Radiology Data Radiology results: image reviewed (X-ray shows multifocal pneumonia) Disposition Clinical Impression: Multifocal pneumonia Disposition: ADMITTED IP TO THIS HOSP Is patient prescribed a controlled substance at d/c from ED?: No Referrals: Mark Faulkner MD [Primary Care Provider] - 1-2 days Decision Time: 15:58
[2019-06-10 12:54] LABS: Basophils % (A) 0 %; Eosinophils # (A) 0.1 k/uL (0-0.7); Eosinophils % (A) 1 %; HCT 38.7 % (34.0-46.0); HGB 12.6 gm/dL (11.4-16.0); Lymphocytes # (A) 1.4 k/uL (1.0-4.8); Lymphocytes % (A) 20 %; MCH 30.4 pg (25.0-35.0); MCHC 32.7 g/dL (31.0-37.0); MCV 93.2 fL (80.0-100.0); Monocytes # (A) 0.4 k/uL (0-1.0); Monocytes % (A) 6 %; Neutrophils # (A) 5.1 k/uL (1.3-7.7); Neutrophils % (A) 70 %; Platelet Count 197 k/uL (150-450); RBC 4.15 m/uL (3.80-5.40); RDW 13.8 % (11.5-15.5); WBC 7.2 k/uL (3.8-10.6)
[2019-06-10 13:02] LABS: Albumin 4.2 g/dL (3.5-5.0); Calcium 9.3 mg/dL (8.4-10.2); Potassium 4.6 mmol/L (3.5-5.1); Total Bilirubin 0.8 mg/dL (0.2-1.3); Total Protein 7.3 g/dL (6.3-8.2)
[2019-06-10 13:05] LABS: Partial Thromboplastin Time 26.7 sec (22.0-30.0); Prothrombin Time 10.9 sec (9.0-12.0)
--- NOTE | 2019-06-10 13:11 | XR ---
EXAMINATION TYPE: XR chest 2V DATE OF EXAM: 06/10/2019 COMPARISON: 05/28/2019 HISTORY: Dysrhythmia and weakness TECHNIQUE: Frontal and lateral views of the chest are obtained. FINDINGS: Patchy left infrahilar and right basilar opacities have developed in the interim. Lung api portia are well aerated. Cardia mediastinal silhouette is mildly enlarged. Osseous demineralization is s een with mild degenerative changes of the spine and shoulders. No pulmonary vascular congestion or pn eumothorax. IMPRESSION: New left infrahilar and right lower lung opacities concerning for multifocal pneumonia.
[2019-06-10] MEDS ORDERED: LEVOFLOXACIN 750MG-D5W PMX 750 MG in DEXTROSE/WATER 1 150ML.BAG IVPB STA (15:59)
[2019-06-10] MEDS ORDERED: PNEUMONIA PROTOCOL UTILIZED 1 EACH MISC PO PRN (15:59)
[2019-06-10] MEDS ORDERED: PIPERACILLIN-TAZOBACTAM 3.375 GM in SODIUM CHLORIDE 0.9% 100 ML IVPB STA (15:59)
--- NOTE | 2019-06-10 16:29 | P.HPIM ---
History of Present Illness H&P Date: 06/10/19 Chief Complaint: Palpitations This is a pleasant 84-year-old lady patient of Dr. Faulkner. She has underlying history of atrial fibrillation hypertension COPD also arthritis, basal cell, hypothyroidism, admitted to the hospital secondary to palpitations, and was sent in after phone consult with Dr. JD Marino's office for evaluation. Patient has had symptoms of palpitations, for the past several days, , no chest pressure, she had several medication changes lately, and was subsequently sent to the emergency room for further evaluation. Patient denies any fever no chills, patient denies any hematuria dysuria or melena, no aspirative evnets, no recent foreign travels. 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 neck pain, Denies bleeding gums, Denies dental pain, Denies dysphagia, Denies epistaxis, Denies headache, Denies hoarseness, Denies mouth pain, Denies nasal congestion, Denies nasal discharge, Denies neck fullness/pressure, Denies neck lump, Denies nose pain, Denies odynophagia, Denies post-nasal drip, Denies sinus pain, Denies sinus pressure, Denies swelling in mouth, Denies swelling in throat, Denies sore throat, Denies vertigo, Denies voice changes Cardiovascular: Reports as per HPI, Denies chest pain, Denies claudication, Denies decreased exercise tolerance, Denies dyspnea on exertion, Denies edema, Denies high blood pressure, Denies irregular heart beat, Denies leg edema, Denies lightheadedness, Denies orthopnea, Denies palpitations, Denies paroxysmal nocturnal dyspnea, Denies phlebitis, Denies rapid heart beat, Denies shortness of breath, Denies syncope Respiratory: Denies as per HPI, Denies congestion, Denies cough, Denies cough with sputum, Denies dyspnea, Denies excessive sputum, Denies hemoptysis, Denies home oxygen, Denies pain, Denies pain on inspiration, Denies pleurisy, Denies respiratory infections, Denies sleep apnea, Denies snoring, Denies wheezing Gastrointestinal: Reports as per HPI, Reports nausea, Denies abdominal pain, Denies belching, Denies bloating, Denies BRBPR, Denies change in bowel habits, Denies coffee ground emesis, Denies constipation, Denies diarrhea, Denies dyspepsia, Denies early satiety, Denies excessive gas, Denies heartburn, Denies hematemesis, Denies hematochezia, Denies indigestion, Denies jaundice, Denies lactose intolerance, Denies loss of appetite, Denies melena, Denies vomiting Genitourinary: Reports as per HPI, Denies abnormal vaginal bleeding, Denies decreased libido, Denies difficulty conceiving, Denies difficulty voiding, Denies dysmenorrhea, Denies dyspareunia, Denies dysuria, Denies flank pain, Denies genital sores, Denies hematuria, Denies hot flashes, Denies incomplete emptying, Denies kidney stones, Denies menorrhagia, Denies mixed incontinence, Denies nocturia, Denies pelvic pain, Denies post void dribbling, Denies , Denies prolapse symptoms, Denies stress incontinence, Denies urge incontinence, Denies urgency, Denies urinary frequency, Denies vaginal discharge, Denies vaginal dryness, Denies vaginal itching, Denies vaginal odor Menstruation: Reports as per HPI Musculoskeletal: Reports as per HPI Integumentary: Reports as per HPI Neurological: Reports as per HPI, Denies aphasia, Denies ataxia, Denies balance difficulties, Denies burning pain, Denies change in mentation, Denies change in smell/taste, Denies change in speech, Denies confusion, Denies convulsions, Denies double vision, Denies gait dysfunction, Denies head injury, Denies headaches, Denies hearing difficulties, Denies lack of coordination, Denies loss of vision, Denies memory loss, Denies migraines, Denies motor disturbance, Denies numbness, Denies paralysis, Denies paresthesias, Denies seizures, Denies sensory deficit, Denies spasticity, Denies syncope, Denies tic, Denies tingling, Denies transient paralysis, Denies tremors, Denies vertigo, Denies weakness, Denies visual changes Psychiatric: Reports as per HPI Endocrine: Reports as per HPI, Denies cold intolerance, Denies deepening of the voice, Denies excessive sweating, Denies excessive thirst, Denies fatigue, Denies flushing, Denies heat intolerance, Denies high blood sugars, Denies increase in ring/shoe/hat size, Denies low blood sugars, Denies nocturia, Denies palpitations, Denies polydipsia, Denies polyphagia, Denies polyuria, Denies proptosis, Denies recent glucocorticoid use, Denies thyroid mass, Denies weight change Hematologic/Lymphatic: Reports as per HPI Allergic/Immunologic: Reports as per HPI, Denies allergic rhinitis, Denies anaphylaxis, Denies angioedema, Denies gluten intolerance, Denies persistent infections, Denies seasonal allergies, Denies urticaria, Denies wheezing 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,UTIs History of Any Multi-Drug Resistant Organisms: MRSA Date of last positivie culture/infection: 03/21/2017 MDRO Source:: left buttock/left labia Past Surgical History: Appendectomy, Tonsillectomy Additional Past Surgical History / Comment(s): Varicose vein stripping, bilateral cataract removal and intraocular lens implants, skin biopsies and skin cancer removal, breast lumpectomy, I&D 03/15/17 and 03/21/17 of left buttock and left labia Past Anesthesia/Blood Transfusion Reactions: Family History of Problems w/ Anesthesia, Postoperative Nausea & Vomiting (PONV) Additional Past Anesthesia/Blood Transfusion Reaction / Comment(s): family hx of n/v with anesthesia.No hx blood transfusion Past Psychological History: No Psychological Hx Reported Smoking Status: Never smoker Past Alcohol Use History: Rare Past Drug Use History: None Reported - Past Family History Mother Family Medical History: AICD/Pacemaker, CVA/TIA, Thyroid Disorder Father Family Medical History: Cancer, COPD, GI Bleed Sister(s) Family Medical History: Cancer Additional Family Medical History / Comment(s): breast Daughter(s) Family Medical History: Cancer Additional Family Medical History / Comment(s): thyroid. granddtr-thyroid ca Medications and Allergies Home Medications Medication Instructions Recorded Confirmed Type Levothyroxine Sodium [Synthroid] 50 mcg PO QAM 03/21/17 06/10/19 History Apixaban [Eliquis] 5 mg PO BID #1 tab 03/27/17 06/10/19 Rx Multivitamins, Thera [Multivitamin 1 tab PO DAILY 05/16/17 06/10/19 History (formulary)] Atorvastatin [Lipitor] 20 mg PO HS 05/28/19 06/10/19 History Metoprolol Tartrate [Lopressor] 12.5 mg PO BID 05/28/19 06/10/19 History Omeprazole [PriLOSEC] 40 mg PO DAILY 05/28/19 06/10/19 History Allergies Allergy/AdvReac Type Severity Reaction Status Date / Time iodine Allergy Unknown Unknown Verified 06/10/19 13:36 morphine Allergy Unknown Unknown Verified 06/10/19 13:36 aloe Allergy Unknown Verified 06/10/19 13:36 codeine Allergy Unknown Verified 06/10/19 13:36 latex Allergy Unknown Verified 06/10/19 13:36 Sulfa (Sulfonamide Allergy Unknown Verified 06/10/19 13:36 Antibiotics) Physical Exam Vitals: Vital Signs Temp Pulse Resp BP Pulse Ox 06/10/19 14:14 54 L 13 146/70 06/10/19 14:00 54 L 13 146/70 06/10/19 13:30 53 L 13 146/64 06/10/19 13:05 55 L 9 L 144/72 06/10/19 13:00 55 L 9 L 144/72 06/10/19 12:50 55 L 7 L 144/72 06/10/19 12:40 57 L 12 141/86 06/10/19 12:30 57 L 15 144/75 06/10/19 12:20 56 L 15 144/75 06/10/19 12:10 56 L 13 144/75 06/10/19 12:04 56 L 18 06/10/19 11:45 98.2 F 60 18 139/76 95 Intake and Output 06/10/19 06/10/19 06/10/19 06:59 14:59 22:59 Other: Weight 72.575 kg - Constitutional General appearance: cooperative, no acute distress - EENT Eyes: anicteric sclerae, EOMI, PERRLA, dentition normal, normal appearance ENT: NA/AT - Neck Neck: normal ROM - Respiratory Respiratory: bilateral: CTA, negative: diminished, dullness - Cardiovascular Rhythm: regular Heart sounds: normal: S1, S2 Abnormal Heart Sounds: no systolic murmur, no diastolic murmur, no rub, no S3 Gallop, no S4 Gallop, no click, no other - Gastrointestinal General gastrointestinal: normal bowel sounds, soft - Integumentary Integumentary: normal - Musculoskeletal Musculoskeletal: gait normal, strength equal bilaterally - Psychiatric Psychiatric: A&O x's 3, appropriate affect, intact judgment & insight Results CBC & Chem 7: 06/10/19 12:00 06/10/19 12:00 Labs: Abnormal Lab Results - Last 24 Hours (Table) 06/10/19 Range/Units 12:00 BUN 20 H (7-17) mg/dL AST 53 H (14-36) U/L ALT 68 H (9-52) U/L Free T3 pg/mL 2.4 L (2.8-5.3) pg/ml Thrombosis Risk Factor Assmnt - DVT/VTE Prophylaxis DVT/VTE Prophylaxis: Pharmacologic Prophylaxis ordered - Choose All That Apply Each Risk Factor Represents 3 Points: Age 75 years or older Thrombosis Risk Factor Assessment Total Risk Factor Score: 3 Thrombosis Risk Factor Assessment Level: Moderate Risk Assessment and Plan Plan: 1. afib with variable rate, possible tachybrady syndrome, consultation by cardiology, they were discussing pacemaker placement earlier or not, continue on anticoagulation eliquis and metoprolol 12.5 mg twice a day, check TSH and is normal, TSH 2.2, free T4 2, FT3 2.4 2. Abnormal chest x-ray with possible multifocal pneumonia, patient does not have any symptoms of cough, no fever, we'll going to obtain pro-calcitonin level and computed tomography scan of the chest, high-resolution no contrast. Patient has a normal creatinine, has iodine ALLERGY, might need to have contrast studies down the line if needed, check ige, solumedrol for RADS, vanco zosyn 3. Hypothyroidism on Synthroid 50 g daily 4. Hyperlipidemia on Lipitor 20 mg daily 5. DVT prophylaxis patient is on maintenance "" 5. Acute transaminitis, would doubt any obstructive jaundice, possibly related to Barrientos, against cardiac causes, monitor, obtain hepatitis panel 7. Hypertension, on Lopressor 12.5 mg continue to monitor, would provide additional medication if blood pressure remains persistently high over 160 9. GI prophylaxis 8. COPD, without any symptoms if needed albuterol will be provided along with O2 9. History of basal cell carcinoma nose, inactive RADS, chronic cought with wheeze, rx ige , solumedrol, singulair
--- NOTE | 2019-06-10 16:46 | CT ---
EXAMINATION TYPE: CT chest wo con DATE OF EXAM: 06/10/2019 COMPARISON: None HISTORY: Multifocal infiltrates CT DLP: 309.9 mGycm. Automated Exposure Control for Dose Reduction was Utilized. TECHNIQUE: CT scan of the thorax is performed without IV contrast. FINDINGS: There is patchy atelectasis at the posterior lung bases. There is mild pleural thickening at the lung bases. Heart is slightly enlarged. There is no pericardial effusion. There is no mediastinal adenopa thy. Thoracic aorta is atheromatous. There is no aortic aneurysm. Ascending aorta measures 3.6 cm. Th ere is mild reticular infiltrate and atelectasis at the inferior left pulmonary hilum. There is minim al reticular density posterior left upper lobe. Bony thorax is intact. Upper abdominal soft tissues are unremarkable. IMPRESSION: Pleural reaction with scarring and atelectasis at the lung bases. Cardiomegaly. Atheroscl erotic vascular disease. No suspicious pulmonary mass. Pulmonary findings consistent with inflammator y disease.
[2019-06-10] MEDS: SODIUM CHLORIDE 0.9% 1,000 ML IV SCH (20:23)
[2019-06-10] MEDS: methylPREDNISolone SOD SUCCI 125 MG/2 ML VIAL IV SCH (20:23)
[2019-06-10] MEDS ORDERED: ATORVASTATIN 20 MG TAB PO SCH (21:00)
[2019-06-10] MEDS ORDERED: MONTELUKAST 10 MG TAB PO SCH (21:00)
[2019-06-10] MEDS: METOPROLOL TARTRATE 12.5 MG TAB PO SCH (22:44)
[2019-06-10] MEDS: APIXABAN 5 MG TAB PO SCH (22:44)
[2019-06-11] MEDS: PIPERACILLIN-TAZOBACTAM 3.375 GM in SODIUM CHLORIDE 0.9% 100 ML IVPB SCH ×2 (00:54→10:51)
[2019-06-11] MEDS: methylPREDNISolone SOD SUCCI 125 MG/2 ML VIAL IV SCH ×3 (00:54→12:13)
[2019-06-11] MEDS: SODIUM CHLORIDE 0.9% 1,000 ML IV SCH (02:16)
[2019-06-11] MEDS ORDERED: LEVOTHYROXINE 50 MCG TAB PO SCH (06:30)
[2019-06-11 07:18] VITALS: RESP 16
[2019-06-11] MEDS ORDERED: diphenhydrAMINE 50 MG CAP PO PRN (08:20)
[2019-06-11] MEDS: METOPROLOL TARTRATE 12.5 MG TAB PO SCH (08:59)
[2019-06-11] MEDS: APIXABAN 5 MG TAB PO SCH (08:59)
[2019-06-11] MEDS ORDERED: AMIODARONE 200 MG TAB PO SCH (09:00)
--- NOTE | 2019-06-11 09:06 | XR ---
EXAMINATION TYPE: XR chest 2V DATE OF EXAM: 06/11/2019 COMPARISON: 06/10/2019 HISTORY: Follow-up for pneumonia. TECHNIQUE: Frontal and lateral views of the chest are obtained. FINDINGS: Improving bibasilar opacities, atelectasis on the recent CT of 06/10/2019. Cardiomegaly is again seen. Pulmonary hyperinflation suggests underlying COPD. Generalized osseous demineralization i s present. Pleural reaction at the costophrenic angles as demonstrated on CT. IMPRESSION: Improving bibasilar opacities appear as atelectasis on the recent CT. Cardiomegaly is st able.
[2019-06-11] MEDS ORDERED: ACETAMINOPHEN TAB 325 MG TAB PO PRN (11:29)
--- NOTE | 2019-06-11 14:24 | P.CRDCN ---
History of Present Illness History of present illness: This is a pleasant 84-year-old female past medical history significant for paroxysmal atrial fibrillation on long-term anticoagulation, COPD, hypertension and hypothyroidism. She follows with Dr. Marino in the office. We have been asked to see her in consultation for palpitations. She felt weak, jittery all over and generally unwell. She states this is how she felt recently in the office with Dr. Marino and she was in a-fib. At that time he intiated her on amiodarone and increased her lopressor. She is scheduled to see her in the office tomorrow. If her a-fib was refractory to amiodarone elective cardioversion would be considered. She underwent an echo in the office at that time that revealed normal LV systolic function with EF 55%. EKG on admission to the ER revealed sinus bradycardia with first degree AV block and PAC. Chest xray showed possibly mult-focal pneumonia with right lower lung opacities. She was initiated on Zosyn. Last evening she developed a rash with severe itching and discomfort on her torso underneath her breasts and into the shoulders. Zosyn wa s immediately discontinued and Benadryl given. CT of the chest revealed inflammatory disease, pleural reaction with scarring and atelectasis at the lung bases. Ascending aorta 3.6 cm with mild reticular infiltrate at the inferior left pulmonary hilum. Repeat chest x-ray this morning reveals improving basilar opacities. Laboratory data reviewed, WBC 7.2, hemoglobin 12.6, platelets 197, sodium 139, potassium 4.6, creatinine 0.75, AST 53, ALT 68, cardiac enzymes negative 1, TSH 2.23, pro-calcitonin 0.06. Current daily cardiac medications include amiodarone 200 mg 3 times a day, Eliquis 5 mg twice a day, atorvastatin 20 mg daily and Lopressor 12.5 mg twice a day. At the time of my exam: CONSTITUTIONAL: Denies fever. Denies chills. EYES: Denies blurred vision. Denies vision changes. Denies eye pain. EARS, NOSE, MOUTH & THROAT: Denies headache. Denies sore throat. Denies ear pain. CARDIOVASCULAR: Denies chest pain. Denies shortness of breath. Denies orthopnea. Denies PND. Denies palpitations. RESPIRATORY: Denies cough. GASTROINTESTINAL: Denies abdominal pain. Denies diarrhea. Denies constipation. Denies nausea. Denies vomiting. MUSCULOSKELETAL: Denies myalgias. INTEGUMENTARY: Denies pruitis. Denies rash. NEUROLOGIC: Denies numbness. Denies tingling. Denies weakness. PSYCHIATRIC: Denies anxiety. Denies depression. ENDOCRINE: Denies fatigue. Denies weight change. Denies polydipsia. Denies polyurina. GENITOURINARY: Denies burning, hematuria or urgency with micturation. HEMATOLOGIC: Denies history of anemia. Denies bleeding. Blood pressure 148/81 heart rate 74 afebrile maintaining oxygen saturation on room air GENERAL: This is a 84-year-old female in no apparent distress at the time of my examination. HEENT: Head is atraumatic, normocephalic. Pupils are equal, round. Sclerae anicteric. Conjunctivae are clear. Mucous membranes of the mouth are moist. Neck is supple. There is no jugular venous distention. No carotid bruit is heard. LUNGS: Clear to auscultation no wheezes, rales or rhonchi. No chest wall tenderness is noted on palpation or with deep breathing. HEART: Regular rate and rhythm without murmurs, rubs or gallops. S1 and S2 heard. ABDOMEN: Soft, nontender. Bowel sounds are heard. No organomegaly noted. EXTREMITIES: No evidence of peripheral edema and no calf tenderness noted. VASCULAR: Radial and dorsalis pedis pulses palpated, no evidence of clubbing. NEUROLOGIC: Patient is awake, alert and oriented x3. ASSESSMENT Palpitations. EKG and telemetry tracings show persistent sinus mechanism with no evidence of atrial fibrillation since admission. Multifocal pneumonia Paroxysmal atrial fibrillation on long-term anticoagulation Hypertension COPD Hypothyroidism PLAN No evidence to suggest the patient is going in and out of atrial fibrillation. Telemetry tracings reveal persistent sinus mechanism. Decrease amiodarone to 200 mg twice a day for the next 2 weeks and then 200 mg daily. This has been discussed with the patient and her daughter in great detail. Lopressor and then increased to 25 mg twice a day for the previous 2 weeks however on admission the patient is mildly bradycardic. Continue Lopressor 12.5 mg twice a day. Echocardiogram obtained in the office 2 weeks ago has been reviewed and reveals normal LV systolic function. Clinically the patient is euvolemic with no evidence to suggest fluid overload. Stable from a cardiac perspective. Follow-up with Dr. Marino as previously established. Thank you kindly for this consultation. Nurse Practitioner note has been reviewed, I agree with a documented findings and plan of care. Patient was seen and examined. 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,UTIs History of Any Multi-Drug Resistant Organisms: MRSA Date of last positivie culture/infection: 03/21/2017 MDRO Source:: left buttock/left labia Past Surgical History: Appendectomy, Tonsillectomy Additional Past Surgical History / Comment(s): Varicose vein stripping, bilateral cataract removal and intraocular lens implants, skin biopsies and skin cancer removal, breast lumpectomy, I&D 03/15/17 and 03/21/17 of left buttock and left labia Past Anesthesia/Blood Transfusion Reactions: Family History of Problems w/ Anesthesia, Postoperative Nausea & Vomiting (PONV) Additional Past Anesthesia/Blood Transfusion Reaction / Comment(s): family hx of n/v with anesthesia.No hx blood transfusion Past Psychological History: No Psychological Hx Reported Smoking Status: Never smoker Past Alcohol Use History: Rare Past Drug Use History: None Reported - Past Family History Mother Family Medical History: AICD/Pacemaker, CVA/TIA, Thyroid Disorder Father Family Medical History: Cancer, COPD, GI Bleed Sister(s) Family Medical History: Cancer Additional Family Medical History / Comment(s): breast Daughter(s) Family Medical History: Cancer Additional Family Medical History / Comment(s): thyroid. granddtr-thyroid ca Medications and Allergies Home Medications Medication Instructions Recorded Confirmed Type Levothyroxine Sodium [Synthroid] 50 mcg PO QAM 03/21/17 06/10/19 History Apixaban [Eliquis] 5 mg PO BID #1 tab 03/27/17 06/10/19 Rx Multivitamins, Thera [Multivitamin 1 tab PO DAILY 05/16/17 06/10/19 History (formulary)] Atorvastatin [Lipitor] 20 mg PO HS 05/28/19 06/10/19 History Metoprolol Tartrate [Lopressor] 12.5 mg PO BID 05/28/19 06/10/19 History Omeprazole [PriLOSEC] 40 mg PO DAILY 05/28/19 06/10/19 History Amiodarone [Cordarone] 200 mg PO BID #60 tab 06/11/19 Rx Montelukast [Singulair] 10 mg PO HS #30 tab 06/11/19 Rx predniSONE 20 mg PO BID #10 tab 06/11/19 Rx Allergies Allergy/AdvReac Type Severity Reaction Status Date / Time iodine Allergy Unknown Unknown Verified 06/10/19 13:36 morphine Allergy Unknown Unknown Verified 06/10/19 13:36 aloe Allergy Unknown Verified 06/10/19 13:36 codeine Allergy Unknown Verified 06/10/19 13:36 latex Allergy Unknown Verified 06/10/19 13:36 piperacillin [From Zosyn] Allergy Rash/Hives Verified 06/11/19 13:16 Sulfa (Sulfonamide Allergy Unknown Verified 06/10/19 13:36 Antibiotics) tazobactam [From Zosyn] Allergy Rash/Hives Verified 06/11/19 13:16 Physical Exam Vitals: Vital Signs Temp Pulse Pulse Resp BP BP Pulse Ox 06/11/19 07:00 98.1 F 74 16 148/81 94 L 06/11/19 01:52 97.8 F 59 L 18 113/63 92 L 06/10/19 21:38 97.9 F 60 18 124/76 96 06/10/19 18:10 61 20 146/76 97 06/10/19 18:00 61 20 146/76 06/10/19 17:30 61 11 L 149/72 06/10/19 17:00 56 L 11 L 144/99 06/10/19 16:30 58 L 18 134/58 06/10/19 16:00 58 L 18 167/85 06/10/19 15:59 61 18 155/83 06/10/19 15:30 61 18 155/83 06/10/19 15:00 60 16 144/79 06/10/19 14:30 58 L 17 141/75 06/10/19 14:14 54 L 13 146/70 06/10/19 14:00 54 L 13 146/70 06/10/19 13:30 53 L 13 146/64 06/10/19 13:05 55 L 9 L 144/72 06/10/19 13:00 55 L 9 L 144/72 06/10/19 12:50 55 L 7 L 144/72 06/10/19 12:40 57 L 12 141/86 06/10/19 12:30 57 L 15 144/75 06/10/19 12:20 56 L 15 144/75 06/10/19 12:10 56 L 13 144/75 06/10/19 12:04 56 L 18 06/10/19 11:45 98.2 F 60 18 139/76 95 Intake and Output 06/10/19 06/11/19 06/11/19 22:59 06:59 14:59 Other: Voiding Method Toilet # Voids 2 Results 06/10/19 12:00 06/10/19 12:00 Cardiac Enzymes 06/10/19 06/10/19 Range/Units 12:00 12:00 AST 53 H (14-36) U/L Troponin I <0.012 (0.000-0.034) ng/mL Coagulation 06/10/19 Range/Units 12:00 PT 10.9 (9.0-12.0) sec APTT 26.7 (22.0-30.0) sec CBC 06/10/19 Range/Units 12:00 WBC 7.2 (3.8-10.6) k/uL RBC 4.15 (3.80-5.40) m/uL Hgb 12.6 (11.4-16.0) gm/dL Hct 38.7 (34.0-46.0) % Plt Count 197 (150-450) k/uL Comprehensive Metabolic Panel 06/10/19 Range/Units 12:00 Sodium 139 (137-145) mmol/L Potassium 4.6 (3.5-5.1) mmol/L Chloride 103 (98-107) mmol/L Carbon Dioxide 25 (22-30) mmol/L BUN 20 H (7-17) mg/dL Creatinine 0.75 (0.52-1.04) mg/dL Glucose 88 (74-99) mg/dL Calcium 9.3 (8.4-10.2) mg/dL AST 53 H (14-36) U/L ALT 68 H (9-52) U/L Alkaline Phosphatase 112 (38-126) U/L Total Protein 7.3 (6.3-8.2) g/dL Albumin 4.2 (3.5-5.0) g/dL Current Medications Generic Name Dose Route Start Last Admin Trade Name Bookerq PRN Reason Stop Dose Admin Apixaban 5 mg 06/10/19 21:00 06/10/19 22:44 Eliquis PO 5 mg BID BLANCA Administration Atorvastatin Calcium 20 mg 06/10/19 21:00 06/10/19 22:44 Lipitor PO 20 mg HS BLANCA Administration Diphenhydramine HCl 50 mg 06/11/19 08:20 Benadryl PO QID PRN Allergic Reaction Levofloxacin 750 mg/ IV 150 mls @ 100 mls/hr 06/11/19 20:00 Solution IVPB 06/23/19 20:01 Q24H BLANCA Sodium Chloride 1,000 mls @ 100 mls/hr 06/10/19 16:00 06/11/19 02:16 Saline 0.9% IV Not Given .Q10H BLANCA Levothyroxine Sodium 50 mcg 06/11/19 06:30 06/11/19 05:36 Synthroid PO 50 mcg QAM@0630 BLANCA Administration Methylprednisolone Sodium Succinate 60 mg 06/10/19 18:00 06/11/19 05:36 Solu-Medrol IV 60 mg Q6HR BLANCA Administration Metoprolol Tartrate 12.5 mg 06/10/19 21:00 06/10/19 22:44 Lopressor PO 12.5 mg BID BLANCA Administration Miscellaneous Information 1 each 06/10/19 15:59 Pneumonia Protocol Utilized PO ONCE PRN Per Protocol Montelukast Sodium 10 mg 06/10/19 21:00 06/10/19 22:44 Singulair PO 10 mg HS BLANCA Administration Intake and Output 06/10/19 06/11/19 06/11/19 22:59 06:59 14:59 Other: Voiding Method Toilet # Voids 2 06/10/19 12:00 06/10/19 12:00
[2019-06-11 14:56] VITALS: BP 124/79; PULSE 65; TEMP 97.7
[2019-06-11] MEDS ORDERED: methylPREDNISolone SOD SUCCI 40 MG/ML 1 ML VIAL IV SCH (16:00)
--- NOTE | 2019-06-11 16:03 | P.DS ---
Providers Date of admission: 06/10/19 15:59 Expected date of discharge: 06/11/19 Attending physician: Colette August Consults: 06/10/19 15:59 Consult Physician Routine Consulting Provider: Nate Marino Consult Reason/Comments: Palpitations, A. fib history, bradycardia Do you want consulting provider notified?: Yes Primary care physician: Mark Faulkner Hospital Course: This is a pleasant 84-year-old lady patient of Dr. Faulkner. She has underlying history of atrial fibrillation hypertension COPD also arthritis, basal cell, hypothyroidism, admitted to the hospital secondary to palpitations, and was sent in after phone consult with Dr. JD Marino's office for evaluation. Patient has had symptoms of palpitations, for the past several days, , no chest pressure, she had several medication changes lately, and was subsequently sent to the emergency room for further evaluation. Patient denies any fever no chills, patient denies any hematuria dysuria or melena, no aspirative evnets, no recent foreign travels. 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 Benadryl ordered and Zosyn discontinued. Pro-calcitonin came back at 0.06 and Levaquin will be discontinued as well. Patient has been seen by cardiology and amiodarone 200 mg twice daily was started and patient continued on Lopressor 12.5 mg twice daily. 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 CAT scan of the chest revealed pleural reaction with scarring and atelectasis at the lung bases. Cardiomegaly. Atherosclerotic vascular disease. No suspicious pulmo nary mass. Pulmonary findings consistent with inflammatory disease. Repeat chest x-ray reveals improving bibasilar opacities appear as atelectasis. Incentive spirometry added. Solu-Medrol will be transitioned to oral prednisone. Patient will be discharged home today in stable condition. Discharge diagnoses: 1. Palpitations, without atrial fibrillation 2. Abnormal chest x-ray with possible multifocal pneumonia ruled out 3. Hypothyroidism 4. Hyperlipidemia 5. Hypertension 6. Acute transaminitis 7. Paroxysmal atrial fibrillation. 8. COPD, without any symptoms 9. History of basal cell carcinoma nose, inactive 10. Reactive airway disease, chronic. Discharge plan: Home Impression and plan of care have been directed as dictated by the signing ph ysician. Lenora Fernandez nurse practitioner acting as scribe for signing physician. Patient Condition at Discharge: Good Plan - Discharge Summary New Discharge Prescriptions: New Amiodarone [Cordarone] 200 mg PO BID #60 tab Montelukast [Singulair] 10 mg PO HS #30 tab predniSONE 20 mg PO BID #10 tab Continue Levothyroxine Sodium [Synthroid] 50 mcg PO QAM Apixaban [Eliquis] 5 mg PO BID #1 tab Multivitamins, Thera [Multivitamin (formulary)] 1 tab PO DAILY Omeprazole [PriLOSEC] 40 mg PO DAILY Atorvastatin [Lipitor] 20 mg PO HS Metoprolol Tartrate [Lopressor] 12.5 mg PO BID Discharge Medication List Levothyroxine Sodium [Synthroid] 50 mcg PO QAM 03/21/17 [History] Apixaban [Eliquis] 5 mg PO BID #1 tab 03/27/17 [Rx] Multivitamins, Thera [Multivitamin (formulary)] 1 tab PO DAILY 05/16/17 [History] Atorvastatin [Lipitor] 20 mg PO HS 05/28/19 [History] Metoprolol Tartrate [Lopressor] 12.5 mg PO BID 05/28/19 [History] Omeprazole [PriLOSEC] 40 mg PO DAILY 05/28/19 [History] Amiodarone [Cordarone] 200 mg PO BID #60 tab 06/11/19 [Rx] Montelukast [Singulair] 10 mg PO HS #30 tab 06/11/19 [Rx] predniSONE 20 mg PO BID #10 tab 06/11/19 [Rx] Follow up Appointment(s)/Referral(s): Nate Marino MD [STAFF PHYSICIAN] - 06/13/19 8:30 am Mark Faulkner MD [Primary Care Provider] - 06/24/19 10:30 am Abebe Marino MD [STAFF PHYSICIAN] - 06/19/19 10:15 am (Do nOt need to come in on 06/13) Activity/Diet/Wound Care/Special Instructions: Please call #[phone] for possible assistance with Lizzie merritt. Discharge Disposition: HOME SELF-CARE
[2019-06-11] MEDS ORDERED: INSULIN ASPART (NovoLOG) 100 UNIT/ML VIAL SQ SCH (17:30)
[2019-06-11] MEDS ORDERED: LEVOFLOXACIN 750MG-D5W PMX 750 MG in DEXTROSE/WATER 1 150ML.BAG IVPB SCH (20:00)
== END 2019-06-11 15:30 | disposition home or self-care (01) | DRG 309 ==
LOC: EC 11:33 → 4SSUR 15:59
PROVIDERS: ADMIT Family Medicine; ATTEND Family Medicine
DX: R00.2 Palpitations (principal); J98.11 Atelectasis; E03.9 Hypothyroidism, unspecified; E78.5 Hyperlipidemia, unspecified; I10 Essential (primary) hypertension; I44.0 Atrioventricular block, first degree; I48.0 Paroxysmal atrial fibrillation; J44.9 Chronic obstructive pulmonary disease, unspecified; L27.0 Generalized skin eruption due to drugs and medicaments taken internally; T36.0X5A Adverse effect of penicillins, initial encounter; Y92.230 Patient room in hospital as the place of occurrence of the external cause; K21.9 Gastro-esophageal reflux disease without esophagitis; Z79.01 Long term (current) use of anticoagulants; Z79.890 Hormone replacement therapy; Z79.899 Other long term (current) drug therapy; Z80.8 Family history of malignant neoplasm of other organs or systems; Z82.5 Family history of asthma and other chronic lower respiratory diseases; Z85.828 Personal history of other malignant neoplasm of skin; Z98.42 Cataract extraction status, left eye; Z98.41 Cataract extraction status, right eye; Z96.1 Presence of intraocular lens; M19.90 Unspecified osteoarthritis, unspecified site; Z80.3 Family history of malignant neoplasm of breast; Z83.79 Family history of other diseases of the digestive system; Z82.3 Family history of stroke; Z82.49 Family history of ischemic heart disease and other diseases of the circulatory system; Z60.2 Problems related to living alone; Z88.5 Allergy status to narcotic agent; Z88.0 Allergy status to penicillin; Z88.2 Allergy status to sulfonamides; Z88.8 Allergy status to other drugs, medicaments and biological substances; Z91.040 Latex allergy status; Z87.440 Personal history of urinary (tract) infections; I49.1 Atrial premature depolarization
CPT/HCPCS: 36415; 71046; 71250; 80053; 82550; 82785; 83735; 84145; 84439; 84443; 84481; 84484; 85025; 85610; 85730; 87040; 93005; 96365; 96366; 96367; 96375; 99285

== ENCOUNTER → 2019-06-20 | Outpatient (CLI) | payer MEDICARE ==
--- NOTE | 2019-06-20 16:01 | CT ---
EXAMINATION TYPE: CT chest wo con DATE OF EXAM: 06/20/2019 COMPARISON: 06/10/2019 HISTORY: Pt c/o SOB, CHAPARRO upon exertion. Cough, asthma, COPD to be evaluated CT DLP: 210.70 mGycm. Automated Exposure Control for Dose Reduction was Utilized. TECHNIQUE: CT scan of the thorax is performed without IV contrast. FINDINGS: LUNGS: The lungs are grossly clear, there is no concerning parenchymal mass or nodule identified. T here is no pleural effusion or pneumothorax seen. The tracheobronchial tree is patent. Subsegmental changes are seen involving both lung bases. There is mild hyperexpansion. Basilar bronchiectasis note d. On the posterior margin of the heart there is subsegmental areas of consolidation. MEDIASTINUM: Lack of IV contrast is noted to limit evaluation for mediastinal and especially hilar ad enopathy. There are no definitive greater than 1 cm hilar or mediastinal lymph nodes. Atherosclerotic change of the aorta and mild atherosclerotic changes of the coronary arteries. The heart is enlarged .. OTHER: Hypertrophic and degenerative change of the spine. Multiple tiny gallstone suspected. Nodular contour to the pancreatic tail. Hypodensity within the left lobe of the liver is indeterminate by non contrast technique and could be correlated with ultrasound. Measures approximately 12 mm. IMPRESSION: 1. Mild basilar bronchiectasis with subsegmental atelectasis or scar noted. No diagnostic evidence of pneumonia. 2. Cardiomegaly with mild changes of coronary artery atherosclerotic disease. 3. Mild hyperinflation of the lung bases may been the basis of asthma or mild COPD. 4. Suspect multiple tiny gallstones. 5. Somewhat nodular contour to the tail the pancreas which is only partially included in the exam. Re commend follow-up ultrasound. 6. There is a 1.2 cm left lobe hepatic lesion measuring 30 Hounsfield units which does not meet the c riteria of a simple cyst. Ultrasound recommended.
== END | disposition home or self-care (01) ==
LOC: RADCTMAIN 15:13
PROVIDERS: ATTEND Internal Medicine Pulmonary Disease
DX: J47.9 Bronchiectasis, uncomplicated (principal); I51.7 Cardiomegaly; I25.10 Atherosclerotic heart disease of native coronary artery without angina pectoris; J44.9 Chronic obstructive pulmonary disease, unspecified; I48.91 Unspecified atrial fibrillation; K44.9 Diaphragmatic hernia without obstruction or gangrene; J84.9 Interstitial pulmonary disease, unspecified
CPT/HCPCS: 71250

== ENCOUNTER → 2019-08-14 | Outpatient (CLI) | payer MEDICARE ==
[2019-08-14 09:00] LABS: HGB 13.6 gm/dL (11.4-16.0); MCH 30.5 pg (25.0-35.0); MCHC 32.3 g/dL (31.0-37.0); MCV 94.3 fL (80.0-100.0); Mean Platelet Volume 7.6; Platelet Count 223 k/uL (150-450); RBC 4.46 m/uL (3.80-5.40); RDW 14.6 % (11.5-15.5); WBC 5.3 k/uL (3.8-10.6)
[2019-08-14 09:09] LABS: Potassium 4.5 mmol/L (3.5-5.1)
== END | disposition home or self-care (01) ==
LOC: LABPAT 08:00
PROVIDERS: ATTEND Internal Medicine Interventional Cardiology
DX: Z01.812 Encounter for preprocedural laboratory examination (principal); I48.19 Other persistent atrial fibrillation
CPT/HCPCS: 80051; 82565; 82947; 84520; 85027

== ENCOUNTER 2019-08-26 09:51 | Day surgery (SDC) | payer MEDICARE ==
[2019-08-22 18:06] VITALS: BMI 27.6
[~2019-08-26 09:51] MED LIST changes: -LIDOCAINE 1% 20 ML VIAL (10MG/ML) FOR IV START INTRADERMA ONE; +LIDOCAINE 1% 20 ML VIAL (10MG/ML) FOR IV START INTRADERMA PRN; -ONDANSETRON 4 MG/2 ML VIAL IVP ONE; -PROPOFOL 10 MG/ML 20 ML VIAL IV ONE; +SODIUM CHLORIDE 0.9% 1,000 ML IV SCH
[2019-08-26 10:17] VITALS: BP 164/78; PULSE 57; RESP 16; TEMP 98.3
== END 2019-08-26 10:53 | disposition home or self-care (01) ==
LOC: CATHCVL 09:51
PROVIDERS: ATTEND Internal Medicine Interventional Cardiology
DX: I48.19 Other persistent atrial fibrillation (principal); Z53.8 Procedure and treatment not carried out for other reasons; I10 Essential (primary) hypertension; E78.00 Pure hypercholesterolemia, unspecified; E03.9 Hypothyroidism, unspecified; Z82.49 Family history of ischemic heart disease and other diseases of the circulatory system; Z79.01 Long term (current) use of anticoagulants; Z79.890 Hormone replacement therapy; Z79.899 Other long term (current) drug therapy; Z88.5 Allergy status to narcotic agent; Z88.0 Allergy status to penicillin; Z88.2 Allergy status to sulfonamides; Z91.048 Other nonmedicinal substance allergy status

== ENCOUNTER → 2019-08-30 | Outpatient (CLI) | payer MEDICARE ==
--- NOTE | 2019-08-30 08:59 | US ---
EXAMINATION TYPE: US gallbladder DATE OF EXAM: 08/30/2019 COMPARISON: CT chest dated 06/20/2019 CLINICAL HISTORY: R10.11 RUQ Abd pain. Patient was asymptomatic at the time of examination. EXAM MEASUREMENTS: Liver Length: 14.7 cm Gallbladder Wall: 0.2 cm CBD: 0.3 cm Right Kidney: 9.2 x 3.9 x 3.9 cm Pancreas: tail obscured by overlying midline bowel gas Liver: Within normal limits, no definite lesions seen at this time Gallbladder: wnl Evidence for sonographic Pereira's sign: no CBD: visualized portions wnl, limited by overlying bowel gas Right Kidney: No hydronephrosis or nephrolithiasis. IMPRESSION: 1. No sonographic evidence of cholelithiasis nor acute cholecystitis. 2. The 1.2 cm left hepatic lobe lesion seen on the CT of 06/20/2019 is not definitely on ultrasound. Th ree-phase enhanced CT is recommended for further evaluation as this appears solid in nature on the pr ior CT.
== END | disposition home or self-care (01) ==
LOC: RADUSWWP 08:12
PROVIDERS: ATTEND Surgery Plastic and Reconstructive Surgery
DX: R10.11 Right upper quadrant pain (principal); Z88.5 Allergy status to narcotic agent; Z88.3 Allergy status to other anti-infective agents; Z88.2 Allergy status to sulfonamides
CPT/HCPCS: 76705

== ENCOUNTER 2019-12-05 07:47 | Day surgery (SDC) | payer MEDICARE ==
[2019-12-03 17:55] VITALS: BMI 27.4
--- NOTE | 2019-12-05 07:21 | P.GSHP ---
History of Present Illness H&P Date: 12/05/19 CHIEF COMPLAINT: Colon screen HISTORY OF PRESENT ILLNESS: The patient is a 84-year-old female who presents for colon screen. Lower endoscopy was offered for further evaluation and management. PAST MEDICAL HISTORY: Please see list. PAST SURGICAL HISTORY: Please see list. MEDICATIONS: Please see list. ALLERGIES: Please see list. SOCIAL HISTORY: No illicit drug use FAMILY HISTORY: No reports of Crohn disease or ulcerative colitis. REVIEW OF ORGAN SYSTEMS: CONSTITUTIONAL: No reports of fevers or chills. PHYSICAL EXAM: VITAL SIGNS: Stable GENERAL: Well-developed pleasant in no acute distress. HEENT: No scleral icterus. Extraocular movements grossly intact. Moist buccal mucosa. NECK: Supple without lymphadenopathy. CHEST: Unlabored respirations. Equal bilateral excursions. CARDIOVASCULAR: Regular rate and rhythm. Distal 2+ pulses. ABDOMEN: Soft, nontender, nondistended. MUSCULOSKELETAL: No clubbing, cyanosis, or edema. ASSESSMENT: 1. Colon screen. PLAN: 1. Recommend proceeding with a lower endoscopy Past Medical History Past Medical History: Atrial Fibrillation, Cancer, COPD, GERD/Reflux, Hypertension, Osteoarthritis (OA), Thyroid Disorder Additional Past Medical History / Comment(s): hiatal hernia, Cystic breasts, basal cell carcinoma from nose, squamous cell carcinoma from forearm, UTIs, varicose veins. History of Any Multi-Drug Resistant Organisms: MRSA Date of last positivie culture/infection: 03/21/2017 MDRO Source:: left buttock/left labia Past Surgical History: Appendectomy, Breast Surgery, Tonsillectomy Additional Past Surgical History / Comment(s): Varicose vein stripping, bilateral cataract removal and intraocular lens implants, skin biopsies and skin cancer removal, sissy breast lumpectomy/cyst exc, I&D 03/15/17 and 03/21/17 of left buttock and left labia, Colonoscopy Past Anesthesia/Blood Transfusion Reactions: Family History of Problems w/ Anesthesia, Motion Sickness, Postoperative Nausea & Vomiting (PONV) Additional Past Anesthesia/Blood Transfusion Reaction / Comment(s): family hx of n/v with anesthesia. No hx blood transfusion Smoking Status: Never smoker - Past Family History Mother Family Medical History: AICD/Pacemaker, CVA/TIA, Thyroid Disorder Father Family Medical History: Cancer, COPD, GI Bleed Sister(s) Family Medical History: Cancer Additional Family Medical History / Comment(s): breast Daughter(s) Family Medical History: Cancer Additional Family Medical History / Comment(s): thyroid. granddtr-thyroid ca Medications and Allergies Home Medications Medication Instructions Recorded Confirmed Type Levothyroxine Sodium [Synthroid] 50 mcg PO QAM 03/21/17 12/03/19 History Apixaban [Eliquis] 5 mg PO BID #1 tab 03/27/17 12/03/19 Rx Multivitamins, Thera [Multivitamin 1 tab PO DAILY 05/16/17 12/03/19 History (formulary)] Atorvastatin [Lipitor] 20 mg PO DAILY 05/28/19 12/03/19 History Metoprolol Tartrate [Lopressor] 25 mg PO BID 05/28/19 12/03/19 History Omeprazole [PriLOSEC] 40 mg PO DAILY 05/28/19 12/03/19 History Vit C/E/Zn/Coppr/Lutein/Zeaxan 1 each PO BID 08/22/19 12/03/19 History [Preservision Areds 2 Softgel] Acetaminophen [Tylenol Extra 500 - 1,000 mg PO DIRECTED PRN 12/03/19 12/03/19 History Strength] Amiodarone [Cordarone] 200 mg PO DAILY 12/03/19 12/03/19 History Allergies Allergy/AdvReac Type Severity Reaction Status Date / Time iodine Allergy Unknown Unknown Verified 12/03/19 17:30 morphine Allergy Unknown Unknown Verified 12/03/19 17:30 aloe Allergy Unknown Verified 12/03/19 17:30 codeine Allergy Unknown Verified 12/03/19 17:30 latex Allergy possible Verified 12/03/19 17:30 rash piperacillin [From Zosyn] Allergy Rash/Hives Verified 12/03/19 17:30 Sulfa (Sulfonamide Allergy Unknown Verified 12/03/19 17:30 Antibiotics) tazobactam [From Zosyn] Allergy Rash/Hives Verified 12/03/19 17:30
[~2019-12-05 07:47] MED LIST changes: -SODIUM CHLORIDE 0.9% 1,000 ML IV SCH
[2019-12-05 08:17] VITALS: TEMP 98
[2019-12-05] MEDS ORDERED: LIDOCAINE 1% INJ 10MG/ML (20 ML MDV) ONE (08:26)
[2019-12-05] MEDS ORDERED: PROPOFOL 10 MG/ML 20 ML VIAL IV ONE (08:26)
[2019-12-05 08:55] VITALS: PULSE 50
--- NOTE | 2019-12-05 09:00 | P.PCN ---
Date of Procedure: 12/05/19 Description of Procedure: PREOPERATIVE DIAGNOSIS: Family history colon polyps Colonoscopy screening POSTOPERATIVE DIAGNOSIS: Family history colon polyps Colonoscopy screening Tubular adenoma ascending colon Sigmoid diverticulosis External hemorrhoids OPERATION: Colonoscopy to the ileocecal valve and appendiceal orifice. Colonoscopy with hot snare polypectomy SURGEON: Kylee Starks MD. ANESTHESIA: MAC. INDICATIONS: The patient is an 84-year-old female who presents to family history of colon jose yps and colon screening. Last colonoscopy over 5 years. Benefits and risks were described and informed consent was obtained. DESCRIPTION OF PROCEDURE: The patient had undergone Suprep. She had been brought into the operating room and laid in the left lateral decubitus position. After adequate intravenous sedation, the rectum was examined with 2% lidocaine jelly. External hemorrhoids were encountered. The rectal tone was within normal limits. No lesions were palpated in the rectal vault. An Olympus colonoscope was advanced until the ileocecal valve and appendiceal orifice were clearly viewed. The prep was excellent. Sigmoid diverticulosis was encountered. Ascending colon adenoma was snare polypectomy. No evidence of focal colitis was found. Retroflexion of the scope demonstrated grade 2 internal hemorrhoids without active bleeding or inflammation. The colon was desufflated. The patient had tolerated the procedure well. Withdrawal time was over 6 minutes. FINDINGS: Aronchick preparation quality scale 1 (1-5) Internal hemorrhoids, grade 2 External hemorrhoids, grade 3. No arteriovenous malformations. Sigmoid diverticulosis No evidence of fistulous tract Removal of 1 polyp: - Snare polypectomy ascending colon, 8 mm polyp. No focal colitis. RECOMMENDATIONS: Repeat colonoscopy 3 years, 2022 Plan - Discharge Summary Discharge Rx Participant: No New Discharge Prescriptions: Continue Levothyroxine Sodium [Synthroid] 50 mcg PO QAM Apixaban [Eliquis] 5 mg PO BID #1 tab Multivitamins, Thera [Multivitamin (formulary)] 1 tab PO DAILY Omeprazole [PriLOSEC] 40 mg PO DAILY Atorvastatin [Lipitor] 20 mg PO DAILY Metoprolol Tartrate [Lopressor] 25 mg PO BID Vit C/E/Zn/Coppr/Lutein/Zeaxan [Preservision Areds 2 Softgel] 1 each PO BID Acetaminophen [Tylenol Extra Strength] 500 - 1,000 mg PO DIRECTED PRN PRN Reason: Pain Amiodarone [Cordarone] 200 mg PO DAILY Discharge Medication List Levothyroxine Sodium [Synthroid] 50 mcg PO QAM 03/21/17 [History] Apixaban [Eliquis] 5 mg PO BID #1 tab 03/27/17 [Rx] Multivitamins, Thera [Multivitamin (formulary)] 1 tab PO DAILY 05/16/17 [History] Atorvastatin [Lipitor] 20 mg PO DAILY 05/28/19 [History] Metoprolol Tartrate [Lopressor] 25 mg PO BID 05/28/19 [History] Omeprazole [PriLOSEC] 40 mg PO DAILY 05/28/19 [History] Vit C/E/Zn/Coppr/Lutein/Zeaxan [Preservision Areds 2 Softgel] 1 each PO BID 08/22/19 [History] Acetaminophen [Tylenol Extra Strength] 500 - 1,000 mg PO DIRECTED PRN 12/03/19 [History] Amiodarone [Cordarone] 200 mg PO DAILY 12/03/19 [History] Follow up Appointment(s)/Referral(s): Kylee Starks MD [STAFF PHYSICIAN] - 12/24/19 Patient Instructions/Handouts: Diverticulosis Diet (GEN), Diverticulosis (GEN), Colorectal Polyps (IP) Activity/Diet/Wound Care/Special Instructions: Repeat colonoscopy in 5 years, 2024 Discharge Disposition: HOME SELF-CARE
[2019-12-05 09:09] VITALS: BP 119/76; RESP 18
== END 2019-12-05 09:45 | disposition home or self-care (01) ==
LOC: ORWHC2ENDO 07:47
PROVIDERS: ATTEND Surgery Plastic and Reconstructive Surgery
DX: D12.2 Benign neoplasm of ascending colon (principal); K57.30 Diverticulosis of large intestine without perforation or abscess without bleeding; K64.4 Residual hemorrhoidal skin tags; Z83.71 Family history of colonic polyps; I48.91 Unspecified atrial fibrillation; K21.9 Gastro-esophageal reflux disease without esophagitis; K64.1 Second degree hemorrhoids; J44.9 Chronic obstructive pulmonary disease, unspecified; E07.9 Disorder of thyroid, unspecified; Z88.0 Allergy status to penicillin; Z88.2 Allergy status to sulfonamides; Z88.5 Allergy status to narcotic agent; Z87.440 Personal history of urinary (tract) infections; Z91.041 Radiographic dye allergy status; Z91.040 Latex allergy status; Z86.14 Personal history of Methicillin resistant Staphylococcus aureus infection; Z79.01 Long term (current) use of anticoagulants; Z79.890 Hormone replacement therapy; Z79.899 Other long term (current) drug therapy; Z98.41 Cataract extraction status, right eye; Z98.42 Cataract extraction status, left eye; Z96.1 Presence of intraocular lens; Z85.828 Personal history of other malignant neoplasm of skin; Z90.49 Acquired absence of other specified parts of digestive tract; Z90.89 Acquired absence of other organs; Z98.890 Other specified postprocedural states; Z83.6 Family history of other diseases of the respiratory system; Z82.49 Family history of ischemic heart disease and other diseases of the circulatory system; Z80.3 Family history of malignant neoplasm of breast; Z83.79 Family history of other diseases of the digestive system; Z80.8 Family history of malignant neoplasm of other organs or systems
CPT/HCPCS: 88305; 45385; J2001; J2704

== ENCOUNTER → 2020-11-19 | Outpatient (CLI) | payer MEDICARE ==
--- NOTE | 2020-11-19 15:49 | BD ---
EXAMINATION TYPE: Axial Bone Density DATE OF EXAM: 11/19/2020 COMPARISON: 07.12.2017 CLINICAL HISTORY: 85 YR OLD FEMALE....ICD-10 CODE: M81.0 OSTEOPOROSIS Height: 61.4 Weight: 163 FRAX RISK QUESTIONS: NOTHING TO NOTE HERE RISK FACTORS HISTORY OF: Postmenopausal woman: YES, 52 YRS OLD Lost more than 2 inches in height since high school: YES Frequent falls: ELDERLY Hyperparathyroidism: NO Adrenal Insufficiency: NO MEDICATIONS: Thyroid Medications: YES, SYNTHROID, FOR ABOUT 10 YRS Additional Medications: BP MEDS, REFLUX MEDS, STATIN FOR CHOLESTEROL, Additional History: HYPERTENSION, REFLUX, CHOLESTEROL. EXAM MEASUREMENTS: Bone mineral densitometry was performed using the [employer] System. Bone mineral density as measured about the Lumbar spine is: ----- L1-L4(G/cm2): 0.997 T Score Values are as follows: ----- L1: -2.0 ----- L2: -1.7 ----- L3: -1.3 ----- L4: -1.3 ----- L1-L4: -1.5 Bone mineral density has: Increased 0.4% since study of: 07.12.2017 Bone mineral density about the R hip (g/cm2): 0.831 Bone mineral density about the L hip (g/cm2): 0.865 T Score values are as follows: -----R Neck: -1.9 -----L Neck: -2.1 -----R Total: -1.4 -----L Total: -1.1 Bone mineral density has: Decreased -1.6% since study of: 07.12.2017 FRAX%s: THERE IS A 16.0% CHANCE FOR A MAJOR OSTEOPOROTIC FX AND A 5.1% FOR HIP......PROBABILITY FOR FX IN 10 YRS TIME IMPRESSION: Osteopenia (T Score between -2.5 and -1). There is slightly increased risk of fracture and the patient may be considered for treatment. Re-Screen 2-5 years. NOTE: T-SCORE=SD OF THE YOUNG ADULT MEAN.
== END | disposition home or self-care (01) ==
LOC: RADBDWWP 08:52
PROVIDERS: ATTEND Internal Medicine
DX: M85.80 Other specified disorders of bone density and structure, unspecified site (principal)
CPT/HCPCS: 77080

== ENCOUNTER → 2021-01-06 | Outpatient (CLI) | payer MEDICARE ==
--- NOTE | 2021-01-06 15:11 | XR ---
EXAMINATION TYPE: XR lumbar spine 2 or 3V DATE OF EXAM: 01/06/2021 COMPARISON: None HISTORY: Aching pain while standing TECHNIQUE: 3 view lumbar spine FINDINGS: There are 5 lumbar type to bodies. The pedicles are intact. There is scoliosis with convexi ty to the right. Degenerative loss of disc height is present L5-S1 and posteriorly at L4-5. Remaining disc heights and vertebral body heights are preserved. Vascular calcifications noted within the aort a. IMPRESSION: 1. Degenerative disc changes lower lumbar spine.
== END | disposition home or self-care (01) ==
LOC: RADXRMAIN 12:33
PROVIDERS: ATTEND Internal Medicine
DX: M47.16 Other spondylosis with myelopathy, lumbar region (principal)
CPT/HCPCS: 72100

== ENCOUNTER → 2021-03-11 | Outpatient (CLI) | payer MEDICARE ==
--- NOTE | 2021-03-11 10:34 | CT ---
EXAMINATION TYPE: CT hip LT wo con DATE OF EXAM: 03/11/2021 COMPARISON: Pelvic x-ray May 26, 2017 HISTORY: Contusion injury Lt hip with pain, possible fracture. CT DLP: 316.3 mGycm Automated exposure control for dose reduction was used. FINDINGS: Osseous structures are demineralized. There is acute or subacute comminuted fracture through the left superior pelvic ramus extending to level of the pubic symphysis without abnormal widening. There is anterior ossification or ossific density suspected attempted healing corresponding to subacute fractu re. Similar finding seen involving the left inferior pelvic ramus mid aspect near axial image 41. Sma ll to moderate-sized adjacent 3.7 x 2.8 cm hematoma causes some mass effect along the inferior anteri or aspect of the bladder. There is additional 2.7 x 2.0 cm slightly more superior and anterior left g roin hematoma along the lateral aspect of the distal rectus sheath. No acute fracture or dislocation in the left hip and proximal femur. Moderate axial joint space loss with mild acetabular spurring. No groin hernia or adenopathy. Muscle bulk left thyroid maintained. No suspicious joint effusion. Sigmoid colonic diverticula. Scattered tiny bilateral pelvic phleboliths. IMPRESSION: Subacute or healing comminuted fractures of the left superior and inferior pelvic rami. S uperior fracture shows 2 small adjacent pelvic hematomas and fracture line extends to the pubic symph ysis without abnormal widening. No acute or subacute fracture in the left hip noted.
== END | disposition home or self-care (01) ==
LOC: RADCTMAIN 07:57
PROVIDERS: ATTEND Orthopaedic Surgery Sports Medicine
DX: S32.592A Other specified fracture of left pubis, initial encounter for closed fracture (principal)

== ENCOUNTER 2021-03-12 08:25 | Inpatient (IN) | payer MEDICARE ==
[2021-03-12] MEDS ORDERED: HYDROmorphone 0.5 MG/0.5 ML SYRINGE IM STA (08:46)
--- NOTE | 2021-03-12 09:59 | ED ---
Back Pain HPI - General Source: patient Limitations: no limitations <Niurka Bran - Last Filed: 03/12/21 10:54> <Victor M Haq - Last Filed: 03/12/21 11:12> - General Chief Complaint: Back Pain/Injury Stated Complaint: Back Pain Time Seen by Provider: 03/12/21 08:34 - History of Present Illness Initial Comments: 85 year-old male patient presents to the emergency department for evaluation of low back pain radiating down both legs. Patient states that she had a fall about a month ago. Has seen the reporting specialist. States that she initially had an xray at the ortho office which was negative. She continued to have pain so they did a CT left hip yesterday which showed left superior and inferior pelvic rami fractures. She reports that over night last night the pain worsened. She is now having radiating pain down both legs. States she feels pressure in the pelvis. Pain worsens with any movement and walking. She also reports numbness to the left leg when she stands. Has been taking alternating Tylenol and tramadol through the night was not helping. Patient denies any recent rash, fever, chills, cough, shortness of breath, chest pain, abdominal pain, nausea, vomiting, diarrhea, constipation, dizziness, hematuria, dysuria, urinary urgency, urinary frequency, headache, visual changes, or any other complaints. (Niurka Bran) - Related Data Home Medications Medication Instructions Recorded Confirmed Levothyroxine Sodium [Synthroid] 50 mcg PO QAM 03/21/17 03/12/21 Atorvastatin [Lipitor] 20 mg PO DAILY 05/28/19 03/12/21 Metoprolol Tartrate [Lopressor] 25 mg PO DAILY 05/28/19 03/12/21 Omeprazole [PriLOSEC] 40 mg PO DAILY 05/28/19 03/12/21 Vit C/E/Zn/Coppr/Lutein/Zeaxan 1 cap PO BID 08/22/19 03/12/21 [Preservision Areds 2 Softgel] Amiodarone [Cordarone] 200 mg PO Q48H 12/03/19 03/12/21 Biotin 5 mg PO DAILY 03/12/21 03/12/21 Cholecalciferol [Vitamin D3 (25 50 mcg PO DAILY 05/28/21 05/28/21 Mcg = 1000 Iu)] Loratadine [Claritin] 10 mg PO DAILY 03/12/21 03/12/21 Previous Rx's Medication Instructions Recorded Apixaban [Eliquis] 5 mg PO BID #1 tab 03/27/17 Allergies Allergy/AdvReac Type Severity Reaction Status Date / Time iodine Allergy Unknown Unknown Verified 03/12/21 09:49 morphine Allergy Unknown Unknown Verified 03/12/21 09:49 aloe Allergy Unknown Verified 03/12/21 09:49 codeine Allergy Unknown Verified 03/12/21 09:49 latex Allergy possible Verified 03/12/21 09:49 rash piperacillin [From Zosyn] Allergy Rash/Hives Verified 03/12/21 09:49 Sulfa (Sulfonamide Allergy Unknown Verified 03/12/21 09:49 Antibiotics) tazobactam [From Zosyn] Allergy Rash/Hives Verified 03/12/21 09:49 Review of Systems ROS Other: All systems not noted in ROS Statement are negative. <Niurka Bran - Last Filed: 03/12/21 10:54> ROS Other: All systems not noted in ROS Statement are negative. <Victor M Haq - Last Filed: 03/12/21 11:12> ROS Statement: Those systems with pertinent positive or pertinent negative responses have been documented in the HPI. 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 History of Any Multi-Drug Resistant Organisms: MRSA Date of last positivie culture/infection: 03/21/2017 MDRO Source:: left buttock/left labia Past Surgical History: Appendectomy, Breast Surgery, Tonsillectomy Additional Past Surgical History / Comment(s): Varicose vein stripping, bilateral cataract removal and intraocular lens implants, skin biopsies and skin cancer removal, sissy breast lumpectomy/cyst exc, I&D 03/15/17 and 03/21/17 of left buttock and left labia, Colonoscopy Past Anesthesia/Blood Transfusion Reactions: Family History of Problems w/ Anesthesia, Motion Sickness, Postoperative Nausea & Vomiting (PONV) Additional Past Anesthesia/Blood Transfusion Reaction / Comment(s): family hx of n/v with anesthesia. No hx blood transfusion Past Psychological History: No Psychological Hx Reported Smoking Status: Never smoker Past Alcohol Use History: Rare Past Drug Use History: None Reported - Past Family History Mother Family Medical History: AICD/Pacemaker, CVA/TIA, Thyroid Disorder Father Family Medical History: Cancer, COPD, GI Bleed Sister(s) Family Medical History: Cancer Additional Family Medical History / Comment(s): breast Daughter(s) Family Medical History: Cancer Additional Family Medical History / Comment(s): thyroid. granddtr-thyroid ca <Niurka Bran - Last Filed: 03/12/21 10:54> General Exam Limitations: no limitations General appearance: alert, in no apparent distress, other (This well-developed, well-nourished elderly female patient in no acute distress. Vital signs upon presentation To 97.4F. Pulse 55, respirations 18, blood pressure 170 01/14/2006, pulse ox 96% on room air.) Eye exam: Present: normal appearance, PERRL, EOMI. Absent: scleral icterus, conjunctival injection, periorbital swelling ENT exam: Present: normal exam, normal oropharynx, mucous membranes moist Respiratory exam: Present: normal lung sounds bilaterally. Absent: respiratory distress, wheezes, rales, rhonchi, stridor Cardiovascular Exam: Present: regular rate, normal rhythm, normal heart sounds. Absent: systolic murmur, diastolic murmur, rubs, gallop, clicks GI/Abdominal exam: Present: soft, normal bowel sounds. Absent: distended, tenderness, guarding, rebound, rigid Extremities exam: Present: normal inspection, full ROM, normal capillary refill, other (Skin to the lower trauma is is pink, warm, dry. Cap refill less than 3 seconds. Pedal and posttibial pulses are 2+.). Absent: tenderness, pedal edema, joint swelling, calf tenderness Back exam: Present: normal inspection. Absent: vertebral tenderness Neurological exam: Present: alert, oriented X3, CN II-XII intact Psychiatric exam: Present: normal affect, normal mood Skin exam: Present: warm, dry, intact, normal color. Absent: rash <Niurka Bran - Last Filed: 03/12/21 10:54> Course <Victor M Haq - Last Filed: 03/12/21 11:12> Vital Signs 03/12/21 08:28 Temperature 97.4 F L Pulse Rate 55 L Respiratory 18 Rate Blood Pressure 174/106 O2 Sat by Pulse 96 Oximetry - Reevaluation(s) Reevaluation #1: 03/12/21 11:11 COST ACCOUNTING CLERK supervision: I did personally evaluate this case patient presented with complaints of low back pain she was found have multiple fractures including pubic ramus fractures. She is times palpation over the left anterior pelvis. No focal neurological or vascular deficits. Patient will be admitted for inpatient evaluation treatment failure to thrive. (Victor M Haq) Medical Decision Making - Radiology Data Radiology results: report reviewed, image reviewed <Niurka Bran - Last Filed: 03/12/21 10:54> - Medical Decision Making 85 year-old female patient presents to the emergency department for evaluation of lower back pain, bilateral hip pain, and pain radiating down both legs. Reports numbness to the left leg with standing. Did perform pelvic CT as well as lumbar CT. Reports showed a redemonstrated left superior and inferior pubic rami fractures, possible right sided pelvic fracture, and an S1 and S2 fracture. Patient will be admitted to the hospital for further evaluation by orthopedics. Pain management will be provided. Family and patient are agreeable this plan. Case discussed with my attending Dr. Haq. (Niurka Bran) - Radiology Data Lumbar CT is obtained. Impression shows multilevel degenerative disc disease. Mild central stenosis L3 to 4 and bilateral lateral recess stenosis and borderline stenosis L4 to 5. CT pelvis without contrast was obtained. Report was reviewed in its entirety. Impression by Dr. Altamirano shows sacral fractures involving S1 and S2. Cannot exclude disc nondisplaced right osseous pubis fracture. Previously described fractures of left superior and inferior pubic rami. (Niurka Bran) Disposition Decision to Admit Reason: Admit from [facility] Decision Date: 03/12/21 Decision Time: 10:56 <Niurka Bran - Last Filed: 03/12/21 10:54> <Victor M Haq - Last Filed: 03/12/21 11:12> Clinical Impression: Inferior pubic ramus fracture, Fracture of superior ramus of left pubis, Sacral fracture Disposition: ADMITTED IP TO THIS [facility] Condition: Serious Referrals: Mark Faulkner MD [Primary Care Provider] - 1-2 days
--- NOTE | 2021-03-12 10:09 | CT ---
EXAMINATION TYPE: CT lumbar spine wo con DATE OF EXAM: 03/12/2021 COMPARISON: None HISTORY: FALL BILATERAL HIP PAIN CT DLP: 1242.[address] of the lumbar spine was performed. Bone and soft tissue window settings are submitted as well as coronal and sagittal reconstructions. L1-L2: Normal disc space height. No disc herniation protrusion or central stenosis. No facet joint arthropathy. No evidence for foraminal encroachment. L2-L3: Normal disc space height. No disc herniation protrusion or central stenosis. No facet joint arthropathy. No evidence for foraminal encroachment. L3-L4: Mild degenerative disc space narrowing. Posterior disc bulge. Hypertrophy ligamentum flavum an d facet joint arthropathy contributing to mild central stenosis. L4-L5: Mild to moderate degenerative disc space narrowing. Right base posterior disc bulge resulting in bilateral lateral recess stenosis and borderline central stenosis. Mild bilateral foraminal encroa chment. L5-S1: Moderate degenerative disc space narrowing. Posterior disc bulge with partially encapsulating spur. Effacement ventral thecal sac without herniation or central stenosis. No paraspinal masses are identified. No lumbar fractures seen. IMPRESSION: 1. Multilevel degenerative disc disease. 2. Mild central stenosis L3-4 and bilateral lateral recess stenosis and borderline stenosis at L4-5.
--- NOTE | 2021-03-12 10:16 | CT ---
EXAMINATION TYPE: CT pelvis wo con DATE OF EXAM: 03/12/2021 COMPARISON: CT of the left hip performed on 03/11/2021 HISTORY: FALL BILATERAL HIP PAIN CT DLP: 1242.5 mGycm Automated exposure control for dose reduction was used. Unenhanced CT of the pelvis was performed wit h bone and soft tissue window settings submitted. FINDINGS: Redemonstrated is comminuted fractures of the left superior and inferior pubic rami. There appears to be mild callus formation. There is fracture noted involving the right hemisacrum with transverse and vertical component at S1 and S2 seen best on coronal image 53. There is also vague lucency traversin g the left S1 segment also seen best on coronal image 53. Vague lucency noted to involve the right os pubis seen on image 2414 coronal data set may reflect additional fracture. No additional fractures a re seen with certainty at this time. Mild degenerative joint space narrowing is seen. IMPRESSION: 1. Sacral fractures as noted. 2. I cannot exclude a nondisplaced right osseous pubis fracture. 3. Previously described fractures of the left superior and inferior pubic rami.
[2021-03-12] MEDS ORDERED: NALOXONE 0.4 MG/ML 1 ML VIAL IV PRN (10:46)
[2021-03-12] MEDS ORDERED: ACETAMINOPHEN TAB 325 MG TAB PO PRN (10:46)
[2021-03-12] MEDS: HYDROmorphone 0.5 MG/0.5 ML SYRINGE IVP PRN ×2 (11:21→16:10)
[2021-03-12 11:49] LABS: Basophils % (A) 0 %; Eosinophils # (A) 0.1 k/uL (0-0.7); Eosinophils % (A) 1 %; HGB 12.4 gm/dL (11.4-16.0); Lymphocytes # (A) 0.9 k/uL (1.0-4.8); Lymphocytes % (A) 17 %; MCH 31.3 pg (25.0-35.0); MCHC 31.8 g/dL (31.0-37.0); MCV 98.3 fL (80.0-100.0); Mean Platelet Volume 7.6; Monocytes # (A) 0.3 k/uL (0-1.0); Monocytes % (A) 6 %; Neutrophils # (A) 4.1 k/uL (1.3-7.7); Neutrophils % (A) 74 %; Platelet Count 226 k/uL (150-450); RBC 3.97 m/uL (3.80-5.40); RDW 14.1 % (11.5-15.5); WBC 5.5 k/uL (3.8-10.6)
[2021-03-12 12:02] LABS: ALT 14 U/L (4-34); AST 27 U/L (14-36); African American GFR (CKD) >90 (>60 ml/min/1.73 sqM); Albumin 4.3 g/dL (3.5-5.0); Alkaline Phosphatase 128 U/L (38-126); Anion Gap 8 mmol/L; Blood Urea Nitrogen 12 mg/dL (7-17); Calcium 9.1 mg/dL (8.4-10.2); Carbon Dioxide 27 mmol/L (22-30); Chloride 99 mmol/L (98-107); Glucose 91 mg/dL (74-99); Non-African American GFR(CKD) 81 (>60 ml/min/1.73 sqM); Potassium 4.4 mmol/L (3.5-5.1); Sodium 134 mmol/L (137-145); Total Bilirubin 0.7 mg/dL (0.2-1.3); Total Protein 7.2 g/dL (6.3-8.2)
--- NOTE | 2021-03-12 15:45 | P.CNOR ---
History of Present Illness - [facility] Consult date: 03/12/21 Consult reason: fracture (Pelvis and sacral fractures) History of present illness: This is an 85-year-old female who to the emergency department for evaluation of low back pain radiating down both legs. Patient states that she had a fall about a month ago. Has seen the technical documentation specialist. States that she initially had an xray at the ortho office which was negative. She continued to have pain so they did a CT left hip yesterday which showed left superior and inferior pelvic rami fractures. She reports that over night last night the pain worsened. She is now having radiating pain down both legs. States she feels pressure in the pelvis. Pain worsens with any movement and walking. She also reports mild num bness to the left leg when she stands. Has been taking alternating Tylenol and tramadol through the night was not helping. Patient denies any recent rash, fever, chills, cough, shortness of breath, chest pain, abdominal pain, nausea, vomiting, diarrhea, constipation, dizziness, hematuria, dysuria, urinary urgency, urinary frequency, headache, visual changes, or any other complaints. Orthopedics is consulted for evaluation and treatment. 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 History of Any Multi-Drug Resistant Organisms: MRSA Year Discovered:: 03/21/2017 MDRO Source:: left buttock/left labia Past Surgical History: Appendectomy, Breast Surgery, Tonsillectomy Additional Past Surgical History / Comment(s): Varicose vein stripping, bilateral cataract removal and intraocular lens implants, skin biopsies and skin cancer removal, sissy breast lumpectomy/cyst exc, I&D 03/15/17 and 03/21/17 of left buttock and left labia, Colonoscopy Past Anesthesia/Blood Transfusion Reactions: Family History of Problems w/ A nesthesia, Motion Sickness, Postoperative Nausea & Vomiting (PONV) Additional Past Anesthesia/Blood Transfusion Reaction / Comm: family hx of n/v with anesthesia. No hx blood transfusion Past Psychological History: No Psychological Hx Reported Smoking Status: Never smoker Past Alcohol Use History: Rare Past Drug Use History: None Reported - Past Family History Mother Family Medical History: AICD/Pacemaker, CVA/TIA, Thyroid Disorder Father Family Medical History: Cancer, COPD, GI Bleed Sister(s) Family Medical History: Cancer Additional Family Medical History / Comment(s): breast Daughter(s) Family Medical History: Cancer Additional Family Medical History / Comment(s): thyroid. granddtr-thyroid ca Medications and Allergies Home Medications Medication Instructions Recorded Confirmed Type Levothyroxine Sodium [Synthroid] 50 mcg PO QAM 03/21/17 03/12/21 History Apixaban [Eliquis] 5 mg PO BID #1 tab 03/27/17 03/12/21 Rx Atorvastatin [Lipitor] 20 mg PO DAILY 05/28/19 03/12/21 History Metoprolol Tartrate [Lopressor] 25 mg PO DAILY 05/28/19 03/12/21 History Omeprazole [PriLOSEC] 40 mg PO DAILY 05/28/19 03/12/21 History Vit C/E/Zn/Coppr/Lutein/Zeaxan 1 cap PO BID 08/22/19 03/12/21 History [Preservision Areds 2 Softgel] Amiodarone [Cordarone] 200 mg PO Q48H 12/03/19 03/12/21 History Biotin 5 mg PO DAILY 03/12/21 03/12/21 History Cholecalciferol [Vitamin D3 (25 50 mcg PO DAILY 03/12/21 03/12/21 History Mcg = 1000 Iu)] Loratadine [Claritin] 10 mg PO DAILY 03/12/21 03/12/21 History Allergies Allergy/AdvReac Type Severity Reaction Status Date / Time iodine Allergy Unknown Unknown Verified 03/12/21 09:49 morphine Allergy Unknown Unknown Verified 03/12/21 09:49 aloe Allergy Unknown Verified 03/12/21 09:49 codeine Allergy Unknown Verified 03/12/21 09:49 latex Allergy possible Verified 03/12/21 09:49 rash piperacillin [From Zosyn] Allergy Rash/Hives Verified 03/12/21 09:49 Sulfa (Sulfonamide Allergy Unknown Verified 03/12/21 09:49 Antibiotics) tazobactam [From Zosyn] Allergy Rash/Hives Verified 03/12/21 09:49 Physical Examination This is a pleasant 85-year-old female in no acute distress. She is alert and oriented 3. Her daughter is present at bedside. Exam of the head neck reveal no obvious deformity. She has full cervical spine motion without difficulty or pain. Exam of the upper extremities is unremarkable. She has full shoulder, elbow, wrist and finger motion bilaterally. Neurovascular status the upper extremities is intact. Exam of the thoracic and lumbar spine reveal no obvious deformity. She is nontender over the thoracic or lumbar spine. She does have mild tenderness over the sacrum. There is pain with compression of the pelvis. Exam of the lower extremities reveals no obvious deformity. She is able to lift each leg off the bed independently with mild pain. Logroll does not produce pain bilaterally. Neurovascular status to the lower extremities is intact. Results Computed tomography scan of the pelvis reveals a superior and inferior rami fractures on the left. She has bilateral sacral fractures, right worse than l eft. Fractures are minimally displaced. - Labs Labs: Abnormal Lab Results - Last 24 Hours (Table) 03/12/21 03/12/21 Range/Units 11:19 11:19 Lymphocytes # 0.9 L (1.0-4.8) k/uL Sodium 134 L (137-145) mmol/L Alkaline Phosphatase 128 H (38-126) U/L H & H 03/12/21 Range/Units 11:19 Hgb 12.4 (11.4-16.0) gm/dL Hct 39.0 (34.0-46.0) % Result Diagrams: 03/12/21 11:19 03/12/21 11:19 Assessment and Plan (1) Fracture of superior ramus of left pubis Current Visit: Yes Status: Acute Code(s): S32.512A - FRACTURE OF SUPERIOR RIM OF LEFT PUBIS, INIT FOR CLOS FX SNOMED Code(s): 769406091 (2) Inferior pubic ramus fracture Current Visit: Yes Status: Acute Code(s): S32.599A - OTH FRACTURE OF UNSP PUBIS, INIT ENCNTR FOR CLOSED FRACTURE SNOMED Code(s): 690662936 (3) Sacral fracture Current Visit: Yes Status: Acute Code(s): S32.10XA - UNSP FRACTURE OF SACRUM, INIT ENCNTR FOR CLOSED FRACTURE SNOMED Code(s): 572066936 Plan: The clinical and x-ray findings are discussed the patient and her daughter. Her fractures are about a month old that her pain is worsening. She has not been protecting weightbearing or resting in the last month. It is recommended she be primarily bed to chair transfer only with ambulating only to the commode with use of a walker. She may be a candidate for inpatient rehab. We will follow-up with repeat x-rays in 3 weeks.
[2021-03-12] MEDS: ONDANSETRON 4 MG/2 ML VIAL IVP PRN (19:40)
[2021-03-12] MEDS: APIXABAN 5 MG TAB PO SCH (21:44)
[2021-03-12] MEDS: VIT A,C & E-LUTEIN-MINERALS 1 EACH TAB PO SCH (21:44)
[2021-03-13] MEDS: HYDROmorphone 0.5 MG/0.5 ML SYRINGE IVP PRN ×5 (01:53→21:10)
[2021-03-13] MEDS: LEVOTHYROXINE 50 MCG TAB PO SCH (05:58)
[2021-03-13] MEDS: METOPROLOL TARTRATE 25 MG TAB PO SCH (08:55)
[2021-03-13] MEDS: APIXABAN 5 MG TAB PO SCH ×2 (08:55→20:56)
[2021-03-13] MEDS: PANTOPRAZOLE 40 MG TABLET PO SCH (08:55)
[2021-03-13] MEDS: VIT A,C & E-LUTEIN-MINERALS 1 EACH TAB PO SCH ×2 (08:56→20:56)
[2021-03-13] MEDS: ATORVASTATIN 20 MG TAB PO SCH (08:56)
[2021-03-13] MEDS: LORATADINE 10 MG TAB PO SCH (08:56)
[2021-03-13] MEDS: CHOLECALCIFEROL 25 MCG (1000 IU) TABLET PO SCH (08:56)
[2021-03-13] MEDS ORDERED: NON FORMULARY DRUG (Omeprazole 40 MG Capsule.Dr) PO SCH (09:00)
[2021-03-13] MEDS ORDERED: NON FORMULARY DRUG (Biotin [Biotin] 5 MG Capsule) PO SCH (09:00)
[2021-03-13 09:13] LABS: Basophils # (A) 0.01 X 10*3/uL (0.00-0.10); Basophils % (A) 0.2 %; Eosinophils # (A) 0.04 X 10*3/uL (0.04-0.35); Eosinophils % (A) 0.9 %; HCT 34.6 % (37.2-46.3); HGB 11.1 g/dL (12.0-15.0); Lymphocytes # (A) 0.97 X 10*3/uL (0.90-5.00); Lymphocytes % (A) 22.4 %; MCH 31.7 pg (27.0-32.0); MCHC 32.1 g/dL (32.0-37.0); MCV 98.9 fL (80.0-97.0); Mean Platelet Volume 10.2 fL (9.5-12.2); Monocytes # (A) 0.51 X 10*3/uL (0.20-1.00); Monocytes % (A) 11.8 %; Neutrophils # (A) 2.79 X 10*3/uL (1.80-7.70); Neutrophils % (A) 64.2 %; Platelet Count 208 X 10*3/uL (140-440); RDW 13.9 % (11.5-14.5); WBC 4.34 X 10*3/uL (4.50-10.00)
[2021-03-13 10:05] LABS: African American GFR (CKD) 96.3 (60.0-200.0); Albumin 3.8 g/dL (3.80-4.90); Albumin/Globulin Ratio 1.73 (1.60-3.17); Anion Gap 9.6 mmol/L (4.00-12.00); BUN/Creat Ratio 16.67 Ratio (12.00-20.00); Calcium 9.1 mg/dL (8.7-10.3); Carbon Dioxide 27.4 mmol/L (21.6-31.8); Globulin 2.2 g/dL (1.6-3.3); Non-African American GFR(CKD) 83.1 (60.0-200.0); Total Bilirubin 0.8 mg/dL (0.2-1.2)
--- NOTE | 2021-03-13 10:53 | P.PN ---
<SeguraDaysi - Last Filed: 03/13/21 10:50> Subjective Progress Note Date: 03/13/21 Principal diagnosis: Bilateral sacral fractures. Left pubic rami fractures. his is an 85-year-old female who to the emergency department for evaluation of low back pain radiating down both legs. Patient states that she had a fall about a month ago. Has seen the [employer] rede[employer] specialist. States that she initially had an xray at the ortho office which was negative. She continued to have pain so they did a CT left hip yesterday which showed left superior and inferior pelvic rami fractures. She reports that over night last night the pain worsened. She is now having radiating pain down both legs. States she feels pressure in the pelvis. Pain worsens with any movement and walking. She also reports mild numbness to the left leg when she stands. Has been taking alternating Tylenol and tramadol through the night was not helping. Patient denies any recent rash, fever, chills, cough, shortness of breath, chest pain, abdominal pain, nausea, vomiting, diarrhea, constipation, dizziness, hematuria, dysuria, urinary urgency, urinary frequency, headache, visual changes, or any other complaints. Orthopedics is consulted for evaluation and treatment. 03/13/2021: The patient is stable from an orthopedic standpoint. She has no new complaints or concerns today. She has been up to the chair with pulmonary physical therapist apy and up to the commode. Vital signs are stable. Objective - Vital Signs Vital signs: Vital Signs Temp 97.6 F 03/13/21 08:00 Pulse 73 03/13/21 08:00 Resp 16 03/13/21 08:00 BP 171/69 03/13/21 08:00 Pulse Ox 94 L 03/13/21 08:00 Intake & Output 03/12/21 03/13/21 03/13/21 18:59 06:59 18:59 Weight 70.307 kg 70.307 kg Other: Voiding Method Bedside Commode Bedpan # Voids 4 - Exam Exam is essentially unchanged. She is able to move upper extremities without difficulty or pain. Pain with motion of the left hip. She is able to lift each leg off the bed independently with some pain. Neurovascular status to the lower extremities is intact. - Labs CBC & Chem 7: 03/13/21 05:40 05/29/21 05:40 Labs: Abnormal Lab Results - Last 24 Hours (Table) 03/12/21 03/12/21 03/13/21 Range/Units 11:19 11:19 05:40 WBC 4.34 L (4.50-10.00) X 10*3/uL RBC 3.50 L (4.10-5.20) X 10*6/uL Hgb 11.1 L (12.0-15.0) g/dL Hct 34.6 L (37.2-46.3) % MCV 98.9 H (80.0-97.0) fL Lymphocytes # 0.9 L (1.0-4.8) k/uL Sodium 134 L (137-145) mmol/L Alkaline Phosphatase 128 H (38-126) U/L Total Protein (6.2-8.2) g/dL 03/13/21 Range/Units 05:40 WBC (4.50-10.00) X 10*3/uL RBC (4.10-5.20) X 10*6/uL Hgb (12.0-15.0) g/dL Hct (37.2-46.3) % MCV (80.0-97.0) fL Lymphocytes # (1.0-4.8) k/uL Sodium (137-145) mmol/L Alkaline Phosphatase (38-126) U/L Total Protein 6.0 L (6.2-8.2) g/dL Assessment and Plan (1) Fracture of superior ramus of left pubis Current Visit: Yes Status: Acute Code(s): S32.512A - FRACTURE OF SUPERIOR RIM OF LEFT PUBIS, INIT FOR CLOS FX SNOMED Code(s): 462667485 (2) Inferior pubic ramus fracture Current Visit: Yes Status: Acute Code(s): S32.599A - OTH FRACTURE OF UNSP PUBIS, INIT ENCNTR FOR CLOSED FRACTURE SNOMED Code(s): 516878180 (3) Sacral fracture Current Visit: Yes Status: Acute Code(s): S32.10XA - UNSP FRACTURE OF SACRUM, INIT ENCNTR FOR CLOSED FRACTURE SNOMED Code(s): 450824034 Plan: The clinical and x-ray findings are discussed the patient. Her fractures are about a month old and her pain is worsening. She has not been protecting shant ghtbearing or resting in the last month. It is recommended she be primarily bed to chair transfer only with ambulating only to the commode with use of a walker. She may be a candidate for inpatient rehab. We will follow-up with repeat x- rays in 3 weeks. Continue current care. Plan discharge to rehab when cleared medically. <Alan Kelly - Last Filed: 03/13/21 11:18> Objective - Vital Signs Vital signs: Vital Signs Temp 97.6 F 03/13/21 08:00 Pulse 73 03/13/21 08:00 Resp 16 03/13/21 08:00 BP 171/69 03/13/21 08:00 Pulse Ox 94 L 03/13/21 08:00 Intake & Output 03/12/21 03/13/21 03/13/21 18:59 06:59 18:59 Weight 70.307 kg 70.307 kg Other: Voiding Method Bedside Commode Bedpan # Voids 4 - Labs CBC & Chem 7: 03/13/21 05:40 03/13/21 05:40 Labs: Abnormal Lab Results - Last 24 Hours (Table) 03/12/21 03/12/21 03/13/21 Range/Units 11:19 11:19 05:40 WBC 4.34 L (4.50-10.00) X 10*3/uL RBC 3.50 L (4.10-5.20) X 10*6/uL Hgb 11.1 L (12.0-15.0) g/dL Hct 34.6 L (37.2-46.3) % MCV 98.9 H (80.0-97.0) fL Lymphocytes # 0.9 L (1.0-4.8) k/uL Sodium 134 L (137-145) mmol/L Alkaline Phosphatase 128 H (38-126) U/L Total Protein (6.2-8.2) g/dL 03/13/21 Range/Units 05:40 WBC (4.50-10.00) X 10*3/uL RBC (4.10-5.20) X 10*6/uL Hgb (12.0-15.0) g/dL Hct (37.2-46.3) % MCV (80.0-97.0) fL Lymphocytes # (1.0-4.8) k/uL Sodium (137-145) mmol/L Alkaline Phosphatase (38-126) U/L Total Protein 6.0 L (6.2-8.2) g/dL Assessment and Plan Plan: The patient is seen and examined at bedside I agree with the above dictation. The images of been reviewed revealing the pubic Rami fractures as well as the sacral ala fractures bilaterally. The patient is neurologically intact at the bilateral lower extremities without any saddle paresthesias. The patient has new fractures at her pubic rami and sacral ala. She is quite painful with weightbearing and need significant assistance with transfer training. The fractures are in stable position and I would not recommend any surgical intervention. I think that her fractures can heal well with conservative management. The healing process will take quite a bit of time where she needs protected weightbearing at least for the next 4-6 weeks. During this time she'll need significant assistance for her transfers and activities of daily living. I think that she is a good candidate for inpatient rehab. She is recommended primarily bed to chair transfer only and ambulate only to commode with use of a walker. It is okay for her to do activities for with her lower legs while she is seated or lying in bed.
--- NOTE | 2021-03-13 18:38 | XR ---
EXAMINATION TYPE: XR chest 1V portable DATE OF EXAM: 03/13/2021 COMPARISON: 06/11/2019 HISTORY: Short of breath TECHNIQUE: FINDINGS: There is no heart failure nor confluent pneumonic infiltrate. Costophrenic angles are clear . There are no hilar masses. Thoracic aorta shows mild atheromatous change. Bony thorax appears intac t. IMPRESSION: No active cardiopulmonary disease. No adverse change.
[2021-03-13] MEDS: DOCUSATE 100 MG CAP PO SCH (20:56)
[2021-03-13] MEDS: ONDANSETRON 4 MG/2 ML VIAL IVP PRN (21:09)
--- NOTE | 2021-03-13 22:22 | HP ---
HISTORY AND PHYSICAL DATE OF SERVICE: 03/13/2021 I am covering for Dr. Faulkner. HISTORY OF PRESENT ILLNESS: This 85-year-old woman with a past medical history of atrial fibrillation, history of COPD, GERD, hypertension, history of DJD, history of pneumonia, being followed by Dr. Faulkner in the outpatient setting apparently had a fall about a month ago. The patient initially had an x-ray which was negative apparently, but subsequently CT left hip showed left superior and inferior pelvic rami fracture. The patient is complaining of significant pain which was worsening and the patient came to [facility] admitted for evaluation and treatment. Possible ECF rehab is also being planned at this time. The basic labs showed hemoglobin 11.1 sodium is 134. There is no history of fever, rigors, chills at this time. PAST HISTORY: Atrial fibrillation, history of COPD, GERD, hypertension, DJD, history of pneumonia, hypothyroidism. MEDICATIONS: Home medications are Claritin, vitamin D3, omeprazole, metoprolol, Synthroid, biotin, Lipitor, Eliquis, Cordarone, doses reviewed. ALLERGIES: IODINE, MORPHINE, ALOE, CODEINE, LATEX, ZOSYN, SULFA, TAZOBACTAM. FAMILY HISTORY: History of AICD, CVA, TIA, hypothyroidism, breast cancer. SOCIAL HISTORY: No history of smoking. No history of alcohol intake. REVIEW OF SYSTEMS: ENT: Diminished vision. Diminished hearing. CARDIOVASCULAR: No angina or palpitations. RESPIRATIONS: No cough. No hemoptysis. GI no nausea or vomiting. no dysuria. NERVOUS SYSTEM: As mentioned earlier. ALLERGY/IMMUNOLOGY: No asthma or hayfever. MUSCULOSKELETAL: As mentioned earlier. HEMATOLOGY/ONCOLOGY: No history of anemia. ENDOCRINE: As mentioned earlier. CONSTITUTIONAL: As mentioned earlier. DERMATOLOGY: Negative. RHEUMATOLOGY: Negative. PSYCHIATRIC: As mentioned earlier. PHYSICAL EXAMINATION: Alert and oriented x2. Pulse is 59, blood pressure 109/60, respirations 16, temperature 97.6, pulse ox 91 percent on room air. HEENT: Conjunctivae normal. NECK: No JVD. CARDIOVASCULAR: S1, S2 muffled. RESPIRATION: Breath sounds diminished in the bases. A few scattered rhonchi. No crackles. ABDOMEN: Soft, nontender. LEGS: No edema. Movements are painful. NERVOUS SYSTEM: No focal deficits except limited movement of the leg because of the pain. SKIN: No ulcer, rash or bleeding. JOINTS: No active deforming arthropathy. LABS: WBC 4.2, hemoglobin 11.1. Other labs are noted. ASSESSMENT: 1. Fall and pelvic fracture with inferior and superior pubic ramus fracture on the left side with failure of outpatient treatment. 2. Severe pain. 3. Severe gait dysfunction. 4. Atrial fibrillation. 5. Chronic obstructive pulmonary disease. 6. Gastroesophageal reflux disease. 7. Hypertension. 8. History of degenerative joint disease. 9. History of pneumonia. 10.Hypothyroidism. 11.History of basal cell carcinoma. 12.History of MRSA. 13.Appendectomy. 14.History of motion sickness. 15.FULL CODE. RECOMMENDATIONS AND DISCUSSION: This 85-year-old woman who presented with multiple complex medical issues, we will monitor the patient closely, continue the current medications, management and symptomatic treatment. Otherwise, I would recommend resume the home medications. PT/OT evaluation and DVT prophylaxis. Overall prognosis guarded because of multiple complex medical issues. Further recommendations to follow. A copy of this dictation is being forwarded to Dr. Faulkner who is the primary physician. MMODL / IJN: [id number] /
[2021-03-14] MEDS: HYDROmorphone 0.5 MG/0.5 ML SYRINGE IVP PRN ×2 (00:46→08:34)
[2021-03-14 03:48] LABS: Appearance,Urine Clear (Clear); Bilirubin,Urine Negative (Negative); Blood,Urine Negative (Negative); Color,Urine Light Yellow; Glucose,Urine (UA) Negative (Negative); Ketones,Urine Negative (Negative); Leukocyte Esterase,Urine Negative (Negative); Nitrite,Urine Negative (Negative); Protein,Urine Negative (Negative); Specific Gravity,Urine 1.007 (1.001-1.035); Urobilinogen,Urine <2.0 mg/dL (<2.0)
[2021-03-14] MEDS: LEVOTHYROXINE 50 MCG TAB PO SCH (05:38)
[2021-03-14] MEDS: METOPROLOL TARTRATE 25 MG TAB PO SCH (08:28)
[2021-03-14] MEDS: AMIODARONE 200 MG TAB PO SCH (08:28)
[2021-03-14] MEDS: ATORVASTATIN 20 MG TAB PO SCH (08:28)
[2021-03-14] MEDS: CHOLECALCIFEROL 25 MCG (1000 IU) TABLET PO SCH (08:28)
[2021-03-14] MEDS: VIT A,C & E-LUTEIN-MINERALS 1 EACH TAB PO SCH ×2 (08:28→20:27)
[2021-03-14] MEDS: LORATADINE 10 MG TAB PO SCH (08:28)
[2021-03-14] MEDS: APIXABAN 5 MG TAB PO SCH ×2 (08:28→20:27)
[2021-03-14] MEDS: PANTOPRAZOLE 40 MG TABLET PO SCH (08:28)
[2021-03-14 09:14] LABS: Basophils # (A) 0.02 X 10*3/uL (0.00-0.10); Basophils % (A) 0.4 %; Eosinophils # (A) 0.09 X 10*3/uL (0.04-0.35); Eosinophils % (A) 1.9 %; HCT 36.4 % (37.2-46.3); HGB 11.3 g/dL (12.0-15.0); Lymphocytes # (A) 1.28 X 10*3/uL (0.90-5.00); Lymphocytes % (A) 27.5 %; MCH 31.3 pg (27.0-32.0); MCV 100.8 fL (80.0-97.0); Mean Platelet Volume 10.2 fL (9.5-12.2); Monocytes # (A) 0.66 X 10*3/uL (0.20-1.00); Monocytes % (A) 14.2 %; Neutrophils # (A) 2.58 X 10*3/uL (1.80-7.70); Neutrophils % (A) 55.4 %; Platelet Count 215 X 10*3/uL (140-440); RBC 3.61 X 10*6/uL (4.10-5.20); RDW 14.1 % (11.5-14.5); WBC 4.66 X 10*3/uL (4.50-10.00)
[2021-03-14 10:12] LABS: African American GFR (CKD) 91.6 (60.0-200.0); Anion Gap 10.1 mmol/L (4.00-12.00); Calcium 8.9 mg/dL (8.7-10.3); Carbon Dioxide 27.9 mmol/L (21.6-31.8); Potassium 4.2 mmol/L (3.5-5.5)
[2021-03-14] MEDS: HYDROcodone/APAP 5-325MG 1 EACH TAB PO PRN ×2 (12:08→17:44)
[2021-03-14] MEDS ORDERED: HYDROCORTISONE 1% CREAM 30 GM TUBE TOPICAL PRN (12:10)
--- NOTE | 2021-03-14 18:57 | PN ---
PROGRESS NOTE DATE OF SERVICE: 03/14/2021. I am covering for Dr. Faulkner. This 85-year-old woman was admitted with significant pain and gait dysfunction also had a pelvis fracture. The ECF rehab is being planned at this time. No chest pain. No palpitations. No fever. Chest x-ray showed no active abnormality. The basic labs showed hemoglobin 11.3, rather stable. PHYSICAL EXAMINATION: Alert and oriented times three. Pulse 58. Blood pressure 110/60, respirations 16, temperature 97.7, pulse ox 94% on room air. HEENT: Conjunctivae normal. NECK: No JVD. CARDIOVASCULAR: S1, S2 muffled. RESPIRATIONS: Breath sounds diminished in the bases. ABDOMEN: Soft, nontender. LEGS: Movement of the left leg especially is painful. Local tenderness also noted. LABS: WBC 4.6, hemoglobin 11.3. ASSESSMENT: 1. Fall and pelvic fracture with inferior superior pubic ramus fracture on the left side with failure of outpatient treatment. 2. Severe pain. 3. Severe gait dysfunction. 4. Atrial fibrillation. 5. Chronic obstructive pulmonary disease. 6. Gastroesophageal reflux disease. 7. Hypertension. 8. History of degenerative joint disease. 9. History of pneumonia. 10.Hypothyroidism. 11.History of basal cell carcinoma. 12.History of MRSA. 13.History of appendectomy. 14.History of motion sickness. 15.FULL CODE. RECOMMENDATIONS AND DISCUSSION: Recommend to continue current medications, management and symptomatic treatment. Otherwise, at this time, I recommend pain management. PT/OT evaluation, possible ECF rehab. Guarded prognosis. Further recommendations to follow. MMODL / IJN: [id number] /
[2021-03-14] MEDS: DOCUSATE 100 MG CAP PO SCH (20:28)
[2021-03-15] MEDS: HYDROcodone/APAP 5-325MG 1 EACH TAB PO PRN ×3 (05:08→18:03)
[2021-03-15] MEDS: LEVOTHYROXINE 50 MCG TAB PO SCH (05:08)
[2021-03-15] MEDS: CHOLECALCIFEROL 25 MCG (1000 IU) TABLET PO SCH (08:39)
[2021-03-15] MEDS: PANTOPRAZOLE 40 MG TABLET PO SCH (08:39)
[2021-03-15] MEDS: APIXABAN 5 MG TAB PO SCH ×2 (08:39→21:47)
[2021-03-15] MEDS: METOPROLOL TARTRATE 25 MG TAB PO SCH ×2 (08:39→08:42)
[2021-03-15] MEDS: LORATADINE 10 MG TAB PO SCH (08:39)
[2021-03-15] MEDS: ATORVASTATIN 20 MG TAB PO SCH (08:39)
[2021-03-15] MEDS: VIT A,C & E-LUTEIN-MINERALS 1 EACH TAB PO SCH ×2 (08:45→21:47)
[2021-03-15] MEDS: HYDROmorphone 0.5 MG/0.5 ML SYRINGE IVP PRN ×2 (13:31→21:47)
--- NOTE | 2021-03-15 21:27 | PN ---
PROGRESS NOTE DATE OF SERVICE: 03/15/2021 I am covering for Dr. Faulkner. This 85-year-old woman who was admitted with fall and pelvis fracture also had some pain. Also, PT, OT is to evaluate the patient for possible ECF rehab. Patient had failed outpatient treatment. The chest x-ray which I reviewed showed no acute abnormality. No chest pain. No palpitations. No fever. PHYSICAL EXAMINATION: Alert and oriented x3. Pulse is 79, blood pressure 108/59, respiration 16, temperature 97.9, pulse ox 98% on room air. HEENT: Conjunctivae normal. Oral mucosa moist. NECK: No jugular venous distention. No lymph node enlargement. CARDIOVASCULAR: S1, S2, muffled. No S3, no S4, RESPIRATORY: Diminished breath sounds at the bases. A few scattered rhonchi. ABDOMEN: Soft, nontender. LEGS: No edema, no swelling. NERVOUS SYSTEM: No focal deficits. LABS: WBC 4.6, hemoglobin is 11.3. COVID-19 is negative. ASSESSMENT: 1. Fall and pelvic fracture with inferior and superior pubic ramus fracture on the left side with failure of outpatient treatment. 2. Severe pain. 3. Severe gait dysfunction. 4. Atrial fibrillation. 5. Chronic obstructive pulmonary disease. 6. Gastroesophageal reflux disease. 7. Hypertension. 8. History of degenerative joint disease. 9. History of pneumonia. 10.Hypothyroidism. 11.History of basal cell carcinoma. 12.History of MRSA. 13.History of appendectomy. 14.History of motion sickness. 15.FULL CODE. RECOMMENDATIONS: Recommend to continue current medications, continue monitoring and symptomatic treatment. Otherwise, at this time I recommend PT/OT evaluation, possible ECF rehab. Dr. Faulkner will follow tomorrow. MMODL / IJN: [id number] /
[2021-03-15] MEDS: DOCUSATE 100 MG CAP PO SCH (21:47)
[2021-03-16] MEDS: HYDROcodone/APAP 5-325MG 1 EACH TAB PO PRN (03:33)
[2021-03-16] MEDS: LEVOTHYROXINE 50 MCG TAB PO SCH (05:16)
[2021-03-16] MEDS: HYDROmorphone 0.5 MG/0.5 ML SYRINGE IVP PRN (07:32)
[2021-03-16] MEDS: VIT A,C & E-LUTEIN-MINERALS 1 EACH TAB PO SCH (07:33)
[2021-03-16] MEDS: AMIODARONE 200 MG TAB PO SCH (07:33)
[2021-03-16] MEDS: CHOLECALCIFEROL 25 MCG (1000 IU) TABLET PO SCH (07:33)
[2021-03-16] MEDS: PANTOPRAZOLE 40 MG TABLET PO SCH (07:33)
[2021-03-16] MEDS: LORATADINE 10 MG TAB PO SCH (07:34)
[2021-03-16] MEDS: ATORVASTATIN 20 MG TAB PO SCH (07:34)
[2021-03-16] MEDS: APIXABAN 5 MG TAB PO SCH (07:34)
[2021-03-16] MEDS: METOPROLOL TARTRATE 25 MG TAB PO SCH (07:35)
[2021-03-16 08:02] VITALS: RESP 18
[2021-03-16] MEDS ORDERED: HYDROcodone/APAP 7.5-325MG 1 EACH TAB PO PRN (08:05)
[2021-03-16] MEDS ORDERED: DOCUSATE 100 MG CAP PO SCH (09:00)
[2021-03-16] MEDS ORDERED: polyethylene glycoL 3350 17 GM POWD.PACK PO SCH (09:00)
[2021-03-16] MEDS: HYDROcodone/APAP 7.5-325MG 1 EACH TAB PO PRN ×2 (11:21→15:05)
--- NOTE | 2021-03-16 11:29 | P.CONS ---
History of Present Illness - Chief Complaint Walking difficulty - History of Present Illness I had the opportunity to see patient for inpatient rehab consultation with regard to walking difficulty. Patient and 2 daughters report history of falling 6 weeks earlier with discomfort and pelvis and back. Initial workup negative. Workup one week ago with CTs demonstrated fractures left superior and inferior pubic rami, sacrum S1, S2, right pubis. Lumbar CT demonstrates DDD and bulges L3-5 with central L3-5 encroachment/stenosis and bilateral L4. PT reports supervision minimal assistance for bed mobility, transfers, gait 4 feet with roller walker. OT prescribed. Patient daughter's report seen by Dr. Kelly was recommended multiple restrictions in fact recommended this hospitalization. Previous functional history as elicited patient and corroborated by daughters: 85-year-old right-handed white female who is lives and 3 for home alone. Retired. Describes previously independent with own cooking, laundry, driving, standing shower and gait without device. She's been using a roller walker for the last 1-[address] Faulkner. Denies tobacco and has rare drink. Family history of father with cancer and mother with hypertension and stroke. Review of Systems Review of systems: ENT: Denies sneezes or discharge. Eyes: Denies discharge or photophobia. Cardiac: Denies chest pain or palpitation. Pulmonary: Denies cough or shortness of breath. Breast: Denies discharge or lumps. Gastrointestinal: Denies nausea, emesis, constipation, diarrhea. Genitourinary: Denies discharge or frequency. Musculoskeletal: Low back and pelvic discomfort which is currently controlled. Neurologic: Denies motor or sensory change. Endocrine: Denies shakes or sweats. Oncology: Denies cancers. Dermatologic: Denies rash, itching, pruritus. ALLERGY/immunology: Denies sneezes, rashes. 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 History of Any Multi-Drug Resistant Organisms: MRSA Year Discovered:: 03/21/2017 MDRO Source:: left buttock/left labia Past Surgical History: Appendectomy, Breast Surgery, Tonsillectomy Additional Past Surgical History / Comment(s): Varicose vein stripping, bilateral cataract removal and intraocular lens implants, skin biopsies and skin cancer removal, sissy breast lumpectomy/cyst exc, I&D 03/15/17 and 03/21/17 of left buttock and left labia, Colonoscopy Past Anesthesia/Blood Transfusion Reactions: Family History of Problems w/ Anesthesia, Motion Sickness, Postoperative Nausea & Vomiting (PONV) Additional Past Anesthesia/Blood Transfusion Reaction / Comm: family hx of n/v with anesthesia. No hx blood transfusion Past Psychological History: No Psychological Hx Reported Smoking Status: Never smoker Past Alcohol Use History: Rare Additional Past Alcohol Use History / Comment(s): Patient is lifelong nonsmoker but she did have years of exposure to secondhand smoke. 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 She denies any medical marijuana, marijuana, street drug use. She drinks alcohol very rare basis. Past Drug Use History: None Reported - Past Family History Mother Family Medical History: AICD/Pacemaker, CVA/TIA, Thyroid Disorder Father Family Medical History: Cancer, COPD, GI Bleed Sister(s) Family Medical History: Cancer Additional Family Medical History / Comment(s): breast Daughter(s) Family Medical History: Cancer Additional Family Medical History / Comment(s): thyroid. granddtr-thyroid ca Medications and Allergies Home Medications Medication Instructions Recorded Confirmed Type Levothyroxine Sodium [Synthroid] 50 mcg PO QAM 03/21/17 03/12/21 History Apixaban [Eliquis] 5 mg PO BID #1 tab 03/27/17 03/12/21 Rx Atorvastatin [Lipitor] 20 mg PO DAILY 05/28/19 03/12/21 History Metoprolol Tartrate [Lopressor] 25 mg PO DAILY 05/28/19 03/12/21 History Omeprazole [PriLOSEC] 40 mg PO DAILY 05/28/19 03/12/21 History Vit C/E/Zn/Coppr/Lutein/Zeaxan 1 cap PO BID 08/22/19 03/12/21 History [Preservision Areds 2 Softgel] Amiodarone [Cordarone] 200 mg PO Q48H 12/03/19 03/12/21 History Biotin 5 mg PO DAILY 03/12/21 03/12/21 History Cholecalciferol [Vitamin D3 (25 50 mcg PO DAILY 03/12/21 03/12/21 History Mcg = 1000 Iu)] Loratadine [Claritin] 10 mg PO DAILY 03/12/21 03/12/21 History Allergies Allergy/AdvReac Type Severity Reaction Status Date / Time iodine Allergy Unknown Unknown Verified 03/12/21 09:49 morphine Allergy Unknown Unknown Verified 03/12/21 09:49 aloe Allergy Unknown Verified 03/12/21 09:49 codeine Allergy Unknown Verified 03/12/21 09:49 latex Allergy possible Verified 03/12/21 09:49 rash piperacillin [From Zosyn] Allergy Rash/Hives Verified 03/12/21 09:49 Sulfa (Sulfonamide Allergy Unknown Verified 03/12/21 09:49 Antibiotics) tazobactam [From Zosyn] Allergy Rash/Hives Verified 03/12/21 09:49 Physical Exam Vitals: Vital Signs Temp Pulse Resp BP BP Pulse Ox 03/16/21 08:00 98.3 F 76 18 130/79 92 L 03/16/21 00:36 97.5 F L 70 14 122/62 93 L 03/15/21 21:23 97.7 F 73 16 129/76 93 L 03/15/21 14:00 97.9 F 79 16 108/59 98 Intake and Output 03/15/21 03/16/21 03/16/21 22:59 06:59 14:59 Other: Voiding Method Toilet Bedside Commode # Voids 1 1 Skin: Atrophic, intact. General: Medium build and comfortable appearance. Head: Normocephalic, atraumatic. Eyes: Symmetric. Pupils equal round. Ears: Symmetric. Hearing within normal limits. Mouth: Clear. Neck: Supple. Carotid without bruit. Cardiac: Regular rate and rhythm. Lungs: Clear anteriorly and posteriorly. Abdomen: Soft active nontender. Extremities: Normal tone. Neurological: Mental status: Alert, cooperative, pleasant. Cranial nerves: Symmetric facial tone and trapezius. Motor: Active movement all 4 limbs but unable to elevate legs off the bed due to discomfort, slides them and bed instead. Sensation: Intact throughout. DTRs: Symmetric and equal throughout. Mobility: Sits requires physical assist for bed and functional mobility. Results CBC & Chem 7: 03/14/21 03:59 03/14/21 03:59 Assessment and Plan (1) Fracture of superior ramus of left pubis Current Visit: Yes Status: Acute Code(s): S32.512A - FRACTURE OF SUPERIOR RIM OF LEFT PUBIS, INIT FOR CLOS FX SNOMED Code(s): 575161073 (2) Inferior pubic ramus fracture Current Visit: Yes Status: Acute Code(s): S32.599A - OTH FRACTURE OF UNSP P UBIS, INIT ENCNTR FOR CLOSED FRACTURE SNOMED Code(s): 816195600 (3) Sacral fracture Current Visit: Yes Status: Acute Code(s): S32.10XA - UNSP FRACTURE OF SACRUM, INIT ENCNTR FOR CLOSED FRACTURE SNOMED Code(s): 740201196 (4) Cellulitis of buttock, left Current Visit: No Status: Acute Code(s): L03.317 - CELLULITIS OF BUTTOCK SNOMED Code(s): 14268682 Plan: Impression: Bodily. 2. Fractures S1, S2, left superior and inferior pubic rami and pubis. 3. Lumbar DDD. 4. Hypertension. 5. COPD. 6. Active fibrillation. 7. Osteoarthritis. 8. Hypothyroid. 9. GERD. Comments and plan: At this time PT ongoing. OT prescribed. We'll need OT note for possible inpatient rehab. Patient and daughters report patient would currently with multiple restrictions with regard to mobility and this may in fact hamper inpatient rehab in favor of a slower course, i.e. convalescence or SNF.
--- NOTE | 2021-03-16 12:02 | P.DS ---
Providers Date of admission: 03/12/21 11:10 Expected date of discharge: 03/16/21 Attending physician: Mark Faulkner Consults: 03/12/21 10:47 Consult Physician Routine Consulting Provider: Alan Kelly Consult Reason/Comments: S1 & S2 fractures; Pelvic fractures Do you want consulting provider notified?: Yes 03/16/21 08:08 Consult Physician Routine Consulting Provider: Logan Amador Consult Reason/Comments: inpt rehab Do you want consulting provider notified?: Yes Primary care physician: Mark Faulkner Hospital Course: HISTORY OF PRESENT ILLNESS This is an 85-year-old female patient of Dr. Faulkner with past medical history of atrial fibrillation, COPD, gastroesophageal reflux disease, hypertension, degenerative joint disease, history of pneumonia, hypothyroidism. Patient presented to the emergency center following a fall about a month ago. Initial x-ray was negative of the left hip. She subsequently underwent a CAT scan of the left hip that showed left superior and inferior pelvic rami fracture. Patient has continued to have significant pain of the low back radiating down both legs, she was admitted to the hospital and seen by orthopedics. Orthopedics has recommended that to chair transfers only with ambulating only to the commode with use of a walker. Plan is for repeat x-rays in 3 weeks. Patient continues to have significant pain and is on Linwood which will be increased to 7.5 mg. She also complains of constipation and her last bowel movement was 2 days ago. Colace increased frequency scheduled and MiraLAX added. Patient is uninsured. Case was discussed with patient's daughter Mariah on the phone during examination. Physical therapy has recommended inpatient rehab and patient has been seen by Dr. Amador and patient may be accepted at [facility]. Second choice is for [facility]. DISCHARGE DIAGNOSES 1. Left superior and inferior pelvic rami fracture with intractable pain, failed outpatient treatment. 2. Atrial fibrillation, paroxysmal. 3. COPD. 4. Gastroesophageal reflux disease. 5. Hypertension. 6. Hypothyroidism DISCHARGE PLAN [facility] for inpatient rehab or [facility] for subacute rehab. Impression and plan of care have been directed as dictated by the signing physician. Lenora Fernandez nurse practitioner acting as scribe for signing physician. Patient Condition at Discharge: Serious Plan - Discharge Summary Discharge Rx Participant: No New Discharge Prescriptions: New polyethylene glycoL 3350 [Miralax] 17 gm PO DAILY powd.pack HYDROcodone/APAP 7.5-325MG [Linwood 7.5-325] 1 each PO Q4H PRN #18 tab PRN Reason: Pain Docusate [Colace] 100 mg PO BID cap Hydrocortisone Cream [Hydrocortisone 1% Cream] 1 applic TOPICAL QID PRN applic PRN Reason: Skin Irritation Continue Levothyroxine Sodium [Synthroid] 50 mcg PO QAM Apixaban [Eliquis] 5 mg PO BID #1 tab Omeprazole [PriLOSEC] 40 mg PO DAILY Atorvastatin [Lipitor] 20 mg PO DAILY Metoprolol Tartrate [Lopressor] 25 mg PO DAILY Vit C/E/Zn/Coppr/Lutein/Zeaxan [Preservision Areds 2 Softgel] 1 cap PO BID Amiodarone [Cordarone] 200 mg PO Q48H Loratadine [Claritin] 10 mg PO DAILY Cholecalciferol [Vitamin D3 (25 Mcg = 1000 Iu)] 50 mcg PO DAILY Biotin 5 mg PO DAILY Discharge Medication List Levothyroxine Sodium [Synthroid] 50 mcg PO QAM 03/21/17 [History] Apixaban [Eliquis] 5 mg PO BID #1 tab 03/27/17 [Rx] Atorvastatin [Lipitor] 20 mg PO DAILY 05/28/19 [History] Metoprolol Tartrate [Lopressor] 25 mg PO DAILY 05/28/19 [History] Omeprazole [PriLOSEC] 40 mg PO DAILY 05/28/19 [History] Vit C/E/Zn/Coppr/Lutein/Zeaxan [Preservision Areds 2 Softgel] 1 cap PO BID 08/22/19 [History] Amiodarone [Cordarone] 200 mg PO Q48H 12/03/19 [History] Biotin 5 mg PO DAILY 03/12/21 [History] Cholecalciferol [Vitamin D3 (25 Mcg = 1000 Iu)] 50 mcg PO DAILY 03/12/21 [History] Loratadine [Claritin] 10 mg PO DAILY 03/12/21 [History] Docusate [Colace] 100 mg PO BID cap 03/16/21 [Rx] HYDROcodone/APAP 7.5-325MG [Linwood 7.5-325] 1 each PO Q4H PRN #18 tab 03/16/21 [Rx] Hydrocortisone Cream [Hydrocortisone 1% Cream] 1 applic TOPICAL QID PRN applic 03/16/21 [Rx] polyethylene glycoL 3350 [Miralax] 17 gm PO DAILY powd.pack 03/16/21 [Rx] Follow up Appointment(s)/Referral(s): Mark Faulkner MD [Primary Care Provider] - 1-2 days Discharge Disposition: TRANSFER TO SNF/ECF
[2021-03-16 15:54] VITALS: BP 118/73; PULSE 63; TEMP 97.7
== END 2021-03-16 17:24 | DRG 536 ==
LOC: EC 08:25 → 4SSUR 11:10
PROVIDERS: ADMIT Internal Medicine; ATTEND Internal Medicine
DX: S32.512A Fracture of superior rim of left pubis, initial encounter for closed fracture (principal); S32.592A Other specified fracture of left pubis, initial encounter for closed fracture; W19.XXXA Unspecified fall, initial encounter; J44.9 Chronic obstructive pulmonary disease, unspecified; K21.9 Gastro-esophageal reflux disease without esophagitis; I48.0 Paroxysmal atrial fibrillation; I10 Essential (primary) hypertension; E03.9 Hypothyroidism, unspecified; Z87.01 Personal history of pneumonia (recurrent); Z90.49 Acquired absence of other specified parts of digestive tract; Z86.14 Personal history of Methicillin resistant Staphylococcus aureus infection; Z85.828 Personal history of other malignant neoplasm of skin; Z83.49 Family history of other endocrine, nutritional and metabolic diseases; Z96.1 Presence of intraocular lens; Z82.5 Family history of asthma and other chronic lower respiratory diseases; Z82.49 Family history of ischemic heart disease and other diseases of the circulatory system; Z82.3 Family history of stroke; Z80.8 Family history of malignant neoplasm of other organs or systems; Z80.3 Family history of malignant neoplasm of breast; Z79.890 Hormone replacement therapy; Z79.01 Long term (current) use of anticoagulants; R26.2 Difficulty in walking, not elsewhere classified; M19.90 Unspecified osteoarthritis, unspecified site; Z79.899 Other long term (current) drug therapy; K59.00 Constipation, unspecified; Z20.822 Contact with and (suspected) exposure to COVID-19
CPT/HCPCS: 71045; 72131; 72192; 80048; 80053; 81003; 85025; 87635; 96372; 99285

== ENCOUNTER → 2021-05-20 | Outpatient (CLI) | payer MEDICARE ==
[~2021-05-20] MED LIST changes: +DENOSUMAB 60 MG/ML 1 ML SYRINGE SQ NR; -LACTATED RINGERS 1,000 ML IV SCH; -LIDOCAINE 1% 20 ML VIAL (10MG/ML) FOR IV START INTRADERMA PRN
[2021-05-20 09:28] VITALS: BP 139/77; PULSE 69; RESP 16; TEMP 98.1
== END ==
LOC: PROCWHC3 09:19
PROVIDERS: ATTEND Internal Medicine
DX: M81.0 Age-related osteoporosis without current pathological fracture (principal); Z91.041 Radiographic dye allergy status; Z88.5 Allergy status to narcotic agent; Z91.040 Latex allergy status; Z88.1 Allergy status to other antibiotic agents; Z88.2 Allergy status to sulfonamides; Z91.048 Other nonmedicinal substance allergy status
CPT/HCPCS: 96372; J0897

== ENCOUNTER → 2021-08-05 | Outpatient (CLI) | payer MEDICARE ==
[2021-08-05 08:50] VITALS: BP 133/83; PULSE 64; RESP 18; TEMP 97.5
--- NOTE | 2021-08-05 09:25 | P.PAINCN ---
History of Present Illness - Reason for Consult Consult date: 08/05/21 - History of Present Illness This is 86 years old female with a chronic history of severe low back pain with radiation to the left lower extremity, occasional numbness and tingling sensation, started in January 2021, after she had a falling accident, she later on was admitted to [facility] , and computed tomography scan of the pelvis and lumbar spine done and it showed that patient had left pubic Rami fracture, and patient had lumbar degenerative disc disease, patient denies any motor deficit, reporting that any activity aggravates her pain, and she is not admitted to ambulate more than a few minutes then she started having severe pain, she tried physical therapy and she did not benefit from it, and she tried Tylenol and she had no benefit from it Past Medical History Past Medical History: Atrial Fibrillation, Cancer, COPD, GERD/Reflux, Hypertension, Osteoarthritis (OA), Pneumonia, Thyroid Disorder Additional Past Medical History / Comment(s): hiatal hernia, Cystic breasts, basal cell carcinoma from nose, 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 pelvis vertebral fx.'s end of January History of Any Multi-Drug Resistant Organisms: MRSA Year Discovered:: 03/21/2017 MDRO Source:: left buttock/left labia Past Surgical History: Appendectomy, Breast Surgery, Tonsillectomy Additional Past Surgical History / Comment(s): Varicose vein stripping, bilateral cataract removal and intraocular lens implants, skin biopsies and skin cancer removal, sissy breast lumpectomy/cyst exc, I&D 03/15/17 and 03/21/17 of left buttock and left labia, Colonoscopy Past Anesthesia/Blood Transfusion Reactions: Family History of Problems w/ Anesthesia, Motion Sickness, Postoperative Nausea & Vomiting (PONV) Additional Past Anesthesia/Blood Transfusion Reaction / Comm: family hx of n/v with anesthesia. No hx blood transfusion Past Psychological History: No Psychological Hx Reported Smoking Status: Never smoker Past Alcohol Use History: Rare Additional Past Alcohol Use History / Comment(s): Patient is lifelong nonsmoker but she did have years of exposure to secondhand smoke. 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 She denies any medical marijuana, marijuana, street drug use. She drinks alcohol very rare basis. Past Drug Use History: None Reported - Past Family History Mother Family Medical History: AICD/Pacemaker, CVA/TIA, Thyroid Disorder Father Family Medical History: Cancer, COPD, GI Bleed Sister(s) Family Medical History: Cancer Additional Family Medical History / Comment(s): breast Daughter(s) Family Medical History: Cancer Additional Family Medical History / Comment(s): thyroid. granddtr-thyroid ca Medications and Allergies Home Medications Medication Instructions Recorded Confirmed Type Levothyroxine Sodium [Synthroid] 50 mcg PO QAM 03/21/17 08/05/21 History Apixaban [Eliquis] 5 mg PO BID #1 tab 03/27/17 08/05/21 Rx Atorvastatin [Lipitor] 20 mg PO DAILY 05/28/19 08/05/21 History Metoprolol Tartrate [Lopressor] 25 mg PO DAILY 05/28/19 08/05/21 History Omeprazole [PriLOSEC] 40 mg PO DAILY 05/28/19 08/05/21 History Amiodarone [Cordarone] 200 mg PO Q48H 12/03/19 08/05/21 History Biotin 5 mg PO DAILY 03/12/21 08/05/21 History Loratadine [Claritin] 10 mg PO DAILY 03/12/21 08/05/21 History Allergies Allergy/AdvReac Type Severity Reaction Status Date / Time iodine Allergy Unknown Unknown Verified 08/02/21 14:48 morphine Allergy Unknown Unknown Verified 08/02/21 14:48 aloe Allergy Unknown Verified 08/02/21 14:48 codeine Allergy Unknown Verified 08/02/21 14:48 piperacillin [From Zosyn] Allergy Rash/Hives Verified 08/02/21 14:48 Sulfa (Sulfonamide Allergy Unknown Verified 08/02/21 14:48 Antibiotics) tazobactam [From Zosyn] Allergy Rash/Hives Verified 08/02/21 14:48 Physical Exam Vitals: Vital Signs Temp Pulse Resp BP Pulse Ox 08/05/21 08:44 97.5 F L 64 18 133/83 95 Physical Examinations : -Constitutiona : Cooperative , not in acute distress . -HEENT : nech : supple , no Lymphadenopathy , normal thyroid size . : eyes : no ptosis , no icterus, no photophobia . - neurologic : Cranial nerve II to XII intact , no focal neurological deffecit . -psychatric : alert , oriented X 3 , appropriate affect , intact judgment and insight . -Lymphatic : no Lymphadenopathy . - musculoskeltal : Lumber spine moter stegnth lower extremities ,thigh and legs 5/5 Right side , 5/5 Left side deep tendon reflexes : normal Knee Jerk , normal ankle Jerk lumber facet Loading Test =positive Right , positive Left Range of motion of the lumbar spine Flexion 30 degrees, extension 10 degrees strait leg raising test = positive at 30 degree on the left side and is negative on the right side Fabere test= negative Right , and positive LT . tenderness over the Sacroiliac joint on the Right , and Left sides Results Comments: CT scan of the lumbar spine and lumbar degenerative disc disease, lumbar spondylosis with lumbar facet arthropathy. CT scan of the pelvic= fracture at the left pubic Rami Assessment and Plan Plan: Assessment and plan=1-lumbar radiculopathy. 2-lumbar degenerative disc disease. 3-Lumbar spondylosis with lumbar facet arthropathy. She could benefit from lumbar epidural steroid injection at L4-L5 left paramedian approach, we have to hold ELiQUIS for 3 days before the procedure well as cardiology approval to hold liquids for 3 days Time with Patient: Greater than 30 PQRS Measure Charge Sheet Measure #130: Documentation of Current Meds in Medical Chart: Patient's medications documented in chart Measure #226: Tobacco Use: Screen & Cessation Intervention: Pt not a tobacco user Measure #111: Pneumonia Vaccination: Pneumococcal vaccine administered or previously received Measure #47: Advance Care Plan: Advance care planning discussed & documented, pt chose/unable to give Measure #412: Opioid Treatment Agreement: No documentation of signed opioid treatment agreement Measure #408: Opioid Therapy Follow-up Evaluation: Patient had NO f/u eval minimum every 3 months during opioid therapy Measure #317: Preventitive Care & Scrn High Bld Press & F/U: Normal blood pressure, f/u not required Measure #128: Body Mass Index (BMI) Screening & Follow-up: BMI documented ABOVE normal parameters - f/u documented Measure #131: Pain Assessment & Follow-up: Pain positive & plan documented, Follow-up scheduled Measure #431: Unhealthy Alcohol Use Preventative Care & Scrn: Patient not identified as an unhealthy alcohol user Mode of Arrival: Ambulatory - Pain Location Lower Back Non-Pharmacological Interventions: Home Exercise, Inactivity, Physical Therapy, Stretching Pharmacological Interventions: PRN Medication PQRS Narrative: Smoking Status Never smoker Blood Pressure 133/83 Pain Intensity [Lower Back] 4 Scale Used Numeric (1 - 10) Hx Alcohol Use (MH) No Home Medications: Ambulatory Orders Levothyroxine Sodium [Synthroid] 50 mcg PO QAM 03/21/17 Apixaban [Eliquis] 5 mg PO BID #1 tab 03/27/17 Atorvastatin [Lipitor] 20 mg PO DAILY 05/28/19 Metoprolol Tartrate [Lopressor] 25 mg PO DAILY 05/28/19 Omeprazole [PriLOSEC] 40 mg PO DAILY 05/28/19 Amiodarone [Cordarone] 200 mg PO Q48H 12/03/19 Biotin 5 mg PO DAILY 03/12/21 Loratadine [Claritin] 10 mg PO DAILY 03/12/21
== END ==
LOC: PNWHC3 08:36
PROVIDERS: ATTEND Specialist
DX: M51.16 Intervertebral disc disorders with radiculopathy, lumbar region (principal); M47.26 Other spondylosis with radiculopathy, lumbar region; I10 Essential (primary) hypertension; M19.90 Unspecified osteoarthritis, unspecified site; I48.91 Unspecified atrial fibrillation; J44.9 Chronic obstructive pulmonary disease, unspecified; K21.9 Gastro-esophageal reflux disease without esophagitis; Z79.899 Other long term (current) drug therapy; Z88.5 Allergy status to narcotic agent; Z91.041 Radiographic dye allergy status; Z88.2 Allergy status to sulfonamides; Z88.1 Allergy status to other antibiotic agents
CPT/HCPCS: 99211

== ENCOUNTER → 2021-10-13 | Outpatient (CLI) | payer MEDICARE ==
--- NOTE | 2021-10-15 11:23 | MM ---
Reason for exam: screening (asymptomatic). Last mammogram was performed 3 years and 6 months ago. History: Patient is postmenopausal, is of Ashkenazi [place] descent, and history of other cancer. Family history of breast cancer in sister at age 50, breast cancer in daughter at age 50, and breast cancer in maternal aunt at age 50. Excisional biopsy of both breasts, 1982. Physical Findings: A clinical breast exam by your physician is recommended on an annual basis and results should be correlated with mammographic findings. MG 3D Screening Mammo W/Cad Bilateral CC and MLO view(s) were taken. Prior study comparison: April 19, 2018, bilateral MG 3d screening mammo w/cad. March 02, 2017, bilateral MG 3d screening mammo w/cad. There are scattered fibroglandular densities. These results were verbally communicated with the patient and result sheet given to the patient on left breast. Stable lateral right focal asymmetry. Bilateral post excisional changes. No significant changes when compared with prior studies. ASSESSMENT: Benign, BI-RAD 2 RECOMMENDATION: Routine screening mammogram of both breasts in 1 year.
== END | disposition home or self-care (01) ==
LOC: RADMAMWWP 14:55
PROVIDERS: ATTEND Internal Medicine
DX: Z12.31 Encounter for screening mammogram for malignant neoplasm of breast (principal); Z80.3 Family history of malignant neoplasm of breast; Z78.0 Asymptomatic menopausal state
CPT/HCPCS: 77063; 77067

== ENCOUNTER 2021-11-11 07:55 | Day surgery (SDC) | payer MEDICARE ==
[2021-11-09 10:55] VITALS: BMI 27.5
[~2021-11-11 07:55] MED LIST changes: -DENOSUMAB 60 MG/ML 1 ML SYRINGE SQ NR; +LACTATED RINGERS 1,000 ML IV SCH
[2021-11-11 08:20] VITALS: TEMP 97.1
[2021-11-11] MEDS ORDERED: MIDAZOLAM 2 MG/2 ML VIAL ONE (08:32)
[2021-11-11] MEDS ORDERED: methylPREDNISolone ACETATE 40 MG/ML 1 ML VIAL ONE (08:32)
[2021-11-11] MEDS ORDERED: fentaNYL (PF) 50 MCG/ML 2 ML AMP ONE (08:32)
--- NOTE | 2021-11-11 08:52 | P.PCN ---
Date of Procedure: 11/11/21 Procedure(s) Performed: PREOPERATIVE DIAGNOSIS: 1- Lumbar Degenerative Disc Diseases 2-Lumbar spondylosis with Facet arthropathy without myelopathy. 3-lumbar radiculopathy. POSTOPERATIVE DIAGNOSIS: Same as preop diagnosis. PROCEDURE 1. Lumbar epidural steroid injection under fluoroscopic guidance at the L4-5 level. (Fluoroscopy imaging was available in radiology department) ANESTHESIA: Local with 1% lidocaine 3 ml and , moderate sedation with intravenous Versed 1 mg ,and fentanyle 50 Mcg EBL: Minimal PROCEDURE INDICATION: The patient with low back pain and radiculitis symptoms unresponsive to conservative treatment. Fluoroscopy was used to optimize visualization of the needle placement and to maximize safety. PROCEDURE DESCRIPTION / TECHNIQUE: The patient was seen and identified in the preoperative area. Risks, benefits, complications including but not limited to infections ,bleeding ,allergic reaction to the medications ,nerve damage and not complete pain releife , and alternatives were discussed with the patient. The patient agreed to proceed with the procedure and signed the consent. IV was started, and vital signs were stable. Patient was taken to the OR and time out was completed. The patient was placed in the prone position on procedure table and a pillow was placed under the abdomen to reduce lumbar lordosis. The lumbosacral area was prepped and draped in the usual sterile fashion.ere closely monitored during the procedure. C onscious sedation was used during the procedure to decrease patients anxiety. Vital signs was monitered during the entire procedure. Using anterior-posterior fluoroscopy, the L4-5 interlaminar space was identified and the skin over this site was marked and then infiltrated with 1% lidocaine subcutaneously. Subsequently, a 20-gauge Tuohy epidural needle was inserted and advanced toward the epidural space using the ``Loss of resistance technique and guided by AP and lateral fluoroscopy, after negative aspiration for blood and CSF and in the absence of paresthesias. Again after negative aspiration, a 6 ml mixture containing 40 mg of Depo-medrol , and 2 ml of preservative free Normal Saline, and 2 ml of preservative free lidocaine 1% solution was injected and a washout of epidurogram was seen. Needle was withdrawn intact, skin was cleansed, and bandages were applied. COMPLICATIONS: None DISPOSITION / PLANS: The patient was placed in a supine position and transferred to the recovery area in a stable condition for observation. There was no evidence of lower extremity motor or sensory deficit after the procedure. Patient was discharged from the recovery room after meeting discharge criteria. Home discharge instructions were given to the patient by the staff. The patient was reexamined prior to discharge. The patient will schedule a follow up in the clinic in 2-4 weeks. note= last dose of the ELEQUIS was more than 72 hours ago. note= Omnipaque was not used because patient had agreed to IVP dye
[2021-11-11] MEDS ORDERED: IV FLUID CONTINUATION 1,000 ML IV ONE (08:53)
[2021-11-11 08:56] VITALS: RESP 16
--- NOTE | 2021-11-11 09:08 | FL ---
Fluoroscopy INDICATION: Pain FINDINGS: Fluoroscopy time: 3 seconds. Images obtained: 1. IMPRESSIONS: 1. Documentation of fluoroscopy.
[2021-11-11 09:26] VITALS: BP 113/77; PULSE 57
== END 2021-11-11 09:45 | disposition home or self-care (01) ==
LOC: ORPAIN 07:55
PROVIDERS: ATTEND Specialist
DX: M51.36 Other intervertebral disc degeneration, lumbar region (principal); M51.26 Other intervertebral disc displacement, lumbar region; M51.16 Intervertebral disc disorders with radiculopathy, lumbar region; M47.26 Other spondylosis with radiculopathy, lumbar region; I25.10 Atherosclerotic heart disease of native coronary artery without angina pectoris; Z88.5 Allergy status to narcotic agent; Z88.0 Allergy status to penicillin; Z91.048 Other nonmedicinal substance allergy status; Z79.01 Long term (current) use of anticoagulants
CPT/HCPCS: 62323; J2250; J1030; J3010; 99152

== ENCOUNTER → 2021-11-23 | Outpatient (CLI) | payer MEDICARE ==
[~2021-11-23] MED LIST changes: +DENOSUMAB 60 MG/ML 1 ML SYRINGE SQ ONE; -LACTATED RINGERS 1,000 ML IV SCH
[2021-11-23 09:27] VITALS: BP 165/88; RESP 59; TEMP 97.7
== END ==
LOC: PROCWHC3 09:14
PROVIDERS: ATTEND Internal Medicine
DX: M81.0 Age-related osteoporosis without current pathological fracture (principal); S12.000D Unspecified displaced fracture of first cervical vertebra, subsequent encounter for fracture with routine healing; Z91.041 Radiographic dye allergy status; Z88.5 Allergy status to narcotic agent; Z88.2 Allergy status to sulfonamides; Z88.1 Allergy status to other antibiotic agents; Z91.09 Other allergy status, other than to drugs and biological substances; Z88.8 Allergy status to other drugs, medicaments and biological substances
CPT/HCPCS: 96372; J0897

== ENCOUNTER 2021-12-16 07:47 | Day surgery (SDC) | payer MEDICARE ==
[2021-12-15 13:59] VITALS: BMI 26.9
[2021-12-16] MEDS ORDERED: LACTATED RINGERS 1,000 ML IV ONE (08:36)
[2021-12-16 08:47] VITALS: TEMP 98.3
[2021-12-16] MEDS ORDERED: methylPREDNISolone ACETATE 40 MG/ML 1 ML VIAL ONE (09:23)
[2021-12-16] MEDS ORDERED: MIDAZOLAM 2 MG/2 ML VIAL ONE (09:23)
[2021-12-16] MEDS ORDERED: fentaNYL (PF) 50 MCG/ML 2 ML AMP ONE (09:23)
--- NOTE | 2021-12-16 09:38 | P.PCN ---
Date of Procedure: 12/16/21 Description of Procedure: Procedure: 1. L4-L5 Epidural steroid injection under fluoroscopic guidance # 1/ , 2. Lumbar epidurogram PREOPERATIVE DIAGNOSIS: Lumbar degenerative disc disease, and Lumbar radiculopathy. POSTOPERATIVE DIAGNOSIS: Lumbar degenerative disc disease, and Lumbar radiculopathy. SURGEON: Caro Kapadia ANESTHESIA: Local with 1% lidocaine, and IV sedation : Versed 1 mg, and fentanyl 50 g EBL: None. Specimen removed: None Fluoroscopic image: saved to electronic medical records PROCEDURE INDICATION: The patient had history of Lumbar degenerative disc disease and Lumbar radiculopathy. Failed to conservative therapy. Presented for epidural steroid injection. PROCEDURE DESCRIPTION: The patient was seen and identified in the preoperative area. Risks, benefits, complications, and alternatives were discussed with the patient. The patient agreed to proceed with the procedure and signed the consent. IV was started, and vital signs were stable. Patient was taken to the procedure area, and time out was completed. The patient was placed in the prone position on procedure table and a pillow was placed under the abdomen to reduce lumbar lordosis. The lumbosacral area was prepped and draped in the usual sterile fashion. Critical pause was taken. Vital signs were closely monitored during the procedure. Using anterior-posterior fluoroscopy, the L4-L5 interlaminar space was identified, and skin and deeper tissues were localized with 1% lidocaine. Using anterior-posterior fluoroscopy, lateral fluoroscopy, and [id number] technique, a 20 gauge 3.5 Tuohy epidural needle entered the epidural space. After negative aspiration of CSF and blood with no paresthesias, 10 mL of block solution was injected into the epidural space. Block solution contained 80 mg of Depo-Medrol, and 9 mL of preservative-free normal saline with intermittent n egative aspiration. . Needle was withdrawn intact, skin was cleansed, and bandages were applied. No contrast was injected as patient is ALLERGIC to iodine. COMPLICATIONS: None. DISPOSITION / PLANS: The patient was placed in a supine position and transferred to the recovery area in a stable condition for observation. Patient was discharged from the recovery room after meeting discharge criteria. Home discharge instructions given to the patient by the staff. The patient was reexamined prior to discharge. The patient will schedule a follow up in the clinic in 4 weeks.
[2021-12-16] MEDS ORDERED: IV FLUID CONTINUATION 750 ML IV ONE (09:44)
[2021-12-16] MEDS ORDERED: LACTATED RINGERS 1,000 ML IV SCH (09:45)
[2021-12-16 09:48] VITALS: BP 132/58; PULSE 60; RESP 27
--- NOTE | 2021-12-16 10:58 | FL ---
EXAMINATION TYPE: FL guided pain mgmt statistic DATE OF EXAM: 12/16/2021 CLINICAL HISTORY: Lumbar epidural injection TECHNIQUE: Fluoroscopy. COMPARISON: Fluoroscopy dated 11/11/2021 FINDINGS: Fluoroscopic guidance was provided during the procedure. A total of 3 seconds of fluorosco pic time was utilized during the procedure and 2 spot images were acquired. IMPRESSION: As Above.
== END 2021-12-16 10:05 | disposition home or self-care (01) ==
LOC: ORPAIN 07:47
DX: M51.16 Intervertebral disc disorders with radiculopathy, lumbar region (principal); M19.90 Unspecified osteoarthritis, unspecified site; I48.91 Unspecified atrial fibrillation; Z88.5 Allergy status to narcotic agent; Z91.048 Other nonmedicinal substance allergy status
CPT/HCPCS: 62323; J2250; J1030; J3010; 99152

== ENCOUNTER → 2022-02-02 | Outpatient (CLI) | payer MEDICARE ==
--- NOTE | 2022-02-02 10:44 | P.PN ---
Subjective Progress Note Date: 02/02/22 Principal diagnosis: A 86 yr old female with a history of severe and chronic low back pain secondary to lumbar degenerative disc diseases and lumbar spondylosis with facet arthropathy presents today for evaluation status post left paramedian L4-L5 SEEMA #2. Patient states she experienced 50% pain relief status post procedure. Pain level is currently at 6 out of 10 in intensity, constant, sharp, achy pain in the lower aspects of the lumbar spine with shooting pain occasionally down the left lower extremity. Pain is provoked by bending, standing or walking for periods of 15 minutes or more. Pain is alleviated with medications, injections, heat, 1 treatment of physical therapy which provided no relief and rest. Interventional pain procedures completed include left paramedian SEEMA L4-L5 #2 Patient is currently on Tylenol OTC Patient denies any side effects of the medication(s), denies excessive drowsiness or sleepiness, denies suicidal ideation and reports that the current pain medication is helping to control the pain and improve activities of daily living. Patient denies any motor or sensory deficits. Patient denies any fever or night sweats, denies any change in the bowel movements or urination. Physical Examination: -Constitutional: Cooperative. Not in acute distress . -HEENT: Neck is supple. No lymphadenopathy. No thyromegaly. Normal thyroid size. Eyes: No ptosis , no icterus, no photophobia. ENT: No auditory deficits. Normal oropharynx. No Thrush. - Respiratory: Chest clear to auscultations bilaterally. No wheezing. No rhonchi. - Cardiovascular: Regular rate and rhythm. S1 / S2 , no S3 , no S4. - Gastrointestinal: Abdomen soft no tenderness. Bowel sounds positive in all four quadrants. No organomegaly. - Genitourinary: Deferred. - Neurologic: Cranial nerve II to XII intact. No focal neurological deficits. - Psychatric: Alert & oriented x 3. Matching mood & appropriate affect. Judgment and insight intact. - Lymphatic: No Lymphadenopathy. - Musculoskeletal: Cervical spine: Muscle bulk/ tone/ strength in the bilateral upper extremities normal. Facet loading test cervical area positive. Lumbar spine: Motor bulk/ tone/ strength lower extremities , thigh and legs : 5/5 Deep tendon reflexes : Normal Knee Jerk. Normal Ankle Jerk . Vertebral body tenderness to palpation over L4 Lumbar Facet Loading Test positive Straight Leg Raise: positive at 30 degrees right side/ left side Gaenslen's Test positive Sacral spine : Severe tenderness over the Sacroiliac joint: right side / left side Range of motion: Flexion of the lumbar spine <60 degrees Range of motion: Extension of the lumbar spine <20 degrees Gaenslen's Test positive Mela test: positive right side / left side Assessment and plan: Chronic low back pain secondary to lumbar degenerative disc disease , lumbar spondylosis with facet arthropathy without myelopathy Recommendation of left paramedian L4-L5 SEEMA #3. Risks, benefits of procedure discussed and patient verbalized understanding. Admits to Eliquis use. Denies medical history of diabetes. Protocol for discontinuation/ continuation of medications lenore procedure discussed. All patient questions answered MAPS reviewed and it was appropriate. I have spent 31 minutes on patient care today. Dr Monteiro was available by phone for the evaluation of this patient. The time was used to review the medical records including relevant urine studies and Prescription history (MAPs), review of the available imaging, evaluation and examination of the patient, coordination of care with the medical staff and if applicable referring physicians, as well as creation of the medical record PQRS Measure Charge Sheet PQRS Narrative: Smoking Status Never smoker Pain Intensity [Back] 9 Hx Alcohol Use (MH) No Home Medications: Ambulatory Orders Levothyroxine Sodium [Synthroid] 50 mcg PO QAM 03/21/17 Atorvastatin [Lipitor] 20 mg PO DAILY 05/28/19 Metoprolol Tartrate [Lopressor] 25 mg PO DAILY 05/28/19 Omeprazole [PriLOSEC] 40 mg PO DAILY 05/28/19 Amiodarone [Cordarone] 200 mg PO Q48H 12/03/19 Apixaban [Eliquis] 5 mg PO DAILY 11/08/21 Ascorbic Acid [Vitamin C] 1,000 mg PO DAILY 11/09/21 Cholecalciferol [Vitamin D3 (25 Mcg = 1000 Iu)] 25 mcg PO DAILY 11/09/21 Multivitamins, Thera [Multivitamin (formulary)] 1 tab PO DAILY 11/09/21 Vit C/E/Zn/Coppr/Lutein/Zeaxan [Preservision Areds 2 Softgel] 2 each PO DAILY 11/09/21
[2022-02-02 10:59] VITALS: BP 145/80; PULSE 56; RESP 18; TEMP 97.8
== END ==
LOC: PNWHC3 10:17
PROVIDERS: ATTEND Specialist
DX: G89.29 Other chronic pain (principal); M51.36 Other intervertebral disc degeneration, lumbar region; M47.816 Spondylosis without myelopathy or radiculopathy, lumbar region; Z79.01 Long term (current) use of anticoagulants; Z91.041 Radiographic dye allergy status; Z88.5 Allergy status to narcotic agent; Z88.1 Allergy status to other antibiotic agents; Z88.2 Allergy status to sulfonamides; Z91.09 Other allergy status, other than to drugs and biological substances
CPT/HCPCS: 99211

== ENCOUNTER → 2022-03-10 | Day surgery (SDC) | payer MEDICARE ==
[2022-03-09 14:17] VITALS: BMI 27.0
[~2022-03-10] MED LIST changes: -DENOSUMAB 60 MG/ML 1 ML SYRINGE SQ ONE; +LACTATED RINGERS 1,000 ML IV ONE; +MIDAZOLAM 2 MG/2 ML VIAL ONE; +fentaNYL (PF) 50 MCG/ML 2 ML AMP ONE; +methylPREDNISolone ACETATE 40 MG/ML 1 ML VIAL ONE
[2022-03-10 10:42] VITALS: BP 166/83; PULSE 60; RESP 14; TEMP 96.8
--- NOTE | 2022-03-10 14:48 | P.PCN ---
Date of Procedure: 03/10/22 Procedure(s) Performed: PREOPERATIVE DIAGNOSIS: 1- Lumbar Degenerative Disc Diseases 2-Lumbar spondylosis with Facet arthropathy without myelopathy. 3-lumbar radiculopathy. POSTOPERATIVE DIAGNOSIS: Same as preop diagnosis. PROCEDURE 1. Lumbar epidural steroid injection under fluoroscopic guidance at the L4-5 level. (Fluoroscopy imaging was available in radiology department) ANESTHESIA: Local with 1% lidocaine 3 ml and , moderate sedation with intravenous Versed 1 mg ,and fentanyle 50 Mcg EBL: Minimal PROCEDURE INDICATION: The patient with low back pain and radiculitis symptoms unresponsive to conservative treatment. Fluoroscopy was used to optimize visualization of the needle placement and to maximize safety. PROCEDURE DESCRIPTION / TECHNIQUE: The patient was seen and identified in the preoperative area. Risks, benefits, complications including but not limited to infections ,bleeding ,allergic reaction to the medications ,nerve damage and not complete pain releife , and alternatives were discussed with the patient. The patient agreed to proceed with the procedure and signed the consent. IV was started, and vital signs were stable. Patient was taken to the OR and time out was completed. The patient was placed in the prone position on procedure table and a pillow was placed under the abdomen to reduce lumbar lordosis. The lumbosacral area was prepped and draped in the usual sterile fashion.ere closely monitored during the procedure. Conscious sedation was used during the procedure to decrease patients anxiety. Vital signs was monitered during the entire procedure. Using anterior-posterior fluoroscopy, the L4-5 interlaminar space was identified and the skin over this site was marked and then infiltrated with 1% lidocaine subcutaneously. Subsequently, a 20-gauge Tuohy epidural needle was inserted and advanced toward the epidural space using the ``Loss of resistance technique and guided by AP and lateral fluoroscopy, after negative aspiration for blood and CSF and in the absence of paresthesias. Again after negative aspiration, a 6 ml mixture containing 40 mg of Depo-medrol , and 2 ml of preservative free Normal Saline, and 2 ml of preservative free lidocaine 1% solution was injected and a washout of epidurogram was seen. Needle was withdrawn intact, skin was cleansed, and bandages were applied. COMPLICATIONS: None DISPOSITION / PLANS: The patient was placed in a supine position and transferred to the recovery area in a stable condition for observation. There was no evidence of lower extremity motor or sensory deficit after the procedure. Patient was discharged from the recovery room after meeting discharge criteria. Home discharge instructions were given to the patient by the staff. The patient was reexamined prior to discharge. The patient will schedule a follow up in the clinic in 2-4 weeks. note= last dose of the ELEQUIS was more than 72 hours ago. note= Omnipaque was not used because patient had agreed to IVP dye
--- NOTE | 2022-03-10 16:22 | FL ---
Fluoroscopy INDICATION: Pain FINDINGS: Fluoroscopy time: 1 seconds. Images obtained: 1. IMPRESSIONS: 1. Documentation of fluoroscopy.
== END ==
LOC: ORPAIN 10:15
PROVIDERS: ATTEND Specialist
DX: M51.16 Intervertebral disc disorders with radiculopathy, lumbar region (principal)
CPT/HCPCS: 62323

== ENCOUNTER → 2022-03-28 | Outpatient (CLI) | payer MEDICARE ==
[2022-03-28 10:13] VITALS: BP 137/61; PULSE 57; RESP 18; TEMP 98.4
--- NOTE | 2022-03-28 10:25 | P.PAINPG ---
Objective - Vital Signs Vital signs: Vital Signs Temp 98.4 F 03/28/22 10:09 Pulse 57 L 03/28/22 10:09 Resp 18 03/28/22 10:09 BP 137/61 03/28/22 10:09 Pulse Ox 96 03/28/22 10:09 FiO2 Intake & Output 03/27/22 03/28/22 03/28/22 18:59 06:59 18:59 Weight 74.843 kg PQRS Measure Charge Sheet Mode of Arrival: Ambulatory Comment: A 86 yr old female with a history of severe and chronic low back pain secondar y to lumbar degenerative disc diseases and lumbar spondylosis with facet arthropathy presents today for evaluation status post LESI L4-L5 #3. She states she expressed 50% pain relief status post procedure and thinks it was not as effective as the prior ones. Pain level is readily at 2 out of 10 in intensity, sharp, throbbing in the left lower aspect of the lumbar spine with radiation of pain to the left buttock and left lower extremity. Pain is provoked by standing and walking for periods of 10 minutes or more. Pain is alleviated with indications, injections, heat, physical therapy in June 2021, home exercise regimen, repositioning and rest. Interventional pain procedures completed include LESI L4-L5 3 Patient is currently on Tylenol OTC Patient denies any side effects of the medication(s), denies excessive drowsiness or sleepiness, denies suicidal ideation and reports that the current pain medication is helping to control the pain and improve activities of daily living. Patient denies any motor or sensory deficits. Patient denies any fever or night sweats, denies any change in the bowel movements or urination. Physical Examination: -Constitutional: Cooperative. Not in acute distress . -HEENT: Neck is supple. No lymphadenopathy. No thyromegaly. Normal thyroid size. Eyes: No ptosis , no icterus, no photophobia. ENT: No auditory deficits. Normal oropharynx. No Thrush. - Respiratory: Chest clear to auscultations bilaterally. No wheezing. No rhonchi. - Cardiovascular: Regular rate and rhythm. S1 / S2 , no S3 , no S4. - Gastrointestinal: Abdomen soft no tenderness. Bowel sounds positive in all four quadrants. No organomegaly. - Genitourinary: Deferred. - Neurologic: Cranial nerve II to XII intact. No focal neurological deficits. - Psychatric: Alert & oriented x 3. Matching mood & appropriate affect. Judgment and insight intact. - Lymphatic: No Lymphadenopathy. - Musculoskeletal: Cervical spine: Muscle bulk/ tone/ strength in the bilateral upper extremities normal Vertebral body tenderness to palpation over Facet loading test positive Thoracic spine Muscle bulk / tone/ strength in the bilateral paraspinal muscles normal Vertebral body tender to palpation over Facet loading test positive Lumbar spine: Motor bulk/ tone/ strength lower extremities , thigh and legs : 5/5 Deep tendon reflexes : Normal Knee Jerk. Normal Ankle Jerk . Vertebral body tenderness to palpation over Lumbar Facet Loading Test positive over L L4-L5, L5-S1 with jump reflex Straight Leg Raise: positive at 30 degrees right side/ left side Gaenslen's Test positive Sacral spine : Severe tenderness over the Sacroiliac joint: right side / left side Range of motion: Flexion of the lumbar spine <60 degrees Range of motion: Extension of the lumbar spine <20 degrees Gaenslen's Test positive Abdulaziz's Test positive Mela test: positive right side / left side Thigh Thrust Test Sacral Thrust Test Assessment and plan: Chronic low back pain secondary to lumbar degenerative disc disease , lumbar spondylosis with facet arthropathy without myelopathy Recommendation of L facet blocks medial branch L4-L5, L5-S1 #1. May need a series of injections, up until RFA, for optimal pain relief. Risks, benefits of procedure discussed and pt verbalized understanding. Denies a medical history of diabetes. Admits to Eliquis use. Protocol for discontinuation of medications lenore procedure discussed. All patient questions answered MAPS reviewed and it was appropriate. I have spent 31 minutes on patient care today. Dr Monteiro was available by phone for the evaluation of this patient. The time was used to review the medical records including relevant urine studies and Prescription history (MAPs), review of the available imaging, evaluation and examination of the patient, coordination of care with the medical staff and if applicable referring physicians, as well as creation of the medical record - Pain Location Lower Back Non-Pharmacological Interventions: Heat, Home Exercise, Inactivity, Physical Therapy, Position/Reposition, Stretching Pharmacological Interventions: Epidural, PRN Medication PQRS Narrative: Smoking Status Never smoker Blood Pressure 137/61 Pain Intensity [Lower Back] 2 Scale Used Numeric (1 - 10) Hx Alcohol Use (MH) No Home Medications: Ambulatory Orders Levothyroxine Sodium [Synthroid] 50 mcg PO QAM 03/21/17 Atorvastatin [Lipitor] 20 mg PO DAILY 05/28/19 Metoprolol Tartrate [Lopressor] 25 mg PO DAILY 05/28/19 Amiodarone [Cordarone] 200 mg PO Q48H 12/03/19 Apixaban [Eliquis] 5 mg PO DAILY 11/08/21 Ascorbic Acid [Vitamin C] 1,000 mg PO DAILY 11/09/21 Cholecalciferol [Vitamin D3 (25 Mcg = 1000 Iu)] 25 mcg PO DAILY 11/09/21 Multivitamins, Thera [Multivitamin (formulary)] 1 tab PO DAILY 11/09/21 Vit C/E/Zn/Coppr/Lutein/Zeaxan [Preservision Areds 2 Softgel] 2 each PO DAILY 11/09/21 Controlled Substance Measures - Controlled Substance Measures Is patient prescribed a controlled substance at discharge?: No
== END ==
LOC: PNWHC3 09:57
PROVIDERS: ATTEND Specialist
DX: M51.36 Other intervertebral disc degeneration, lumbar region (principal); M47.816 Spondylosis without myelopathy or radiculopathy, lumbar region; G89.29 Other chronic pain; Z88.5 Allergy status to narcotic agent; Z88.2 Allergy status to sulfonamides; Z91.041 Radiographic dye allergy status; Z91.09 Other allergy status, other than to drugs and biological substances
CPT/HCPCS: 99211

== ENCOUNTER 2022-05-06 07:54 | Day surgery (SDC) | payer MEDICARE ==
[2022-05-05 12:35] VITALS: BMI 27.0
[~2022-05-06 07:54] MED LIST changes: -LACTATED RINGERS 1,000 ML IV ONE; +LACTATED RINGERS 1,000 ML IV SCH; -MIDAZOLAM 2 MG/2 ML VIAL ONE; -fentaNYL (PF) 50 MCG/ML 2 ML AMP ONE; -methylPREDNISolone ACETATE 40 MG/ML 1 ML VIAL ONE
[2022-05-06 08:13] VITALS: RESP 16; TEMP 98.3
[2022-05-06] MEDS ORDERED: ONDANSETRON 4 MG/2 ML VIAL ONE (08:36)
[2022-05-06] MEDS ORDERED: MIDAZOLAM 2 MG/2 ML VIAL ONE (08:36)
[2022-05-06] MEDS ORDERED: ROPIVACAINE 5 MG/ML 20 ML AMPULE ONE (08:36)
[2022-05-06] MEDS ORDERED: TRIAMCINOLONE ACETONIDE 40 MG/ML 1 ML VIAL ONE (08:36)
--- NOTE | 2022-05-06 08:50 | P.PCN ---
Date of Procedure: 05/06/22 Surgeon: Aamir Henning Pathology: none sent Condition: stable Disposition: PACU Description of Procedure: PREOPERATIVE DIAGNOSIS : 1- Lumbar spondylosis with Facet Arthropathy without myelopathy . 2- Lumber degenerative disc disease POSTOPERATIVE DIAGNOSIS: 1- Lumbar spondylosis with Facet Arthropathy without myelopathy . 2- Lumber degenerative disc disease PROCEDURE: Diagnostic left L4 -5 , and L5-S1 medial branch block under fluoroscopy Physician: Aamir Henning MD ANESTHESIA: Local with 1% lidocaine; IV moderate conscious sedation with Versed 2 mg by the anesthesia Department . EBL: Negligible COMPLICATION: None. PROCEDURE INDICATION: Chronic low back pain secondary to Facet arthropathy unresponsive to conservative treatment. PROCEDURE DESCRIPTION: the patient was seen and identified in the preop holding area , risks and benefits and possible complications of the procedure and alternatives were discussed with the patient, and the patient agreed to proceed with the procedure and signed the consent. IV was started and vital signs monitored during the procedure and fluoroscopy was used to maximize the benefit and accuracy of the needle placement, sedation was given to decrease patient anxiety, patient was taken to the procedure room and placed in prone position vital signs monitored. The patient was brought into the procedure room and placed in prone position. Skin was prepped with Chloraprep and draped in a sterile manner. Lidocaine 1% was used to numb the skin up at the target points that were chosen as follows: at the L5-S1 level which corresponds to the dorsal ramus of L5 the target points were at the superior medial aspect of the sacral ala on each side of the spine on the AP view of fluoroscopy, and for the L3 and L4 medial branches the target points were the connection between the transverse process and the superior articular process of L4 and L5 respectively on the oblique views of fluoroscopy. I used 22-gauge 3-1/2 inch Quincke spinal needles for this procedure and after contacting bone at the target points mentioned above I injected 1 mL of a mixture of Kenalog 40 mg +2 MLS of Ropivacaine 0.5% PF . Patient tolerated procedure well. At the end of the procedure the needles removed and a bandage applied after the skin was cleaned the cleaning solution. patient was then taken to the recovery room in stable condition and monitored in the recovery room for 20-30 minutes and discharged home in stable condition after discharge criteria met . A copy of the needle placement picture was saved to the C-arm machine.
[2022-05-06] MEDS ORDERED: IV FLUID CONTINUATION 950 ML IV ONE (08:56)
--- NOTE | 2022-05-06 08:57 | FL ---
Fluoroscopy History: FACET BLOCK LUM/S FACET BLOCK LUM/S. DR KELLEY. 6 SEC FL TIME. 4 IMAGES SENT.
[2022-05-06 09:14] VITALS: PULSE 54
[2022-05-06 09:19] VITALS: BP 118/69
== END 2022-05-06 09:42 | disposition home or self-care (01) ==
LOC: ORPAIN 07:54
PROVIDERS: ATTEND Anesthesiology
DX: M47.816 Spondylosis without myelopathy or radiculopathy, lumbar region (principal); M51.36 Other intervertebral disc degeneration, lumbar region; I48.91 Unspecified atrial fibrillation; I10 Essential (primary) hypertension; E07.9 Disorder of thyroid, unspecified; M19.90 Unspecified osteoarthritis, unspecified site; H35.30 Unspecified macular degeneration; K21.9 Gastro-esophageal reflux disease without esophagitis; Z85.828 Personal history of other malignant neoplasm of skin; Z79.01 Long term (current) use of anticoagulants; Z79.899 Other long term (current) drug therapy; Z79.890 Hormone replacement therapy; Z88.8 Allergy status to other drugs, medicaments and biological substances; Z88.5 Allergy status to narcotic agent; Z88.0 Allergy status to penicillin; Z88.2 Allergy status to sulfonamides; Z90.49 Acquired absence of other specified parts of digestive tract; Z98.890 Other specified postprocedural states
CPT/HCPCS: 64493; 64494; J2250; J3301; J2405; J2795

== ENCOUNTER → 2022-05-25 | Outpatient (CLI) | payer MEDICARE ==
[~2022-05-25] MED LIST changes: +DENOSUMAB 60 MG/ML 1 ML SYRINGE SQ NR; -LACTATED RINGERS 1,000 ML IV SCH
[2022-05-25 10:01] VITALS: BP 152/87; PULSE 61; RESP 16; TEMP 97.7
== END | disposition home or self-care (01) ==
LOC: PROCWHC3 09:35
PROVIDERS: ATTEND Internal Medicine
DX: M81.0 Age-related osteoporosis without current pathological fracture (principal); S12.000D Unspecified displaced fracture of first cervical vertebra, subsequent encounter for fracture with routine healing; X58.XXXD Exposure to other specified factors, subsequent encounter
CPT/HCPCS: 96372; J0897

== ENCOUNTER 2022-07-15 10:09 | Day surgery (SDC) | payer MEDICARE ==
[2022-07-14 09:32] VITALS: BMI 27.0
[~2022-07-15 10:09] MED LIST changes: -DENOSUMAB 60 MG/ML 1 ML SYRINGE SQ NR; +LACTATED RINGERS 1,000 ML IV SCH; +LIDOCAINE 1% (10MG/ML) FOR IV START INTRADERMA PRN
[2022-07-15 10:38] VITALS: RESP 18; TEMP 96.8
[2022-07-15] MEDS ORDERED: MIDAZOLAM 2 MG/2 ML VIAL ONE (10:49)
[2022-07-15] MEDS ORDERED: ROPIVACAINE 5 MG/ML 20 ML AMPULE ONE (10:49)
[2022-07-15] MEDS ORDERED: methylPREDNISolone ACETATE 40 MG/ML 1 ML VIAL ONE (10:49)
--- NOTE | 2022-07-15 11:07 | P.PCN ---
Date of Procedure: 07/15/22 Procedure(s) Performed: PREOPERATIVE DIAGNOSIS : 1- Lumbar spondylosis with Facet Arthropathy without myelopathy . 2- Lumber degenerative disc disease POSTOPERATIVE DIAGNOSIS: 1- Lumbar spondylosis with Facet Arthropathy without myelopathy . 2- Lumber degenerative disc disease PROCEDURE: Diagnostic Left L3 , L4 , and L5 medial branch block under fluoroscopy guidance(fluoroscopy images available in the radiology Department ) ( To target the facet joint between Left L4-5 , and L5-S1 )# 2nd ANESTHESIA:, Monitored anesthesia care as per anesthesia department. EBL: Minimal COMPLICATION: None PROCEDURE INDICATION: Chronic low back pain secondary to Facet arthropathy unresponsive to conservative treatment. PROCEDURE DESCRIPTION: the patient was seen and identified in the preop holding area , risks and benefits and possible complications of the procedure and alternative were discussed with the patient, and the patient agreed to proceed with the procedure and signed the consent and vital signs monitored during the procedure and fluoroscopy was used to maximize the benefit and accuracy of the needle placement, and sedation was given to decrease patient anxiety, patient was taken to the procedure room and placed in prone position vital signs monitored in the back prepped with chlorhexidine X3 then under strict sterile technique using a right oblique fluoroscopy ,the junction of the transverse process and the superior articulating process of the left L3 , L4 , and L5 vertebra which corresponding to the fluoroscopy image of the eye of the Felton dog on the block side for the medial branches and subsequently , after local infiltration of skin and subcu tissuies with Ropivacaine 0.5 % , one mL at each level ,then 25-gauge 3.5 inches long Quincke-type needles , 3 needle was used , each one of them placed at the junction of the base of the transverse process and the superior articular process at the appropriate level, and the needle was advanced until the periosteum contacted, needle placement confirmed with AP oblique and lateral view and after appropriate needle placement confirmed, and after negative aspiration for heme and CSF and there was no paresthesia 1-1/2 mL of Ropivacaine 0.5% mixed with 20 mg Depo-Medrol , then half mL injected at each level after negative aspiration the needle subsequently removed intact . At the end of the procedure and the needles removed and a bandage applied after the skin was cleaned the cleaning solution patient taken to recovery room in stable condition and monitors in the recovery room for 20-30 minutes and discharged home in stable condition after discharge criteria met and patient will follow up with the pain clinic in 2-4 weeks
[2022-07-15] MEDS ORDERED: IV FLUID CONTINUATION 800 ML IV ONE (11:09)
[2022-07-15 11:38] VITALS: BP 132/67; PULSE 53
--- NOTE | 2022-07-15 11:39 | FL ---
Fluoroscopy History: LT LUM FACET BLOCK LT LUM FACET BLOCK . 13 SEC FL TIME. 2 PICS ON SYN
== END 2022-07-15 11:53 | disposition home or self-care (01) ==
LOC: ORPAIN 10:09
PROVIDERS: ATTEND Specialist
DX: M51.36 Other intervertebral disc degeneration, lumbar region (principal); Z91.041 Radiographic dye allergy status; Z88.5 Allergy status to narcotic agent; Z88.0 Allergy status to penicillin; M47.816 Spondylosis without myelopathy or radiculopathy, lumbar region; G89.29 Other chronic pain
CPT/HCPCS: 64493; 64494; J2250; J1030; J2795

== ENCOUNTER → 2023-06-30 | Outpatient (CLI) | payer MEDICARE ==
--- NOTE | 2023-06-30 13:40 | BD ---
EXAMINATION TYPE: Axial Bone Density DATE OF EXAM: 06/30/2023 CLINICAL HISTORY: 88 years old Female. 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 Type 1 Diabetes: no 2. Hyperthyroidism: no 3. Menopause before 45: no 4. Malnutrition: no 5. Chronic liver disease: no Rheumatoid Arthritis: no Current Tobacco Use: no RISK FACTORS HISTORY OF: Hip Fracture (Right/Left): no When: Spine Fracture: yes When: 2020 History of Wrist Fracture: rt wrist When: 30 years ago Surgery to Spine/Hip(right/left)/Wrist (right/left): no Family History of Osteoporosis: no Active: yes Diet low in dairy products/other sources of calcium: yes Postmenopausal woman: yes Take estrogen and/or progesterone medications: no Lost more than 2 inches in height since high school: yes Frequent falls: yes Poor Health: no Hyperparathyroidism: no Adrenal Insufficiency: no MEDICATIONS: Prednisone or other steroids: no Thyroid Medications: Synthroid How Long: past 6 years Osteoporosis Medications: no Additional Medications: Atorvastatin, Eliquis, Omeprazole Additional History: EXAM MEASUREMENTS: Bone mineral density about the R hip (g/cm2): 0.838 Bone mineral density about the L hip (g/cm2): 0.854 T Score values are as follows: -----R Neck: -2.1 -----L Neck: -1.7 -----R Total: -1.3 -----L Total: -1.2 Z Score values are as follows: -----R Neck: 0.3 -----L Neck: 0.7 -----R Total: 1.0 -----L Total: 1.1 Bone mineral density has: decreased -0.2 % since study of: 11/19/2020 Bone mineral density about the L Wrist (g/cm2): 0.402 T Score values are as follows: -----Dist. R+U: -2.7 -----Prox. R+U: -3.6 -----Radius total: -4.5 Z Score values are as follows: -----Dist. R+U: 008 -----Prox. R+U: -0.2 -----Radius total: -1.1 BASELINE STUDY FOR WRIST FRAX%s: The graph provided illustrates a 13.9 % chance for a major osteoporotic fx and a 4.5% chance for the hips probability for fx in 10 years time. IMPRESSION: Osteoporosis (T Score less than -2.5). There is increased fracture risk and therapy is usually indicated based on age. Re-Screen 1-2 years. NOTE: T-SCORE=SD OF THE YOUNG ADULT MEAN.
== END | disposition home or self-care (01) ==
LOC: RADBDWWP 08:55
PROVIDERS: ATTEND Internal Medicine
DX: M81.0 Age-related osteoporosis without current pathological fracture (principal); M85.89 Other specified disorders of bone density and structure, multiple sites; Z78.0 Asymptomatic menopausal state
CPT/HCPCS: 77080

== ENCOUNTER → 2023-10-02 | Outpatient (CLI) | payer MEDICARE ==
[~2023-10-02] MED LIST changes: +DENOSUMAB 60 MG/ML 1 ML SYRINGE SQ ONE; -LACTATED RINGERS 1,000 ML IV SCH; -LIDOCAINE 1% (10MG/ML) FOR IV START INTRADERMA PRN
[2023-10-02 12:17] VITALS: BP 117/77; PULSE 74; RESP 16; TEMP 98
== END ==
LOC: PROCWHC3 11:44
PROVIDERS: ATTEND Internal Medicine
DX: M81.0 Age-related osteoporosis without current pathological fracture (principal); S12.000D Unspecified displaced fracture of first cervical vertebra, subsequent encounter for fracture with routine healing
CPT/HCPCS: 96372; J0897

== ENCOUNTER → 2024-04-09 | Outpatient (CLI) | payer MEDICARE ==
[~2024-04-09] MED LIST changes: +DENOSUMAB 60 MG/ML 1 ML SYRINGE SQ NR; -DENOSUMAB 60 MG/ML 1 ML SYRINGE SQ ONE
[2024-04-09 11:17] VITALS: BP 137/78; PULSE 52; RESP 16; TEMP 98.1
[2024-04-09] MEDS: DENOSUMAB 60 MG/ML 1 ML SYRINGE SQ NR (11:18)
== END ==
LOC: PROCWHC3 11:01
PROVIDERS: ATTEND Internal Medicine
DX: M81.0 Age-related osteoporosis without current pathological fracture (principal); S12.000D Unspecified displaced fracture of first cervical vertebra, subsequent encounter for fracture with routine healing
CPT/HCPCS: 96372; J0897

== ENCOUNTER → 2025-03-03 | Outpatient (CLI) | payer MEDICARE ==
[2025-03-03 12:40] LABS: African American GFR (CKD) >90 (>60 ml/min/1.73 sqM); Blood Urea Nitrogen 17 mg/dL (7-17); Non-African American GFR(CKD) 79 (>60 ml/min/1.73 sqM)
--- NOTE | 2025-03-03 16:47 | CT ---
EXAMINATION TYPE: CT urogram wo/w con CT DLP: 1338.6 mGycm, Automated exposure control for dose reduction was used. DATE OF EXAM: 03/03/2025 2:28 PM COMPARISON: CT pelvis 03/12/2021, CT lumbar spine 03/12/2021, CT left hip 03/11/2021 CLINICAL INDICATION:Female, 89 years old with history of R31.9 HEMATURIA, UNSPECIFIED; PHH, hematuria previously TECHNIQUE: Urogram of the abdomen and pelvis was performed before and after the administration of 100 cc of IV c ontrast Isovue 300 contrast. Delayed imaging was performed. Coronal and sagittal reformats were perfo rmed. One or more CT dose reduction strategies were utilized during this examination. 2D and 3D recon structions are performed to assist visualization of the urinary tract on a separate workstation. FINDINGS: GENITOURINARY: RIGHT KIDNEY AND URETER: No calculi. No hydronephrosis or hydroureter. Right renal mid pole cortical 6 mm hyperdense focus on noncontrast imaging without distinct enhancement on postcontrast imaging. Mo st consistent with a proteinaceous/hemorrhagic cyst. No suspicious enhancing renal lesion. No urothel ial lesions: no filling defect, dilation, stricture or wall thickening. LEFT KIDNEY AND URETER: No calculi. No hydronephrosis or hydroureter. Tiny left renal enhancing subse gmental cortical cysts. No suspicious enhancing renal lesion. No urothelial lesions: no filling defec t, dilation, stricture or wall thickening. URINARY BLADDER: Moderately well distended. Normal, no calculi, mass or other lesions. REPRODUCTIVE: Unremarkable. ABDOMEN LIVER: Unremarkable. GALLBLADDER AND BILE DUCTS: Unremarkable PANCREAS: Unremarkable. SPLEEN: Unremarkable. ADRENAL GLANDS: Unremarkable. STOMACH AND BOWEL: Sigmoid diverticulosis without evidence for acute diverticulitis.. No evidence of bowel obstruction. PERITONEUM: No evidence of pneumoperitoneum, free fluid, or adenopathy. VASCULATURE: No aortic aneurysm. Moderate atherosclerotic calcification of the aorta and its branches . MUSCULOSKELETAL: No acute osseous abnormalities. Degenerative changes of the pubic symphysis. Remote left inferior and superior pubic rami fractures. Mild multilevel degenerative disc disease of the tho racolumbar spine. Atrophy of the bilateral paravertebral musculature. SOFT TISSUE/ABDOMINAL WALL: Unremarkable. LOWER CHEST: Mild bibasilar linear atelectasis. Mild cardiomegaly. Mild coronary arterial calcificati ons.. IMPRESSION: 1. No evidence of urolithiasis or enhancing renal/urothelial neoplasm. 2. Subcentimeter right renal cortical hyperdense lesion without definitive enhancement. Most consiste nt with a proteinaceous/hemorrhagic cyst. Additional nonenhancing left renal subcentimeter simple cys t. No follow-up recommended. 3. Sigmoid diverticulosis without evidence for acute diverticulitis. [facility], , 03/03/2025 4:44 PM
== END | disposition home or self-care (01) ==
LOC: RADCTMAIN 11:50
PROVIDERS: ATTEND Internal Medicine
DX: N28.89 Other specified disorders of kidney and ureter (principal); K57.30 Diverticulosis of large intestine without perforation or abscess without bleeding; N28.1 Cyst of kidney, acquired; R31.9 Hematuria, unspecified
CPT/HCPCS: 82565; 84520; 74178; 36415; 74400; Q9967

== ENCOUNTER 2025-03-07 09:59 | Emergency (ER) | payer MEDICARE ==
[2025-03-07 10:12] VITALS: TEMP 97.8
[2025-03-07 10:39] LABS: Basophils # (A) 0.03 10*3/uL (0.00-0.10); Basophils % (A) 0.6 %; Eosinophils # (A) 0.05 10*3/uL (0.04-0.35); Eosinophils % (A) 0.9 %; HGB 14.4 g/dL (12.0-15.0); Lymphocytes # (A) 1.29 10*3/uL (0.90-5.00); Lymphocytes % (A) 23.9 %; MCH 32.7 pg (27.0-32.0); MCHC 34.3 g/dL (32.0-37.0); MCV 95.5 fL (80.0-97.0); Monocytes % (A) 11.1 %; Neutrophils # (A) 3.38 10*3/uL (1.80-7.70); Neutrophils % (A) 62.6 %; Platelet Count 277 10*3/uL (140-440); RDW 14.6 % (11.5-14.5)
--- NOTE | 2025-03-07 10:44 | ED ---
General Adult HPI - General Chief complaint: Arrhythmia/Palpitations Stated complaint: Irr Heart Rate Time Seen by Provider: 03/07/25 10:14 Source: patient, RN notes reviewed, old records reviewed Mode of arrival: ambulatory Limitations: no limitations - History of Present Illness Initial comments: 89-year-old female presenting with palpitations. History of atrial fibrillation. Patient is on Xarelto, metoprolol and amiodarone. She states that she has palpitations specifically with exertion. Denies central chest pain. She had an episode this morning with associated lightheadedness and diaphoresis. There was no pain associated with this episode. Patient denies lower extremity pain or swelling. She had a diagnosis of pneumonia approximately 1 month ago which she received antibiotics and states she has improved from. - Related Data Home Medications Medication Instructions Recorded Confirmed Levothyroxine Sodium [Synthroid] 50 mcg PO QAM 03/21/17 04/09/24 Atorvastatin [Lipitor] 20 mg PO DAILY 05/28/19 04/09/24 Metoprolol Tartrate [Lopressor] 25 mg PO DAILY 05/28/19 04/09/24 Amiodarone [Cordarone] 200 mg PO Q48H 12/03/19 04/09/24 Apixaban [Eliquis] 5 mg PO DAILY 11/08/21 04/09/24 Acetaminophen Tab [Tylenol] 650 mg PO Q4H PRN 05/05/22 04/09/24 Allergies Allergy/AdvReac Type Severity Reaction Status Date / Time iodine Allergy Unknown blisters Verified 04/09/24 11:13 morphine Allergy Unknown Unknown Verified 04/09/24 11:13 aloe Allergy Unknown Verified 04/09/24 11:13 codeine Allergy Unknown Verified 04/09/24 11:13 piperacillin [From Zosyn] Allergy Rash/Hives Verified 04/09/24 11:13 Sulfa (Sulfonamide Allergy Unknown Verified 04/09/24 11:13 Antibiotics) tazobactam [From Zosyn] Allergy Rash/Hives Verified 04/09/24 11:13 Review of Systems ROS Statement: Those systems with pertinent positive or pertinent negative responses have been documented in the HPI. ROS Other: All systems not noted in ROS Statement are negative. Past Medical History Past Medical History: Atrial Fibrillation, Cancer, GERD/Reflux, Hypertension, Osteoarthritis (OA), Pneumonia, Thyroid Disorder Additional Past Medical History / Comment(s): States was very ill end of with severe sore throat, chills, earache, headache and bodyaches, states did not have a Covid test. 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 History of Any Multi-Drug Resistant Organisms: MRSA Date of last positivie culture/infection: 03/21/2017 MDRO Source:: left buttock/left labia Past Surgical History: Appendectomy, Breast Surgery, Tonsillectomy Additional Past Surgical History / Comment(s): Varicose vein stripping, bilateral cataract removal and intraocular lens implants, skin biopsies and skin cancer removal, bilateral breast lumpectomy/cyst excision, I&D 03/15/17 and 03/21/17 of left buttock and left labia, colonoscopy, Pain Clinic Procedure. Past Anesthesia/Blood Transfusion Reactions: Family History of Problems w/ An esthesia, Motion Sickness, Postoperative Nausea & Vomiting (PONV) Additional Past Anesthesia/Blood Transfusion Reaction / Comment(s): Family hx of PONV. No hx blood transfusion. Past Psychological History: No Psychological Hx Reported Smoking Status: Former smoker Past Alcohol Use History: None Reported Past Drug Use History: None Reported - Past Family History Mother Family Medical History: AICD/Pacemaker, CVA/TIA, Thyroid Disorder Father Family Medical History: Cancer, COPD, GI Bleed Sister(s) Family Medical History: Cancer Additional Family Medical History / Comment(s): Breast cancer. Daughter(s) Family Medical History: Cancer Additional Family Medical History / Comment(s): Thyroid cancer. Granddaughter- thyroid cancer. General Exam Limitations: no limitations General appearance: alert, in no apparent distress Head exam: Present: atraumatic, normocephalic Eye exam: Present: normal appearance, PERRL ENT exam: Present: normal exam Neck exam: Present: normal inspection. Absent: tenderness Respiratory exam: Present: normal lung sounds bilaterally. Absent: respiratory distress, wheezes, rales Cardiovascular Exam: Present: regular rate, irregular rhythm GI/Abdominal exam: Present: soft. Absent: distended, tenderness, guarding Extremities exam: Present: normal inspection, normal capillary refill. Absent: pedal edema, calf tenderness Neurological exam: Present: alert, oriented X3 Psychiatric exam: Present: normal affect, normal mood Course Vital Signs 03/07/25 10:10 Temperature 97.8 F Pulse Rate 89 Respiratory 20 Rate Blood Pressure 127/85 O2 Sat by Pulse 95 Oximetry Medical Decision Making - Medical Decision Making Was pt. sent in by a medical professional or institution (MIKALA Mcgarry, FORMULATION CHEMIST, urgent care, hospital, or care home...) When possible be specific @ -No Did you speak to anyone other than the patient for history (EMS, parent, family, police, friend...)? What history was obtained from this source @ -No Did you review nursing and triage notes (agree or disagree)? Why? @ -I reviewed and agree with nursing and triage notes Were old charts reviewed (outside hosp., previous admission, EMS record, old EKG, old radiological studies, urgent care reports/EKG's, care home records)? Report findings @ -No old charts were reviewed Differential Palpitations Ventricular arrhythmias, atrial arrhythmias, myocardial infarction, anemia, thyrotoxicosis, electrolyte imbalance, hypokalemia, pulmonary embolism, pulmonary disease, drugs, alcohol, anxiety, stress.... This is not meant to be an all-inclusive list. EKG interpreted by me (3pts min.). @ -Atrial flutter with a ventricular rate of 85, QRS duration 90, QTc [address] segment elevation. X-rays interpreted by me (1pt min.). @ -[Chest x-ray is negative for acute cardiopulmonary findings CT interpreted by me (1pt min.). @ -None done U/S interpreted by me (1pt. min.). @ -None done What testing was considered but not performed or refused? (CT, X-rays, U/S, labs)? Why? @ -None What meds were considered but not given or refused? Why? @ -None Did you discuss the management of the patient with other professionals (professionals i.e. MIKALA Mcgarry, FORMULATION CHEMIST, lab, RT, psych nurse, clinical social work therapist, dredge deckhand, teacher, environmental conservation officer, caseworker intake)? Give summary @ -No Was smoking cessation discussed for >3mins.? @ -No Was critical care preformed (if so, how long)? @ -No Were there social determinants of health that impacted care today? How? (Homelessness, low income, unemployed, alcoholism, drug addiction, transportation, low edu. Level, literacy, decrease access to med. care, fci, rehab)? @ -No Was there de-escalation of care discussed even if they declined (Discuss DNR or withdrawal of care, Hospice)? DNR status @ -No What co-morbidities impacted this encounter? (DM, HTN, Smoking, COPD, CAD, Cancer, CVA, ARF, Chemo, Hep., AIDS, mental health diagnosis, sleep apnea, morbid obesity)? @ -Atrial fibrillation Was patient admitted / discharged? Hospital course, mention meds given and route, prescriptions, significant lab abnormalities, going to OR and other pertinent info. @ -89-year-old female with palpitation. Patient is in a rate controlled a flutter with stable blood pressure. Chest x-ray is clear. Normal CBC, normal CMP, negative troponin. Patient remains asymptomatic while in the emergency department. She will discuss her symptoms with her security ambassador, possibly needs monitoring. Undiagnosed new problem with uncertain prognosis? @ -No Drug Therapy requiring intensive monitoring for toxicity (Heparin, Nitro, Insulin, Cardizem)? @ -No Were any procedures done? @ -No Diagnosis/symptom? @ -[Palpitations, history of atrial fibrillation Acute, or Chronic, or Acute on Chronic? @ -Acute on chronic Uncomplicated (without systemic symptoms) or Complicated (systemic symptoms)? @ -Default Side effects of treatment? @ -No Exacerbation, Progression, or Severe Exacerbation? @ -No Poses a threat to life or bodily function? How? (Chest pain, [place], [place], pneumonia, PE, COPD, DKA, ARF, appy, cholecystitis, CVA, Diverticulitis, Homicidal, Suicidal, threat to staff... and all critical care pts) @ -No - Lab Data Result diagrams: 03/07/25 10:27 03/07/25 10:27 Lab Results 03/07/25 03/07/25 03/07/25 Range/Units 10:27 10: 10:27 WBC 5.40 (4.50-10.00) 10*3/uL RBC 4.40 (4.10-5.20) 10*6/uL Hgb 14.4 (12.0-15.0) g/dL Hct 42.0 (37.2-46.3) % MCV 95.5 (80.0-97.0) fL MCH 32.7 H (27.0-32.0) pg MCHC 34.3 (32.0-37.0) g/dL Plt Count 277 (140-440) 10*3/uL MPV 10.0 (9.5-12.2) fL Immature Gran % (Auto) 0.9 % Neutrophils % 62.6 % Lymphocytes % 23.9 % Monocytes % 11.1 % Eosinophils % 0.9 % Basophils % 0.6 % Immature Gran # 0.05 H (0.00-0.04) 10*3/uL Neutrophils # 3.38 (1.80-7.70) 10*3/uL Lymphocytes # 1.29 (0.90-5.00) 10*3/uL Monocytes # 0.60 (0.20-1.00) 10*3/uL Eosinophils # 0.05 (0.04-0.35) 10*3/uL Basophils # 0.03 (0.00-0.10) 10*3/uL PT 18.8 H (10.0-12.5) sec INR 1.8 H (<1.2) APTT 37.6 H (22.0-30.0) sec Sodium 135 L (137-145) mmol/L Potassium 4.2 (3.5-5.1) mmol/L Chloride 102 (98-107) mmol/L Carbon Dioxide 25 (22-30) mmol/L Anion Gap 8 mmol/L BUN 14 (7-17) mg/dL Creatinine 0.97 (0.52-1.04) mg/dL Est GFR (CKD-EPI)AfAm 60 (>60 ml/min/1.73 sqM) Est GFR (CKD-EPI)NonAf 52 (>60 ml/min/1.73 sqM) Glucose 136 H (74-99) mg/dL Calcium 9.5 (8.4-10.2) mg/dL Magnesium 1.8 (1.6-2.3) mg/dL Total Bilirubin 0.8 (0.2-1.3) mg/dL AST 26 (14-36) U/L ALT 23 (4-34) U/L Alkaline Phosphatase 65 (38-126) U/L Troponin I (0.000-0.034) ng/mL Total Protein 7.0 (6.3-8.2) g/dL Albumin 4.2 (3.5-5.0) g/dL 03/07/25 Range/Units 10:27 WBC (4.50-10.00) 10*3/uL RBC (4.10-5.20) 10*6/uL Hgb (12.0-15.0) g/dL Hct (37.2-46.3) % MCV (80.0-97.0) fL MCH (27.0-32.0) pg MCHC (32.0-37.0) g/dL Plt Count (140-440) 10*3/uL MPV (9.5-12.2) fL Immature Gran % (Auto) % Neutrophils % % Lymphocytes % % Monocytes % % Eosinophils % % Basophils % % Immature Gran # (0.00-0.04) 10*3/uL Neutrophils # (1.80-7.70) 10*3/uL Lymphocytes # (0.90-5.00) 10*3/uL Monocytes # (0.20-1.00) 10*3/uL Eosinophils # (0.04-0.35) 10*3/uL Basophils # (0.00-0.10) 10*3/uL PT (10.0-12.5) sec INR (<1.2) APTT (22.0-30.0) sec Sodium (137-145) mmol/L Potassium (3.5-5.1) mmol/L Chloride (98-107) mmol/L Carbon Dioxide (22-30) mmol/L Anion Gap mmol/L BUN (7-17) mg/dL Creatinine (0.52-1.04) mg/dL Est GFR (CKD-EPI)AfAm (>60 ml/min/1.73 sqM) Est GFR (CKD-EPI)NonAf (>60 ml/min/1.73 sqM) Glucose (74-99) mg/dL Calcium (8.4-10.2) mg/dL Magnesium (1.6-2.3) mg/dL Total Bilirubin (0.2-1.3) mg/dL AST (14-36) U/L ALT (4-34) U/L Alkaline Phosphatase (38-126) U/L Troponin I <0.012 (0.000-0.034) ng/mL Total Protein (6.3-8.2) g/dL Albumin (3.5-5.0) g/dL Disposition Clinical Impression: Atrial fibrillation Disposition: HOME SELF-CARE Condition: Fair Instructions (If sedation given, give patient instructions): Heart Palpitations (ED) Is patient prescribed a controlled substance at d/c from ED?: No Referrals: Mark Faulkner MD [Primary Care Provider] - 1-2 days Time of Disposition: 11:37
--- NOTE | 2025-03-07 10:49 | XR ---
EXAMINATION TYPE: XR chest 2V DATE OF EXAM: 03/07/2025 CLINICAL INDICATION: Female, 89 years old with history of dysrhythmia, TECHNIQUE: Frontal and lateral views of the chest are obtained. COMPARISON: Chest x-ray March 13, 2021 FINDINGS: There is no focal air space opacity, pleural effusion, or pneumothorax seen. Cardiomegaly is present. Scoliosis is seen. IMPRESSION: Cardiomegaly without acute pulmonary process. [facility], , 03/07/2025 10:46 AM
[2025-03-07 11:07] LABS: INR 1.8 (<1.2); Partial Thromboplastin Time 37.6 sec (22.0-30.0); Prothrombin Time 18.8 sec (10.0-12.5)
[2025-03-07 11:08] LABS: ALT 23 U/L (4-34); AST 26 U/L (14-36); African American GFR (CKD) 60 (>60 ml/min/1.73 sqM); Albumin 4.2 g/dL (3.5-5.0); Alkaline Phosphatase 65 U/L (38-126); Anion Gap 8 mmol/L; Blood Urea Nitrogen 14 mg/dL (7-17); Calcium 9.5 mg/dL (8.4-10.2); Carbon Dioxide 25 mmol/L (22-30); Chloride 102 mmol/L (98-107); Glucose 136 mg/dL (74-99); Magnesium 1.8 mg/dL (1.6-2.3); Non-African American GFR(CKD) 52 (>60 ml/min/1.73 sqM); Potassium 4.2 mmol/L (3.5-5.1); Sodium 135 mmol/L (137-145); Total Bilirubin 0.8 mg/dL (0.2-1.3)
[2025-03-07 11:53] VITALS: BP 129/99; PULSE 81; RESP 18
== END 2025-03-07 11:53 | disposition home or self-care (01) ==
LOC: EC 09:59
DX: I48.91 Unspecified atrial fibrillation (principal); Z79.01 Long term (current) use of anticoagulants; Z88.0 Allergy status to penicillin; Z88.1 Allergy status to other antibiotic agents; Z88.2 Allergy status to sulfonamides; Z88.8 Allergy status to other drugs, medicaments and biological substances; Z91.041 Radiographic dye allergy status; Z87.891 Personal history of nicotine dependence
CPT/HCPCS: 36415; 71046; 80053; 83735; 84484; 85025; 85610; 85730; 93005; 99285

== ENCOUNTER → 2025-03-31 | Outpatient (CLI) | payer MEDICARE ==
[2025-03-31 13:21] VITALS: BP 119/70; PULSE 71; RESP 18; TEMP 96.9
[2025-03-31] MEDS: DENOSUMAB 60 MG/ML 1 ML SYRINGE SQ NR (13:21)
== END ==
LOC: PROCWHC3 13:07
PROVIDERS: ATTEND Internal Medicine
DX: M81.0 Age-related osteoporosis without current pathological fracture (principal)
CPT/HCPCS: 96372; J0897